=== PATIENT | female | born 1995 | race Caucasian/White ===

== ENCOUNTER 2017-07-20 15:34 | Emergency (ER) | payer BC, OTHER ==
[~2017-07-20] VITALS: Ht 154.9 cm; Wt 106.7 kg
[~2017-07-20 15:34] MED LIST: ENOX1INJ10 SQ; PRENTAB26 PO
[2017-07-20 15:36] VITALS: BP 185/98; PULSE 92; TEMP 36.8; O2SAT 96; Ht 154.9 cm; Wt 106.7 kg
[2017-07-20] MEDS ORDERED: OXYC1TAB3 PO (15:55)
--- NOTE | 2017-07-20 15:57 | EMERGENCY ROOM VISIT NOTE ---
ED Visit Note First contact with patient: 15:41 CHIEF COMPLAINT: "Mouth, tooth, earache". HISTORY OF PRESENT ILLNESS: This 22-year-old female patient presented to the emergency department via private vehicle accompanied by male with a progressive toothache for past month when she fractured her left upper tooth. The patient believes it is coming from left upper tooth #13-14. The pain is now steady and severe and radiates to the left side of the face such as the left eye and left ear. The patient has a dentist appointment set up August 20 for complete upper dentition removal. They rate their pain a 4/10 and the ibuprofen and Tylenol they have been taking has not relieved the pain. Denies facial swelling or fever. The patient denies any discharge from the mouth. REVIEW OF SYSTEMS: A 6 system review of systems was completed with positives and pertinent negatives listed in the HPI. ALLERGIES: As noted below MEDICATIONS: As noted below PMH: Dental fracture SOCIAL HISTORY: Patient lives locally. PHYSICAL EXAM: Vitals are noted on the nurse's note and reviewed by myself. Vital signs stable. Temperature 36.8C orally. GENERAL: 22-year-old female, in no acute distress, nondiaphoretic, well-developed well-nourished. Mouth: The left dentition #13-14 tooth is fractured without any discharge or signs of an abscess. No erythema or edema. The remainder of the pharynx and tonsils are without erythema, edema, or exudate. The airway is patent. There is no facial swelling, cervical or submandibular lymphadenopathy. The patient appears slightly uncomfortable and in pain. The patient has overall fair dental hygiene. EARS: External auditory canals clear, tympanic membranes pearly anne without erythema or effusion bilaterally. ED COURSE: Patient was seen and evaluated as above. She was instructed us today status post fractured tooth. She admits that her family doctor has prescribed her Tylenol with codeine, but it is not helping. She notes this is her only active prescription. Positive drug monitoring system verifies this. She informed me that she does not want anything strong but needs to make it one month until she can have her teeth removed. She will be given oxycodone. She denied chance of . Although the [place] drug monitoring system does have various scrips throughout the course of a year, these appear to be from consistent individuals, and does not frequent ER here for pain medication like complaints. I will give her the benefit of the doubt in this case and give her pain medication. I did inform her however that we would not be able to manage this chronically. She will have to call the dentist for further evaluation and management. She was certainly invited back for any worsening of her symptoms such as infection. She was educated upon management, educated upon worrisome symptoms which to return, had questions answered prior to discharge, and was discharged home in good condition. IMPRESSION: Odontalgia In the evaluation and treatment of this patient, the following differential diagnoses were considered: Periapical Abscess, Osteonecrosis of the Jaw, Dental Fracture, Dental Caries, Souleymane's Angina, Vincent's Angina, Facial Cellulitis. No evidence of meningitis or encephalitis on exam. Medication list reviewed. Hypertensive I believe secondary to situation. Problem List Medical Problems: (1) Acute cystitis Status: Resolved (2) Bronchitis Status: Resolved (3) Kidney stone Status: Resolved (4) PNA (pneumonia) Status: Resolved (5) Renal stone Status: Resolved Surgical Problems: (1) History of cholecystectomy Status: Resolved Current/Historical Medications Scheduled Enoxaparin Sodium (Lovenox), 40 MG SQ DAILY Multivit/Min/Iron/Fol Ac/Pren ( Vitamin), 1 TAB PO DAILY Scheduled PRN Oxycodone Ir (Roxicodone Ir), 1-2 TAB PO Q4H PRN for Pain Allergies Coded Allergies: Dust (Verified Allergy, Unknown, ITCHY, 10/19/13) Meperidine (Verified Allergy, Unknown, HIVES, 10/19/13) Penicillins (Verified Allergy, Unknown, + TEST RESULT, 10/19/13) Vital Signs Date Time Temp Pulse Resp B/P (MAP) Pulse Ox O2 Delivery O2 Flow Rate FiO2 07/20/17 15:36 36.8 92 18 185/98 96 Room Air Departure Information Impression Primary Impression: Odontalgia Dispostion Home / Self-Care Condition GOOD Prescriptions Oxycodone Ir (Roxicodone Ir) 5 Mg Tab 1-2 TAB PO Q4H Y for Pain, #20 TAB For Initial Treatment Prov: Raghu Ingram PA-C 07/20/17 Referrals Emiliano Barr M.D. (PCP) Patient Instructions [facility] Additional Instructions You have been treated in the Emergency Department for Dental Pain. You have been prescribed Oxy IR to be used for pain control. This is a narcotic medication. You cannot drive or consume alcohol while on this medicine. This medicine should only be used for pain that cannot be controlled with over-the- counter pain medicines. For pain control, you can use the following [id number] medicines (if >12 yo): - Regular strength (325mg/tab) Tylenol (acetaminophen) 2 tabs every 4-6 hours as needed. Do not exceed 12 tablets in a 24 hour period. Avoid taking more than 3 grams (3000 mg) of Tylenol per day. This includes any other sources of acetaminophen you may take on a regular basis. - Regular strength (200 mg/tab) Advil (ibuprofen) 1-2 tabs every 4-6 hours as needed. Do not exceed a dose of 3200 mg per day. Refrain from smoking cigarettes or using chewing tobacco until you have been evaluated by your dentist. Keeping beverages lukewarm and consuming soft foods can decrease your pain. Warm compresses over the affected area may offer some relief. You MUST seek evaluation of your dental pain by a dentist following your visit to the Emergency Department. The Emergency Department is not capable of treating dental issues long-term. You should call your dentist as soon as possible to make an appointment for evaluation of your dental pain. Return to the emergency department if you develop the following symptoms despite treatment course outlined above: fever, intractable pain, increased redness, swelling, or purulent discharge.
== END 2017-07-20 15:59 | disposition home or self-care (01) ==
LOC: C.EDB 15:36 → C.EDD 15:59
DX: K08.89 Other specified disorders of teeth and supporting structures (principal); S02.5XXA Fracture of tooth (traumatic), initial encounter for closed fracture; X58.XXXA Exposure to other specified factors, initial encounter; Z87.442 Personal history of urinary calculi

== ENCOUNTER 2019-06-18 19:57 | Inpatient (IN) ==
[2019-06-18] MEDS ORDERED: VANCOMYCIN CONSULT ACTIVE PRN (20:38)
[2019-06-18] MEDS ORDERED: VANCOMYCIN HCL 2,250 MG in SODIUM CHLORIDE 0.9% 500 ML IV ONE (20:38)
[2019-06-18] MEDS ORDERED: AMPICILLIN/SULBACTAM SOD 3,000 MG in 0.9 % SODIUM CHLORIDE 100 ML IV STA (20:38)
[2019-06-18] MEDS ORDERED: ONDANSETRON INJ 2 MG/ML 2 ML VIAL IV STA (20:40)
[2019-06-18] MEDS ORDERED: MoRPHine SULFATE 4 MG/ML 1 ML CARP\\VIAL IV STA (20:40)
[2019-06-18] MEDS ORDERED: SODIUM CHLORIDE 0.9% 1000ML 500 ML IV ONE (20:40)
--- NOTE | 2019-06-18 21:24 | Emergency Department Note ---
Entered by Natasha Jackson acting as a scribe for Rafael Lockett MD History of Present Illness General Chief complaint: Infection, Wound Stated complaint: BIT BY CAT, INFECTED Time Seen by Provider: 06/18/19 20:32 Source: patient History of Present Illness Onset (ago): day(s) 2 Location: right (knuckles) Radiation: other (right forearm) Pain Consistency: + constant Maximum Pain Intensity: 9 Current Pain Intensity: 9 Quality: + other (throbbing) Relieved By: + other (raising right arm to chest) Associated symptoms: + other (swollen fingers on right hand, nausea, chills) The patient is a 23 year old female with a history of DVT and Factor 2 mutation blood disorder who presents to the Emergency Room with complaints of hand injury. 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 She went to an urgent care following the injury and got an x-ray of her hand. She is UTD on her tetanus shot and the cat was UTD on all vaccines including rabies. Since the injury she reports that her hand pain worsened and states that her fingers are now swollen. She describes her pain as constant, throbbing, and a 9/10 in severity. The patient also explains that the pain is now shooting up her right forearm and is relieved when she raises her arm to her chest. Ad ditionally, since the injury she began to feel chills and nausea. She was seen in the [place] ED 1 day ago and received Unasyn IV, Toradol IV, and Zofran IV with no relief. Of note, the patient is pre-diabetic but is not on any insulin or medications for diabetes. She denies a history of liver or spleen problems and offers no additional concerns at this time. Home Medications Home Medications Medication Instructions Recorded Confirmed Type medroxyprogesterone [Depo-Provera] 1 dose IM UD 08/07/18 06/18/19 History Allergies Allergy/AdvReac Type Severity Reaction Status Date / Time meperidine Allergy Unknown HIVES Verified 06/18/19 21:46 Dust Allergy Unknown ITCHY Uncoded 06/18/19 21:46 Past Med/Surg History Medical History Asthma inhaler prn Cardiac murmur Deep vein thrombosis 2014--left leg Factor II deficiency History of anesthesia reaction had "horrible chest pain upon waking up from tonsillectomy 05/2018 gave me something and I was ok" Kidney stones Migraine Nausea and vomiting after administration of anesthetic agent Prediabetes Sleep apnea test results inconclusive, no device yet Surgical History History of ankle joint replacement x2 left History of section History of cholecystectomy History of tonsillectomy History of tooth extraction all top teeth History of wisdom tooth extraction Status post cystoscopy with ureteral stent placement Status post wrist surgery right Family History Mother Family history of reaction to anesthesia nausea/vomiting Grandfather (Maternal) Family history of diabetes mellitus Social History Preferred Language: Romansh Communication Ability: Effective 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 and A total of 10 systems reviewed and were otherwise negative Physical Exam Vital Signs Vital Signs - 24 hr 06/18/19 20:00 06/18/19 22:00 Temperature 36.6 C Temperature Source Oral Pulse Rate 94 H 74 Pulse Rate from SpO2 Sensor 76 Pulse Rhythm Regular Pulse Strength Normal Respiratory Rate 20 15 Respiratory Effort / Characteristics Non-Labored Spontaneous Respiratory Depth Normal Respiratory Pattern Regular Blood Pressure 161/122 H 160/99 H Blood Pressure Mean 135 115 Blood Pressure Position Sitting Pulse Oximetry 100 98 Oxygen Delivery Method Room Air Sepsis Recent Fever Within 48 Hours No Sepsis Action Taken by Nursing No Action Required GENERAL: Patient is in no acute distress. HEENT: No acute trauma, normocephalic atraumatic, mucous membranes moist, no nasal congestion, no scleral icterus. NECK: No stridor, no adenopathy, no meningismus, trachea is midline. LUNGS: Clear to auscultation bilaterally, no wheeze, no rhonchi, breath sounds equal. HEART: Without murmurs gallops or rubs, regular rate and rhythm. ABDOMEN: Soft, nontender, bowel sounds positive, no hernias, no peritonitis. EXTREMITIES: Swelling, erythema, and warmth to the dorsum of the right hand and also involving the 3rd and 4th fingers. The erythema has spread beyond its outline. Significant pain to move the 4th MCP joint and with 4th finger extension. Mild pain to extend the 3rd finger. No pain to move the wrist. NEUROLOGIC: Oriented x 3, no acute motor or sensory deficits, no focal weakness. SKIN: No jaundice, no diaphoresis. Course Course 2034: Past medical records reviewed. The patient was evaluated in room B09. A complete history and physical exam was performed. 2049: I spoke to Dr. Almaguer, [facility]. He will see the patient tomorrow and antibiotics and x-ray is all that is needed for tonight. NPO at midnight. 2109: I spoke to Dr. Bennett, [facility] Hospitalist who accepts the patient for admission. 2152: I checked on the patient and she is currently experiencing shortness of breath which may be a side effect of the morphine. 2234: I rechecked the patient and she is doing better. The patient verbally expressed understanding and agreement of the treatment plan. The patient will be evaluated by the hospitalist for further treatment. Administered Medications Vancomycin HCl 2,250 mg/ (Sodium Chloride) 545 mls @ 200 mls/hr IV NOW ONE Stop: 06/18/19 23:21 Last Admin: 06/18/19 22:19 Dose: 200 mls/hr Documented by: [id number] Discontinued Medications Diphenhydramine HCl (Benadryl) 25 mg IV NOW STA Stop: 06/18/19 21:54 Last Admin: 06/18/19 21:57 Dose: 25 mg Documented by: [id number] Diphenhydramine HCl (Benadryl) Confirm Administered Dose 50 mg .ROUTE .STK-MED ONE Stop: 06/18/19 21:54 Last Admin: 06/18/19 21:58 Dose: Not Given Documented by: [id number] Ampicillin Sodium/Sulbactam Sodium 3,000 mg/ Sodium Chloride 108 mls @ 200 mls/hr IV NOW STA; Protocol Stop: 06/18/19 21:10 Last Infusion: 06/18/19 22:25 Dose: 0 mls/hr Documented by: [id number] Admin: 06/18/19 21:29 Dose: 200 mls/hr Documented by: [id number] Sodium Chloride (Nss 1000ml) 500 mls @ 999 mls/hr IV .Q31M ONE Stop: 06/18/19 21:10 Last Infusion: 06/18/19 21:58 Dose: 0 mls/hr Documented by: [id number] Admin: 06/18/19 21:25 Dose: 999 mls/hr Documented by: [id number] Morphine Sulfate (Morphine Sulfate) 4 mg IV NOW STA Stop: 06/18/19 20:41 Last Admin: 06/18/19 21:24 Dose: 4 mg Documented by: [id number] Ondansetron HCl (Zofran) 4 mg IV NOW STA Stop: 06/18/19 20:41 Last Admin: 06/18/19 21:25 Dose: 4 mg Documented by: [id number] Medical Decision Making Differential Diagnosis Differential diagnosis includes but is not limited to tenosynovitis, fracture, foreign body, septic joint, failed outpatient treatment, pasteurella. Medical Records Attestation: I reviewed the patient's medical records. Home Medications Current Medication List: was personally reviewed by me Laboratory Data Attestation: I reviewed the patient's lab results. Result diagrams: 06/18/19 20:49 06/18/19 22:21 Lab Results 06/18/19 06/18/19 Range/Units 20:49 20:49 WBC 12.42 H (4.8-10.8) K/uL RBC 5.14 (4.2-5.4) M/uL Hgb 14.4 (12.0-16.0) g/dL Hct 42.0 (37-47) % MCV 81.7 (80-100) fL MCH 28.0 (25-34) pg MCHC 34.3 (32-36) g/dL RDW Std Deviation 40.8 (36.4-46.3) fL RDW Coeff of Jason 13.6 (11.5-14.5) % Plt Count 296 (130-400) K/uL MPV 9.9 (7.4-10.4) fL Immature Gran % (Auto) 0.2 % Neut % (Auto) 59.0 % Lymph % (Auto) 31.3 % [place] % (Auto) 8.1 % Eos % (Auto) 1.2 % Baso % (Auto) 0.2 % Immature Gran # (Auto) 0.03 H (0.00-0.02) K/uL Neut # (Auto) 7.32 H (1.4-6.5) K/uL Lymph # (Auto) 3.89 H (1.2-3.4) K/uL [place] # (Auto) 1.01 H (0.11-0.59) K/uL Eos # (Auto) 0.15 (0-0.5) K/uL Baso # (Auto) 0.02 (0-0.2) K/uL Sodium 138 (136-145) mmol/L Potassium (3.5-5.1) mmol/L Chloride 110 H (98-107) mmol/L Carbon Dioxide 23 (21-32) mmol/L Anion Gap 5.0 (3-11) BUN 14 (7-18) mg/dl Creatinine 0.86 (0.6-1.2) mg/dl Est Cr Clr Drug Dosing 116.9 ml/min Est GFR ( Amer) 109.6 Est GFR (Non-Af Amer) 94.6 BUN/Creatinine Ratio 15.9 (10-20) Glucose 141 H (70-99) mg/dl Calcium 9.5 (8.5-10.1) mg/dl Imaging Data Radiologist's Impression: Radiology results as stated below per my review and the radiologist's interpretation: RIGHT HAND 3 VIEWS HISTORY: cat bite, poss tooth COMPARISON: None. FINDINGS: There is no fracture or dislocation. Dorsal soft tissue swelling. No radiopaque foreign bodies. IMPRESSION: Dorsal soft tissue swelling within the right hand. No radiopaque foreign bodies. Electronically signed by: Patrick Vasquez M.D. 06/18/2019 10:00 PM Blood Pressure Blood Pressure Findings: Elevated blood pressure Blood Pressure Disposition: further management by hospitalist SHAISTA Narrative There is a mild leukocytosis at 12,000, this certainly could be consistent with infection. There is a normal hemoglobin at 14. No significant electrolyte abnormality or kidney failure. Right hand film shows some soft tissue swelling, no fracture, no foreign debris. On exam, the patient appeared to have a tenosynovitis of the right hand and fourth finger. There was a lot of pain to move the right fourth MCP joint. The patient received IV vancomycin and IV Unasyn. She was given IV Zofran and IV morphine. She had some chest heaviness after the dose of morphine and then was given a dose of IV Benadryl, this did help the chest heaviness resolve. The patient has a right hand cellulitis/tenosynovitis. There may be some invo lvement of the right fourth MCP joint. She has failed outpatient treatment, she is worsening, IV antibiotics are indicated. The patient may require orthopedic intervention. I did speak to orthopedics, they will see her tomorrow and decide if a procedure is required. I spoke to the patient and case management. The on-call hospitalist was consulted. Impression & Plan Tenosynovitis of hand, Cellulitis of hand, right, Cat bite, Failure of outpatient treatment Discharge Plan Visit Data Chief Complaint: Infection, Wound Stated Complaint: BIT BY CAT, INFECTED ED Provider: Rafael Lockett Discharge Problem: Tenosynovitis of hand, Cellulitis of hand, right, Cat bite, Failure of outpatient treatment Patient Disposition: Being Evaluated by Hospitalist Discharge Problem: Cat bite Qualifiers: Encounter type: subsequent encounter Qualified Code(s): W55.01XD - Bitten by cat, subsequent encounter The scribe's documentation has been prepared under my direction and personally reviewed by me in its entirety. I confirm that the note above accurately refle cts all work, treatment, procedures, and medical decision making performed by me.
[2019-06-18 21:32] LABS: Basophils # (auto) 0.02 K/uL (0-0.2); Basophils % (auto) 0.2 %; Eosinophils # (auto) 0.15 K/uL (0-0.5); Eosinophils % (auto) 1.2 %; Hemoglobin 14.4 g/dL (12.0-16.0); Immature Granulocytes # (auto) 0.03 K/uL (0.00-0.02); Immature Granulocytes % (auto) 0.2 %; Lymphocytes # (auto) 3.89 K/uL (1.2-3.4); Lymphocytes % (auto) 31.3 %; Mean Corpuscular Hgb Conc 34.3 g/dL (32-36); Mean Corpuscular Volume 81.7 fL (80-100); Mean Platelet Volume 9.9 fL (7.4-10.4); Monocytes # (auto) 1.01 K/uL (0.11-0.59); Monocytes % (auto) 8.1 %; Neutrophils # (auto) 7.32 K/uL (1.4-6.5); Platelet Count 296 K/uL (130-400); RDW Coefficient of Variation 13.6 % (11.5-14.5); RDW Standard Deviation 40.8 fL (36.4-46.3); Red Blood Count 5.14 M/uL (4.2-5.4); White Blood Count 12.42 K/uL (4.8-10.8)
[2019-06-18] MEDS ORDERED: DiphenhydrAMINE HCL 50 MG/ML VIAL IV STA (21:53)
[2019-06-18] MEDS ORDERED: DiphenhydrAMINE HCL 50 MG/ML VIAL ONE (21:53)
[2019-06-18 21:57] LABS: BUN Creatinine Ratio 15.9 (10-20); Calcium 9.5 mg/dl (8.5-10.1); Creatinine Clr Calc Pharmacy 116.9 ml/min; Est GFR (African American) 109.6; Est GFR (Non-African American) 94.6
--- NOTE | 2019-06-18 22:02 | XRay Report ---
RIGHT HAND 3 VIEWS HISTORY: cat bite, poss tooth COMPARISON: None. FINDINGS: There is no fracture or dislocation. Dorsal soft tissue swelling. No radiopaque foreign bod ies. IMPRESSION: Dorsal soft tissue swelling within the right hand. No radiopaque foreign bodies. Electronically signed by: Patrick Vasquez M.D. 06/18/2019 10:00 PM
[2019-06-18] MEDS ORDERED: ACETAMINOPHEN 1,000 MG/100 ML VIAL IV PRN (22:11)
[2019-06-18] MEDS ORDERED: MoRPHine SULFATE 4 MG/ML 1 ML CARP\\VIAL IV PRN (22:11)
--- NOTE | 2019-06-18 22:16 | History & Physical Report ---
Date of Service June 18, 2019 Assessment & Plan (1) Infected cat bite of hand: 23-year-old female was admitted on 18 June 2019 for progressively worsening cat bite right hand puncture wound. Infected cat bite right hand puncture wound: Bite on Dec at 11:30 am, progressively worsening despite outpatient Augmentin. Reportedly cat is healthy and vaccinated. Patients says last tetanus was about three years ago. Patient reports some more systemic infectious symptoms over the past 24 hours. Does not have all the classic [place] signs at present. - In ED, afebrile, not tachycardic or tachypneic, is hypertensive, with normal room SpO2. WBC 12. X-rays of the right hand noted dorsal soft tissue swelling without foreign body seen. - In ED, treated with single dose vancomycin, Unasyn, morphine, Zofran, and normal saline IVF. ED spoke with ortho (Dr. Almaguer) who reportedly recommended NPO in case of OR in AM. - Will keep on Unasyn 3 g IV every 6 hours. Tylenol and morphine (both prn) for pain. Formal ortho consult placed. Check an hCG. Elevated blood pressure: Initial BP 161/122. No noted previous formal diagnosis of hypertension. Patient says she actually has more issues with hypotension. - Would benefit from continued outpatient evaluation/management. Ongoing medical issues: - Asthma: Patient says is rarely symptomatic, no issues with exercise, and does not use inhalers. - DVT, factor II deficiency: Left leg in 2014. Also notes a blood clot in her abdomen in November 2015 at the time of her . Says she is only on blood thinners tracie-procedurally and during . - Migraine: Perhaps twice a year. Not on routine meds. - Nephrolithiasis: History of bilateral stones. Previous stent placement in 2016. - Pre-diabetes: Will check a HbA1c. - Obesity, ? ELLY: BMI 46. Patient says previous home sleep apnea study was inconclusive but denies snoring. Is not on CPAP at home. Code status: Full code. Diet: NPO. DVT prophy: Heparin every 8 hours. PT/OT: Deferred. Disbo: Admit to MedSurg. 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 She says she had a single puncture wound over the dorsal fourth MCP joint. She near immediately went to a local urgent care, had an x-ray which reportedly showed no foreign body or bony injury, and was started on Augmentin. She has had progressive increased local swelling, pain, and now difficulty with finger/wrist range of motion. She is also developed nausea, chills, and subjective fever. She was seen in the [place] ED yesterday morning, reportedly given Augmentin IV + Toradol + Zofran without any relief. She presents here for further care. Allergies Allergy/AdvReac Type Severity Reaction Status Date / Time meperidine Allergy Unknown HIVES Verified 06/18/19 21:46 Dust Allergy Unknown ITCHY Uncoded 06/18/19 21:46 Home Medications Home Medications Medication Instructions Recorded Confirmed Type medroxyprogesterone [Depo-Provera] 1 dose IM UD 08/07/18 06/18/19 History Past Med/Surg History Medical History Asthma inhaler prn Cardiac murmur Deep vein thrombosis 2014--left leg Factor II deficiency History of anesthesia reaction had "horrible chest pain upon waking up from tonsillectomy 05/2018 gave me something and I was ok" Kidney stones Migraine Nausea and vomiting after administration of anesthetic agent Prediabetes Sleep apnea test results inconclusive, no device yet Surgical History History of ankle joint replacement x2 left History of section History of cholecystectomy History of tonsillectomy History of tooth extraction all top teeth History of wisdom tooth extraction Status post cystoscopy with ureteral stent placement Status post wrist surgery right Family History Mother Family history of reaction to anesthesia nausea/vomiting Grandfather (Maternal) Family history of diabetes mellitus Social History Preferred Language: Qatari Communication Ability: Effective Wool Classer Required: No Beliefs That Will Affect Care: None Current Living Situation: Family and Significant Other Current Living Situation Comment: Lives with figinger and son Other Information That Helps Us Care for You: No Feels Safe at Home: Yes Safety Concerns: Feels Safe At This Time Smoking Status: Never smoker Second Hand Exposure: No ; Hx Alcohol Use: No Hx Substance Use: No Review of Systems Review of Systems: Constitutional: Positive subjective fever and chills. Eyes: Denies any visual loss or diplopia ENT: Denies any ear/nose/throat pain or difficulty speaking or swallowing Respiratory: Denies any dyspnea, cough, hemoptysis Cardiovascular: Denies any chest pain or feeling of edema Gastrointestinal: Denies any abdominal pain, nausea/vomiting/diarrhea Musculoskeletal: See HPI. Skin: See HPI. Neuro: Denies any headache, acute focal weakness or numbness, or difficulties with speech or swallow. Physical Exam Physical Exam: GENERAL: Awake, alert, well-appearing, in no acute distress. HENT: Normocephalic, atraumatic. Oropharynx unremarkable. EYES: Normal conjunctiva. Sclera non-icteric. NECK: Inspection normal. Supple and full ROM. No nuchal rigidity. CARDIAC: +S1S2 RRR, no murmurs. RESPIRATORY: Clear to auscultation. No wheezes or rales. Normal respiratory effort. GI: +BS, soft, non-distended. No tenderness to palpation. No rebound or guarding. RIGHT UPPER EXTREMITY: There is a puncture wound over the dorsal fourth MCP joint without any present discharge. An area somewhat circumferentially encompassing the 3rd-5th MCP joints is edematous, erythematous, and is warm and painful to touch. There are two previously drawn sharpie marker lines delineating areas of erythema. There is significantly limited flexion of the same three digits. She holds her fingers in a slightly flexed position. No tenderness on the palmar aspects of the fingers or circumferential erythema. Significantly decreased but intact sensation in the fourth finger. Mildly decreased sensation in the third and fifth fingers. Cap refill less than 2 seconds in all digits. There is some mild tenderness to palpation over the distal dorsal forearm. There is a well-healed surgical scar over the dorsal forearm. Results & Data Vital Signs (Past 12 Hours) Vital Signs Temp Pulse Resp BP Pulse Ox 06/18/19 20:00 36.6 C 94 H 20 161/122 H 100 Laboratory Results 06/18/19 06/18/19 Range/Units 20:49 20:49 WBC 12.42 H (4.8-10.8) K/uL RBC 5.14 (4.2-5.4) M/uL Hgb 14.4 (12.0-16.0) g/dL Hct 42.0 (37-47) % MCV 81.7 (80-100) fL MCH 28.0 (25-34) pg MCHC 34.3 (32-36) g/dL RDW Std Deviation 40.8 (36.4-46.3) fL RDW Coeff of Jason 13.6 (11.5-14.5) % Plt Count 296 (130-400) K/uL MPV 9.9 (7.4-10.4) fL Immature Gran % (Auto) 0.2 % Neut % (Auto) 59.0 % Lymph % (Auto) 31.3 % [place] % (Auto) 8.1 % Eos % (Auto) 1.2 % Baso % (Auto) 0.2 % Immature Gran # (Auto) 0.03 H (0.00-0.02) K/uL Neut # (Auto) 7.32 H (1.4-6.5) K/uL Lymph # (Auto) 3.89 H (1.2-3.4) K/uL [place] # (Auto) 1.01 H (0.11-0.59) K/uL Eos # (Auto) 0.15 (0-0.5) K/uL Baso # (Auto) 0.02 (0-0.2) K/uL Sodium 138 (136-145) mmol/L Potassium (3.5-5.1) mmol/L Chloride 110 H (98-107) mmol/L Carbon Dioxide 23 (21-32) mmol/L Anion Gap 5.0 (3-11) BUN 14 (7-18) mg/dl Creatinine 0.86 (0.6-1.2) mg/dl Est Cr Clr Drug Dosing 116.9 ml/min Est GFR ( Amer) 109.6 Est GFR (Non-Af Amer) 94.6 BUN/Creatinine Ratio 15.9 (10-20) Glucose 141 H (70-99) mg/dl Calcium 9.5 (8.5-10.1) mg/dl Medications Administered Discontinued Medications Diphenhydramine HCl (Benadryl) 25 mg IV NOW STA Stop: 06/18/19 21:54 Last Admin: 06/18/19 21:57 Dose: 25 mg Documented by: [id number] Diphenhydramine HCl (Benadryl) Confirm Administered Dose 50 mg .ROUTE .STK-MED ONE Stop: 06/18/19 21:54 Last Admin: 06/18/19 21:58 Dose: Not Given Documented by: [id number] Ampicillin Sodium/Sulbactam Sodium 3,000 mg/ Sodium Chloride 108 mls @ 200 mls/hr IV NOW STA; Protocol Stop: 06/18/19 21:10 Last Admin: 06/18/19 21:29 Dose: 200 mls/hr Documented by: [id number] Sodium Chloride (Nss 1000ml) 500 mls @ 999 mls/hr IV .Q31M ONE Stop: 06/18/19 21:10 Last Infusion: 06/18/19 21:58 Dose: 0 mls/hr Documented by: [id number] Admin: 06/18/19 21:25 Dose: 999 mls/hr Documented by: [id number] Morphine Sulfate (Morphine Sulfate) 4 mg IV NOW STA Stop: 06/18/19 20:41 Last Admin: 06/18/19 21:24 Dose: 4 mg Documented by: [id number] Ondansetron HCl (Zofran) 4 mg IV NOW STA Stop: 06/18/19 20:41 Last Admin: 06/18/19 21:25 Dose: 4 mg Documented by: [id number] Code Status & VTE Plan Code Status Full code VTE Prophylaxis Plan VTE Prophylaxis will be ordered: Yes Supervising Physician Co-Signing Physician Notes Patient was seen and examined by me personally. I reviewed the chart, the orders and discussed the case in detail with Dr. Kit Serna MD . I read this H&P and agree with its contents to entirety. Resident Activity Tracking Resident Involvement: Resident Care Provided Care Provided: Adult Hospital Medicine
[2019-06-18] MEDS ORDERED: ONDANSETRON INJ 2 MG/ML 2 ML VIAL IV PRN (22:55)
[2019-06-19] MEDS: LACTATED RINGER'S 1,000 ML IV SCH ×3 (00:45→16:00)
--- NOTE | 2019-06-19 03:30 | Billing Data ---
Coding Level of Care Code 95756 Initial Inpt Care Lvl 2
[2019-06-19] MEDS: AMPICILLIN/SULBACTAM SOD 3,000 MG in 0.9 % SODIUM CHLORIDE 100 ML IV SCH ×4 (04:20→22:06)
[2019-06-19] MEDS ORDERED: KETOROLAC 30 MG/ML VIAL IV PRN (04:51)
[2019-06-19] MEDS ORDERED: HYDROmorphone INJ 0.5 MG/0.5 ML SYR IV PRN (04:51)
[2019-06-19] MEDS: HEPARIN SOD 5,000 UNIT/0.5 ML VIAL SQ SCH ×3 (06:28→22:07)
[2019-06-19 08:40] LABS: Estimated Average Glucose 126 mg/dl
[2019-06-19 08:46] LABS: BUN Creatinine Ratio 11.8 (10-20); Calcium 9.3 mg/dl (8.5-10.1); Creatinine Clr Calc Pharmacy 141.9 ml/min; Est GFR (African American) 138.2; Est GFR (Non-African American) 119.2; Potassium 3.8 mmol/L (3.5-5.1)
[2019-06-19] MEDS ORDERED: ALBUTEROL HFA 8 GM INHALER INH ONE (11:12)
--- NOTE | 2019-06-19 11:12 | Hospitalist Progress Note ---
Date of Service June 19, 2019 Assessment & Plan (1) Tenosynovitis of hand: * Patient admitted for cat bite, worsening erythema and pain left hand 3/4rd MCP despite PO and IV Augmentin as well as IV dose of Unasyn at [place]. Patient with reaction to IV Vancomycin in ED here. * Patient febrile prior to admission, but remains afebrile. WBC elevated at 12.4 today with evidence of left shift. * Orthopedics consult -- appreciate rec * NPO for OR this afternoon for I&D * Continue IV Unasyn * Infectious Disease consult -- appreciate recs (2) Cellulitis of hand, right: * Improving. As above (3) Infected cat bite of hand: * As above (4) Asthma: * Hx of -- patient states she does not use inhaler as outpatient * End expiratory wheezing heard today on exam -- will order albuterol HFA prn (5) History of DVT (deep vein thrombosis): * Unprovoked -- L leg 2014, Abd s/p in 2016. Denies any history of PE * Has factor II mutation -- states she requires lovenox following procedures as a precaution (6) Factor II deficiency: * As above -- patient follows with [facility] hematology -- patient states she has switched providers multiple times but believes she will be seeing Dr. Jiménez -- req records be forwarded (7) Prediabetes: * A1c 6.0 prior to admission, per patient. * A1c today 6.0-- patient continues to be managed by diet/exercise as outpatient (8) DVT prophylaxis: * Heparin SQ Dispo: OR today for I&D, Infectious disease consult, possible discharge tomorrow or Friday Subjective Patient evaluated this morning. Erythema improved dramatically, but still having considerable pain. Pain more tolerable with pain medication, although patient does state that she had a reaction to the morphine in the emergency room as well as a rash develop after receiving vancomycin. No fevers, chills reported today, but she states she has had them for several days. 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 Plan for OR this afternoon with Dr. Mukherjee for I&D. Review of Systems Constitutional: no fever and no chills Respiratory: no cough and no dyspnea Cardiovascular: no chest pain, no palpitations and no edema Gastrointestinal: no abdominal pain, no nausea, no vomiting, no constipation and no diarrhea/loose stools Genitourinary: no dysuria and no hematuria Musculoskeletal: + joint pain (Right hand, third and fourth digit) Integumentary: + erythema (R hand -- improved) rash in ER after IV vancomycin, resolved Physical Exam Constitutional: WD/WN, vitals as above + obese Eyes: PERRL, conjunctivae normal, anicteric sclerae Neck: trachea midline, no thyromegaly Respiratory: normal respiratory effort; no respiratory distress and no labored breathing Clear to auscultation bilaterally with the exception of left sided mid posterior lung expiratory wheezes Cardiovascular: Rate/Rhythm: regular rate and regular rhythm Heart Sounds: normal S1, normal S2 and + murmur Gastrointestinal (Abdomen): normal bowel sounds, soft, nontender, no hepatos plenomegaly obese Musculoskeletal: minimal erythema within markings, improved from admission pain with passive motion left hand dorsal aspect tender to palpation, especially over 3rd/4th MCP Neurologic: PERRL, EOMI, accommodation nl, no face palsy, no dysarthria Psychiatric: A+Ox3, euthymic affect Lymphatic: no cervical or axillary lymphadenopathy Results & Data Vital Signs (Past 12 Hours) Vital Signs Temp Pulse Resp BP Pulse Ox 06/19/19 07:29 36.8 C 82 16 105/70 99 06/19/19 00:12 36.9 C 105 H 16 135/84 99 06/19/19 00:05 36.9 C 88 16 135/85 99 Laboratory Results 06/19/19 06/19/19 06/19/19 Range/Units 07:37 07:37 07:37 WBC (4.8-10.8) K/uL RBC (4.2-5.4) M/uL Hgb (12.0-16.0) g/dL Hct (37-47) % MCV (80-100) fL MCH (25-34) pg MCHC (32-36) g/dL RDW Std Deviation (36.4-46.3) fL RDW Coeff of Jason (11.5-14.5) % Plt Count (130-400) K/uL MPV (7.4-10.4) fL Immature Gran % (Auto) % Neut % (Auto) % Lymph % (Auto) % [place] % (Auto) % Eos % (Auto) % Baso % (Auto) % Immature Gran # (Auto) (0.00-0.02) K/uL Neut # (Auto) (1.4-6.5) K/uL Lymph # (Auto) (1.2-3.4) K/uL [place] # (Auto) (0.11-0.59) K/uL Eos # (Auto) (0-0.5) K/uL Baso # (Auto) (0-0.2) K/uL Sodium 140 (136-145) mmol/L Potassium 3.8 (3.5-5.1) mmol/L Chloride 111 H (98-107) mmol/L Carbon Dioxide 22 (21-32) mmol/L Anion Gap 7.0 (3-11) BUN 8 D (7-18) mg/dl Creatinine 0.71 (0.6-1.2) mg/dl Est Cr Clr Drug Dosing 141.9 ml/min Est GFR ( Amer) 138.2 Est GFR (Non-Af Amer) 119.2 BUN/Creatinine Ratio 11.8 (10-20) Glucose 129 H (70-99) mg/dl Estimat Average Glucose 126 mg/dl Hemoglobin A1c 6.0 H (4.5-5.6) % Calcium 9.3 (8.5-10.1) mg/dl HCG, Quant < 1 mIU/ml 06/18/19 06/18/19 06/18/19 Range/Units 22:21 20:49 20:49 WBC 12.42 H (4.8-10.8) K/uL RBC 5.14 (4.2-5.4) M/uL Hgb 14.4 (12.0-16.0) g/dL Hct 42.0 (37-47) % MCV 81.7 (80-100) fL MCH 28.0 (25-34) pg MCHC 34.3 (32-36) g/dL RDW Std Deviation 40.8 (36.4-46.3) fL RDW Coeff of Jason 13.6 (11.5-14.5) % Plt Count 296 (130-400) K/uL MPV 9.9 (7.4-10.4) fL Immature Gran % (Auto) 0.2 % Neut % (Auto) 59.0 % Lymph % (Auto) 31.3 % [place] % (Auto) 8.1 % Eos % (Auto) 1.2 % Baso % (Auto) 0.2 % Immature Gran # (Auto) 0.03 H (0.00-0.02) K/uL Neut # (Auto) 7.32 H (1.4-6.5) K/uL Lymph # (Auto) 3.89 H (1.2-3.4) K/uL [place] # (Auto) 1.01 H (0.11-0.59) K/uL Eos # (Auto) 0.15 (0-0.5) K/uL Baso # (Auto) 0.02 (0-0.2) K/uL Sodium 138 (136-145) mmol/L Potassium 3.7 (3.5-5.1) mmol/L Chloride 110 H (98-107) mmol/L Carbon Dioxide 23 (21-32) mmol/L Anion Gap 5.0 (3-11) BUN 14 (7-18) mg/dl Creatinine 0.86 (0.6-1.2) mg/dl Est Cr Clr Drug Dosing 116.9 ml/min Est GFR ( Amer) 109.6 Est GFR (Non-Af Amer) 94.6 BUN/Creatinine Ratio 15.9 (10-20) Glucose 141 H (70-99) mg/dl Estimat Average Glucose mg/dl Hemoglobin A1c (4.5-5.6) % Calcium 9.5 (8.5-10.1) mg/dl HCG, Quant mIU/ml PG Care Time/CCT Total # of Minutes Spent Total Time Spent with Patient: Total time spent is greater than 50% in coordination of care (as documented) at patient's floor/unit and/or counseling patient:
[2019-06-19] MEDS ORDERED: ALBUTEROL HFA 8 GM INHALER INH PRN (11:37)
--- NOTE | 2019-06-19 11:40 | Orthopedic Consultation ---
Date of Consultation June 19, 2019 Assessment & Plan (1) Cat bite: Given the location of the cat bite as well as her physical exam I would be highly suspicious that she is developing a septic MCP joint of the right fourth MCP. My recommendation would be for irrigation debridement of this joint. She also has a prior history of as she describes tendon realignment at the what appears to be a region of Jayna's tubercle. Her mother states that she had dislocating tendons when she was a child that required operative intervention. I do not appreciate any pain or tenderness in the region of her previous surgery however. I discussed the case with my partner Dr. Mukherjee and the plan will be for open irrigation debridement later today. Risks, benefits, alternatives to the procedure was discussed with the patient and she wishes to proceed. 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 She was placed on Augmentin that day. She had increasing pain swelling in the hand was evaluated in [place] and was given a dose of Unasyn. She was continued on oral antibiotics as well. She continued to have increasing pain swelling in the hand. She has been seen evaluated the emergency room here she is subsequently been placed on vancomycin as well. She complaining of pain of the right fourth MCP joint. She complains of pain going up the hand towards the region of the wrist. She had some pain that have been going up into the forearm as well but after the IV antibiotics that pain is resolved but she still having pain over the region of the MCP joint. She has a history of factor II deficiency and is on anticoagulation perioperatively and during but not daily. Allergies Allergy/AdvReac Type Severity Reaction Status Date / Time meperidine Allergy Unknown HIVES Verified 06/18/19 21:46 Dust Allergy Unknown ITCHY Uncoded 06/18/19 21:46 Home Medications Home Medications Medication Instructions Recorded Confirmed Type medroxyprogesterone [Depo-Provera] 1 dose IM UD 08/07/18 06/18/19 History Patient History Medical History Asthma inhaler prn Cardiac murmur Deep vein thrombosis 2014--left leg Factor II deficiency History of anesthesia reaction had "horrible chest pain upon waking up from tonsillectomy 05/2018 gave me something and I was ok" Kidney stones Migraine Nausea and vomiting after administration of anesthetic agent Prediabetes Sleep apnea test results inconclusive, no device yet Surgical History History of ankle joint replacement x2 left History of section History of cholecystectomy History of tonsillectomy History of tooth extraction all top teeth History of wisdom tooth extraction Status post cystoscopy with ureteral stent placement Status post wrist surgery right Family History Mother Family history of reaction to anesthesia nausea/vomiting Grandfather (Maternal) Family history of diabetes mellitus Social History Preferred Language: Slovak Communication Ability: Effective Wide Load Escort Required: No Beliefs That Will Affect Care: None Current Living Situation: Family and Significant Other Current Living Situation Comment: Lives with fiance and son Other Information That Helps Us Care for You: No Feels Safe at Home: Yes Safety Concerns: Feels Safe At This Time Smoking Status: Never smoker Second Hand Exposure: No ; Hx Alcohol Use: No Hx Substance Use: No Physical Exam Constitutional: WD/WN, vitals as above Neck: normal visual inspection Respiratory: normal respiratory effort Cardiovascular: Extremities: no edema Musculoskeletal: Right hand: There is a puncture wound over the dorsum of the fourth MCP joint. She is exquisitely tender to palpation in this region. She has significant pain with passive motion of the joint. She has a tenderness to goes along the extensor tendon. No significant pain with passive motion of the wrist joint. No tenderness palpation along the forearm. There is some mild erythema dorsally which she says has significantly improved with the IV antibiotics Results & Data Vital Signs (Past 12 Hours) Vital Signs Temp Pulse Resp BP Pulse Ox 06/19/19 07:29 36.8 C 82 16 105/70 99 06/19/19 00:12 36.9 C 105 H 16 135/84 99 06/19/19 00:05 36.9 C 88 16 135/85 99 (1) Cat bite Encounter type: subsequent encounter Qualified Code(s): W55.01XD - Bitten by cat, subsequent encounter
--- NOTE | 2019-06-19 11:45 | Anesthesiology Consultation ---
Date of Service June 19, 2019 Assessment & Plan (1) Encounter for pre-operative examination: Chart Review Chart Review: Acceptable Risk for Surgery and Patient NOT seen in Pre Admission Testing Consults Requested none History Surgery Operation Date: 06/19/19 13:00 Proposed Procedures p Incision and Deridement right hand(Right) - Massimo Mukherjee M.D. Height/Weight Height: 5 ft 1 in Weight: 112.2 kg Allergies Allergy/AdvReac Type Severity Reaction Status Date / Time meperidine Allergy Unknown HIVES Verified 06/18/19 21:46 Dust Allergy Unknown ITCHY Uncoded 06/18/19 21:46 Medications Home Medications Medication Instructions Recorded Confirmed Last Taken medroxyprogesterone [Depo-Provera] 1 dose IM UD 08/07/18 06/18/19 06/19/18 Active Medications Generic Name Dose Route Start Last Admin Trade Name Freq PRN Reason Stop Dose Admin Heparin Sodium (Porcine) 5,000 units 06/19/19 06:00 06/19/19 06:28 Heparin Sodium (Porcine) SQ 07/19/19 05:59 5,000 units Q8 SHANNON Administration Ampicillin Sodium/Sulbactam 108 mls @ 200 mls/hr 06/19/19 04:00 06/19/19 09:55 Sodium 3,000 mg/ Sodium IV 06/29/19 03:59 Infused Chloride Q6H SHANNON Infusion Protocol Lactated Ringer's 1,000 mls @ 80 mls/hr 06/18/19 22:55 06/19/19 00:45 Lr IV 07/18/19 22:54 80 mls/hr .[id number] SHANNON Administration NPO Date Last Intake of Fluids: 06/18/19 Time Last Intake of Fluids: 23:59 Date Last Intake of Solids: 06/18/19 Time Last Intake of Solids: 23:59 Past Medical History Medical History Asthma inhaler prn Cardiac murmur Deep vein thrombosis 2014--left leg Factor II deficiency History of anesthesia reaction had "horrible chest pain upon waking up from tonsillectomy 05/2018 gave me something and I was ok" Kidney stones Migraine Nausea and vomiting after administration of anesthetic agent Prediabetes Sleep apnea test results inconclusive, no device yet Past Family History Family History Mother Family history of reaction to anesthesia nausea/vomiting Grandfather (Maternal) Family history of diabetes mellitus Past Surgical History Surgical History History of ankle joint replacement x2 left History of section History of cholecystectomy History of tonsillectomy History of tooth extraction all top teeth History of wisdom tooth extraction Status post cystoscopy with ureteral stent placement Status post wrist surgery right Social History Smoking Status: Never smoker Hx Alcohol Use: No Hx Substance Use: No substance use type: does not use Physical Exam Vital Signs Last Vital Signs Temp 36.8 C 06/19/19 07:29 Pulse 82 06/19/19 07:29 Resp 16 06/19/19 07:29 BP 105/70 06/19/19 07:29 Pulse Ox 99 06/19/19 07:29 Testing Laboratory Results 06/18/19 20:49 06/19/19 07:37 Hemoglobin A1c 6.0 % (4.5-5.6) H 06/19/19 07:37 HCG, Quant < 1 mIU/ml 06/19/19 07:37 06/19/19 07:37 HCG, Quant < 1
[2019-06-19] MEDS ORDERED: ONDANSETRON INJ 2 MG/ML 2 ML VIAL ONE (12:32)
[2019-06-19] MEDS ORDERED: PROPOFOL IV EMULSION 10 MG/ML 20 ML VIAL IV ONE (12:32)
[2019-06-19] MEDS ORDERED: LIDOCAINE HCL 2% 2 ML VIAL/AMP(20MG/ML) INFIL ONE (12:32)
[2019-06-19] MEDS ORDERED: MIDAZOLAM HCL 1 MG/ML 2ML VIAL ONE (12:32)
[2019-06-19] MEDS ORDERED: DEXAMETHASONE SOD INJ 4 MG/ML VIAL ONE (12:32)
[2019-06-19] MEDS ORDERED: fentaNYL citrate 100 MCG/2 ML VIAL ONE (12:33)
[2019-06-19] MEDS ORDERED: SCOPOLAMINE 1.5 MG TDSY ONE (12:42)
[2019-06-19] MEDS ORDERED: fentaNYL citrate 100 MCG/2 ML VIAL IV PRN (12:47)
[2019-06-19] MEDS ORDERED: ATROPINE SULFATE 0.1 MG/ML 10ML SYR IV PRN (12:47)
[2019-06-19] MEDS ORDERED: ePHEDrine sulfate 50 MG/ML AMP IV PRN (12:47)
[2019-06-19] MEDS ORDERED: SCOPOLAMINE 1.5 MG TDSY TD ONE (12:47)
[2019-06-19] MEDS ORDERED: LABETALOL HCL IV 5 MG/ML 20ML IV PRN (12:47)
[2019-06-19] MEDS ORDERED: ONDANSETRON INJ 2 MG/ML 2 ML VIAL IV PRN (12:47)
[2019-06-19] MEDS ORDERED: PHENYLEPHRINE 100MCG/ML 5ML SYR IV PRN (12:47)
[2019-06-19] MEDS ORDERED: PROMETHAZINE HCL 12.5 MG in SODIUM CHLORIDE 0.9% 50 ML IV PRN (12:47)
[2019-06-19] MEDS ORDERED: HYDROmorphone INJ 1 MG/ML SYRINGE IV PRN (12:47)
--- NOTE | 2019-06-19 12:59 | History & Physical Bridge Note ---
Date of Service June 19, 2019 History & Physical Bridge Note I have examined the patient, reviewed the History & Physical and in the interval since the performance of the History & Physical I have noted the following changes of clinical significance: no changes noted
[2019-06-19] MEDS ORDERED: LIDOCAINE HCL 1% 20 ML VIAL ONE (13:00)
[2019-06-19] MEDS ORDERED: BUPIVACAINE 0.5 % 5 MG/1 ML MPF 30ML VIAL ONE (13:00)
--- NOTE | 2019-06-19 13:51 | Post Operative Brief Note ---
Immediate Post Op Note v1 Date of Surgery June 19, 2019 Pre & Post Diagnosis Operation Date: 06/19/19 13:00 Preop Diagnosis: Right ring finger MCP joint septic arthritis Postop Diagnosis: Right ring finger MCP joint superficial abscess I identified the patient and participated in the time-out.: Yes Procedure Operation Date: 06/19/19 13:00 Right ring finger irrigation and debridement of superficial abscess and MCP joint Surgeon Massimo Mukherjee [employer] None Estimated Blood Loss 5 Findings Consistent with Post-Op Diagnosis
[2019-06-19] MEDS ORDERED: CEFAZOLIN 2000MG 2,000 MG/15 ML SYR IV ONE (13:59)
--- NOTE | 2019-06-19 14:16 | Operative Report ---
Post Operative Report Pre & Post Diagnosis Operation Date: 06/19/19 13:00 Pre-Op Diagnosis: Right Ring Finger Metacarpophalangeal Joint Septic Arthritis Post-Op Diagnosis: Right Ring Finger Metacarpophalangeal Joint Small Superficial Abscess I identified the patient and participated in the time-out.: Yes Procedure Operation Date: 06/19/19 13:00 Actual Procedures Irrigation and Debridement Right Ring Finger Metacarpophalangeal Joint (42274) - Massimo Mukherjee M.D. 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 She had worsening pain and swelling centered at the puncture site directly over the dorsal aspect of the ring finger MCP joint despite antibiotics. She had severe pain with any motion of the MCP joint, and was therefore diagnosed with a likely septic arthritis. No evidence of a infectious flexor tenosynovitis. Surgical intervention was recommended. Risks, benefits, and alternatives of surgery were explained in detail. The patient understood all this and wished to proceed. Description of Procedure Patient was identified in the preoperative holding area. Operative extremity was marked. Patient was then brought back to the operating room, and general anesthesia was induced without complication. Appropriate weight-based dose of Ancef was infused intravenously for antibiotic prophylaxis. Tourniquet was placed on the right forearm. Forearm was then prepped and draped in a standard sterile fashion using Chlorhexidine prep. The forearm was then exsanguinated with an Esmarch, and the tourniquet was inflated. The single puncture site over the dorsal aspect of the right ring finger MCP joint was identified. Longitudinal incision was made directly over the dorsal aspect of the MCP joint going through this puncture wound. Immediately upon incision, there was approximately 1 to 2 cc of purulent fluid directly in the subcutaneous tissues. Fluid sample was obtained for anaerobic and aerobic cultures, as well as Gram stain. I dissected in the subcutaneous tissues to ensure there were no other pockets of purulent fluid. The abscess was evacuated, the subcutaneous tissues were debrided, and the underlying extensor tendon was inspected. There was no obvious puncture wound through the extensor tendon. However due to her preoperative symptoms that were consistent with a septic arthritis, I divided the extensor tendon in line with its fibers directly over the MCP joint to access the MCP joint. The joint capsule deep to the extensor tendon was also incised longitudinally and the MCP joint was entered. There was no purulent fluid found within the MCP joint. There was only a small amount of normal-appearing synovial fluid within the MCP joint. The subcutaneous abscess cavity and the MCP joint were copiously irrigated with sterile saline. I then closed the extensor tendon with 3-0 Vicryl suture. Tourniquet was let down and hemostasis was achieved with bipolar electrocautery. Skin was closed with 4-0 Prolene. I then anesthetized the wound bed with a 50/50 mixture of 1% lidocaine and 0.5% Marcaine without epinephrine. Sterile dressings were then applied with Xeroform, sterile gauze, and sterile Webril, followed by Coban. The drapes were removed, the patient was awakened from anesthesia, and taken to the Post Anesthesia Care Unit in stable condition. There were no immediate complications from the procedure. I was present and scrubbed for the entire procedure. I attest to the content of the Intraoperative Record and any orders documented therein. Any exceptions are noted below.
--- NOTE | 2019-06-19 14:28 | Anesthesiology Progress Note ---
Date of Service June 19, 2019 Anesthesia Post Procedure Vital Signs Vital Signs: Temp Pulse Pulse Pulse Resp BP BP 06/19/19 14:25 70 14 136/84 06/19/19 14:15 65 15 122/86 06/19/19 14:05 64 14 137/86 06/19/19 13:55 36.2 C L 94 H 16 120/84 06/19/19 07:29 36.8 C 82 16 105/70 06/19/19 00:12 36.9 C 105 H 16 135/84 06/19/19 00:05 36.9 C 88 16 135/85 06/18/19 22:50 36.9 C 88 16 135/85 06/18/19 22:00 74 15 160/99 H 06/18/19 20:00 36.6 C 94 H 20 161/122 H Pulse Ox 06/19/19 14:25 100 06/19/19 14:15 100 06/19/19 14:05 100 06/19/19 13:55 100 06/19/19 07:29 99 06/19/19 00:12 99 06/19/19 00:05 99 06/18/19 22:50 99 06/18/19 22:00 98 06/18/19 20:00 100 Pain Intensity Right Hand: Pain Intensity: 0 Transfer of Care Handoff Completed per policy Notes Mental Status: alert / awake / arousable Patient Amnestic to Procedure: Yes Nausea / Vomiting: adequately controlled Pain: adequately controlled Airway Patency, RR, SpO2: stable & adequate BP & HR: stable & adequate Hydration State: stable & adequate Anesthetic Complications: no major complications apparent and Pt Satisfied with anesthetic care
[2019-06-19] MEDS: CHECK SCOPOLAMINE PATCH PLACEMENT SCH ×2 (16:01→23:17)
[2019-06-20] MEDS: OXYCODONE/ACETAMINOPHEN 5mg/325mg TAB PO PRN ×4 (01:22→21:35)
[2019-06-20] MEDS: LACTATED RINGER'S 1,000 ML IV SCH ×2 (04:25→15:44)
[2019-06-20] MEDS: AMPICILLIN/SULBACTAM SOD 3,000 MG in 0.9 % SODIUM CHLORIDE 100 ML IV SCH ×4 (04:26→21:35)
[2019-06-20] MEDS: HEPARIN SOD 5,000 UNIT/0.5 ML VIAL SQ SCH ×3 (06:25→21:42)
--- NOTE | 2019-06-20 07:55 | Infectious Disease Consult ---
Date of Consultation June 20, 2019 Assessment & Plan (1) Tenosynovitis of hand: continue unasyn for now, follow OR cultures. If negative, can complete 3 week course of Augmentin 875mg po bid. continue local wound care. 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 States she is utd with immunizations, including tetanus as is the cat. she was initially given Augmentin, tolerated well but had contined pain, was admitted and evaluated by ortho. She was taken to OR 06/19, underwent I&D of small abscss, was found to have septic arthritis of index finger. OR cultures penidng, gram stain negative. wbc 12, on Unasyn and tolerating well. No pain in hand but states local anesthe essie has not worn off yet. able to move digits without pain, no f/c. no cp, sob, cough, no abd pain, no n/v/d. eating well. Allergies Allergy/AdvReac Type Severity Reaction Status Date / Time meperidine Allergy Unknown HIVES Verified 06/18/19 21:46 Dust Allergy Unknown ITCHY Uncoded 06/18/19 21:46 Home Medications Home Medications Medication Instructions Recorded Confirmed Type medroxyprogesterone [Depo-Provera] 1 dose IM UD 08/07/18 06/18/19 History Patient History Medical History Asthma inhaler prn Cardiac murmur Deep vein thrombosis 2014--left leg Factor II deficiency History of anesthesia reaction had "horrible chest pain upon waking up from tonsillectomy 05/2018 gave me something and I was ok" Kidney stones Migraine Nausea and vomiting after administration of anesthetic agent Prediabetes Sleep apnea test results inconclusive, no device yet Surgical History History of ankle joint replacement x2 left History of section History of cholecystectomy History of tonsillectomy History of tooth extraction all top teeth History of wisdom tooth extraction Status post cystoscopy with ureteral stent placement Status post wrist surgery right Family History Mother Family history of reaction to anesthesia nausea/vomiting Grandfather (Maternal) Family history of diabetes mellitus Social History Preferred Language: Pashto Communication Ability: Effective Jet 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 Operator Required: No Beliefs That Will Affect Care: None Current Living Situation: Family and Significant Other Current Living Situation Comment: Lives with fiance and son Other Information That Helps Us Care for You: No Feels Safe at Home: Yes Safety Concerns: Feels Safe At This Time Smoking Status: Never smoker Second Hand Exposure: No ; Hx Alcohol Use: No Hx Substance Use: No Review of Systems Review of Systems: All systems reviewed & are unremarkable except as noted in HPI & below Physical Exam Constitutional: WD/WN, vitals as above Eyes: PERRL, conjunctivae normal, anicteric sclerae ENMT: external ear and nose normal, oropharynx normal Neck: normal visual inspection Respiratory: normal respiratory effort, lungs clear to auscultation Cardiovascular: RRR, no murmur, no edema Gastrointestinal (Abdomen): normal bowel sounds, soft, nontender, no hepatosplenomegaly Musculoskeletal: no cyanosis or clubbing, extremities motor strength 5/5 Skin: no rashes, warm and dry right hand dressing c/d/i, able to move all finger. no edema, no eyrthema. Psychiatric: A+Ox3, euthymic affect Results & Data Vital Signs (Past 12 Hours) Vital Signs Temp Pulse Resp BP Pulse Ox 06/20/19 02:42 36.7 C 62 14 109/66 97 06/19/19 23:08 36.7 C 59 L 14 136/75 97 Laboratory Results Microbiology 06/19/19 13:26 Finger,Right Index Gram Stain - Final 06/19/19 13:20 Finger,Right Index Gram Stain - Final PG Care Time/CCT Total # of Minutes Spent Total Time Spent with Patient: Total time spent is greater than 50% in coordination of care (as documented) at patient's floor/unit and/or counseling patient:
--- NOTE | 2019-06-20 08:28 | Orthopedic Progress Note ---
Date of Service June 20, 2019 Assessment & Plan (1) Cat bite: Postop day 1 status post Irrigation and Debridement Right Ring Finger Metacarpophalangeal Joint Continue IV antibiotics. Appreciate ID input. Follow cultures for now. Continue elevation of right hand and gentle range of motion of fingers. Subjective Patient currently sitting up in bed awake and alert. No overt complaints this morning. States that she had some numbness in her ring finger of the operative hand but that has since resolved and she has some increased discomfort in around the MP joint that radiates slightly distal. She states she is unable to move the finger because of pain. Otherwise, the hand in general feels well. Physical Exam Physical Exam: Dressing is clean, dry, intact. Capillary refill of the fingers is less than 2 seconds. Sensation is intact. She is able to move the thumb index and middle and fifth fingers but she does not want to move the fourth finger secondary to causing pain. There is no overt erythema noted at this time. There is minimal swelling as well. Results & Data Vital Signs (Past 12 Hours) Vital Signs Temp Pulse Resp BP Pulse Ox 06/20/19 07:56 36.7 C 67 16 102/62 98 06/20/19 02:42 36.7 C 62 14 109/66 97 06/19/19 23:08 36.7 C 59 L 14 136/75 97 (1) Cat bite Encounter type: subsequent encounter Qualified Code(s): W55.01XD - Bitten by cat, subsequent encounter
[2019-06-20 09:13] LABS: Eosinophils # (auto) 0.01 K/uL (0-0.5); Eosinophils % (auto) 0.1 %; Hematocrit (blood only) 41.3 % (37-47); Hemoglobin 14.1 g/dL (12.0-16.0); Immature Granulocytes # (auto) 0.03 K/uL (0.00-0.02); Immature Granulocytes % (auto) 0.3 %; Lymphocytes # (auto) 2.57 K/uL (1.2-3.4); Lymphocytes % (auto) 21.7 %; Mean Corpuscular Hgb Conc 34.1 g/dL (32-36); Mean Corpuscular Volume 82.1 fL (80-100); Mean Platelet Volume 9.6 fL (7.4-10.4); Monocytes # (auto) 0.74 K/uL (0.11-0.59); Monocytes % (auto) 6.2 %; Neutrophils # (auto) 8.51 K/uL (1.4-6.5); Neutrophils % (auto) 71.7 %; Platelet Count 282 K/uL (130-400); RDW Coefficient of Variation 13.4 % (11.5-14.5); RDW Standard Deviation 40.4 fL (36.4-46.3); Red Blood Count 5.03 M/uL (4.2-5.4); White Blood Count 11.86 K/uL (4.8-10.8)
[2019-06-20 09:42] LABS: BUN Creatinine Ratio 13.8 (10-20); Creatinine Clr Calc Pharmacy 125.9 ml/min; Est GFR (African American) 119.6; Est GFR (Non-African American) 103.2; Potassium 3.9 mmol/L (3.5-5.1)
--- NOTE | 2019-06-20 10:58 | Anesthesiology Progress Note ---
Date of Service June 20, 2019 Anesthesia Post Procedure Vital Signs Vital Signs: Temp Pulse Pulse Pulse Resp BP Pulse Ox 06/20/19 07:56 36.7 C 67 16 102/62 98 06/20/19 02:42 36.7 C 62 14 109/66 97 06/19/19 23:08 36.7 C 59 L 14 136/75 97 06/19/19 17:57 36.8 C 81 16 117/55 L 96 06/19/19 16:44 36.9 C 95 H 16 124/82 90 06/19/19 15:45 36.9 C 84 16 138/83 98 06/19/19 15:15 36.7 C 77 16 121/79 98 06/19/19 14:45 36.8 C 81 16 133/91 100 06/19/19 14:35 36.6 C 65 15 127/76 99 06/19/19 14:25 70 14 136/84 100 06/19/19 14:15 65 15 122/86 100 06/19/19 14:05 64 14 137/86 100 06/19/19 13:55 36.2 C L 94 H 16 120/84 100 Pain Intensity Right Hand: Pain Intensity: 4 Transfer of Care Handoff Completed per policy Notes Mental Status: alert / awake / arousable Patient Amnestic to Procedure: Yes Nausea / Vomiting: adequately controlled Pain: adequately controlled Airway Patency, RR, SpO2: stable & adequate BP & HR: stable & adequate Hydration State: stable & adequate Anesthetic Complications: no major complications apparent and Pt Satisfied with anesthetic care Notes: The patient feels well.
--- NOTE | 2019-06-20 12:41 | Hospitalist Progress Note ---
Date of Service June 20, 2019 Assessment & Plan (1) Tenosynovitis of hand: * Patient admitted for cat bite, worsening erythema and pain left hand 3/4rd MCP despite PO and IV Augmentin as well as IV dose of Unasyn at [facility]. Patient with reaction to IV Vancomycin in ED here. * Patient febrile prior to admission, but remains afebrile. WBC elevated at 12.4k with evidence of left shift on admission. * Orthopedics consult -- appreciate rec * POD #1 s/p I&D RIGHT ring finger MCP joint with Dr. Mukherjee * Two cultures obtained --> moderate polys, no organisms. No growth currently. Continue to follow * Continue IV Unasyn * Infectious Disease consult -- appreciate recs -- if patient continues to improve, may be discharged with three week course of Augmentin 875mg BID and follow up with wound care (2) Cellulitis of hand, right: * Improving. As above (3) Infected cat bite of hand: * As above (4) Asthma: * Stable. Hx of -- patient states she does not use inhaler as outpatient * Without wheezing on exam today. Albuterol as needed (5) History of DVT (deep vein thrombosis): * Unprovoked -- L leg 2014, Abd s/p in 2016. Denies any history of PE * Has factor II mutation -- states she requires lovenox following procedures as a precaution. States she required 8 weeks following , but did not require any following her tonsillectomy last year. * Requests records be forwarded to Dr. Jiménez at discharge- will need follow- up (6) Factor II deficiency: * As above -- patient follows with [facility]ology -- patient states she has switched providers multiple times but believes she will be seeing Dr. Jiménez -- req records be forwarded (7) Prediabetes: * A1c 6.0 prior to admission, per patient. * A1c 6.0 during this admission-- patient continues to be managed by diet/exercise as outpatient. No medications currently. * Patient would likely benefit from metformin as outpatient, but would defer to PCP for initiation (8) DVT prophylaxis: * Heparin SQ Dispo: possible discharge tomorrow-- will need follow up with ortho, PCP, hematology, wound clinic Subjective Evaluated at bedside this morning. States she talked with ID and ortho but is supposed to see another individual from ortho this afternoon. Numbness after procedure completes resolved. ROM back to all fingers except ring finger. Mild-moderate amount of pain with movement but improved with PO pain medications. Review of Systems Review of Systems: All systems reviewed & are unremarkable except as noted in HPI & below Constitutional: no fever and no chills Respiratory: no cough, no dyspnea and no wheezing Cardiovascular: no chest pain, no palpitations and no edema Gastrointestinal: no abdominal pain, no nausea, no vomiting, no constipation and no diarrhea/loose stools Genitourinary: no dysuria and no hematuria Integumentary: no rash and no lesions Neurologic: no numbness and no paresthesia Physical Exam Constitutional: WD/WN, vitals as above + obese Eyes: PERRL, conjunctivae normal, anicteric sclerae Neck: trachea midline, no thyromegaly Respiratory: normal respiratory effort; no respiratory distress and no labored breathing Auscultation: lungs clear to auscultation bilaterally Cardiovascular: Rate/Rhythm: regular rate and regular rhythm Heart Sounds: normal S1, normal S2 and + murmur Gastrointestinal (Abdomen): normal bowel sounds, soft, nontender, no hepatosplenomegaly Musculoskeletal: Dressing c/d/i to RIGHT hand. Swelling improved. Minimal erythema. No evidence of streaking or spread. Sensation intact. Cap refill <2 seconds. Full ROM thumb, index, 3rd, 5th digit, but decreased ROM 4th digit at MCP secondary to pain. Neurologic: PERRL, EOMI, accommodation nl, no face palsy, no dysarthria Psychiatric: A+Ox3, euthymic affect Lymphatic: no cervical or axillary lymphadenopathy Results & Data Vital Signs (Past 12 Hours) Vital Signs Temp Pulse Resp BP Pulse Ox 06/20/19 07:56 36.7 C 67 16 102/62 98 06/20/19 02:42 36.7 C 62 14 109/66 97 Laboratory Results 06/20/19 06/20/19 Range/Units 08:55 08:55 WBC 11.86 H (4.8-10.8) K/uL RBC 5.03 (4.2-5.4) M/uL Hgb 14.1 (12.0-16.0) g/dL Hct 41.3 (37-47) % MCV 82.1 (80-100) fL MCH 28.0 (25-34) pg MCHC 34.1 (32-36) g/dL RDW Std Deviation 40.4 (36.4-46.3) fL RDW Coeff of Jason 13.4 (11.5-14.5) % Plt Count 282 (130-400) K/uL MPV 9.6 (7.4-10.4) fL Immature Gran % (Auto) 0.3 % Neut % (Auto) 71.7 % Lymph % (Auto) 21.7 % Blount % (Auto) 6.2 % Eos % (Auto) 0.1 % Baso % (Auto) 0.0 % Immature Gran # (Auto) 0.03 H (0.00-0.02) K/uL Neut # (Auto) 8.51 H (1.4-6.5) K/uL Lymph # (Auto) 2.57 (1.2-3.4) K/uL Blount # (Auto) 0.74 H (0.11-0.59) K/uL Eos # (Auto) 0.01 (0-0.5) K/uL Baso # (Auto) 0.00 (0-0.2) K/uL Sodium 138 (136-145) mmol/L Potassium 3.9 (3.5-5.1) mmol/L Chloride 109 H (98-107) mmol/L Carbon Dioxide 25 (21-32) mmol/L Anion Gap 4.0 (3-11) BUN 11 (7-18) mg/dl Creatinine 0.80 (0.6-1.2) mg/dl Est Cr Clr Drug Dosing 125.9 ml/min Est GFR ( Amer) 119.6 Est GFR (Non-Af Amer) 103.2 BUN/Creatinine Ratio 13.8 (10-20) Glucose 162 H (70-99) mg/dl Calcium 9.0 (8.5-10.1) mg/dl PG Care Time/CCT Total # of Minutes Spent Total Time Spent with Patient: Total time spent is greater than 50% in coordination of care (as documented) at patient's floor/unit and/or counseling patient:
[2019-06-20 13:14] LABS: Basophils # (auto) 0.01 K/uL (0-0.2); Basophils % (auto) 0.1 %; Eosinophils # (auto) 0.03 K/uL (0-0.5); Eosinophils % (auto) 0.2 %; Hematocrit (blood only) 40.1 % (37-47); Hemoglobin 13.7 g/dL (12.0-16.0); Immature Granulocytes # (auto) 0.04 K/uL (0.00-0.02); Immature Granulocytes % (auto) 0.3 %; Lymphocytes % (auto) 23.6 %; Mean Corpuscular Hemoglobin 28.2 pg (25-34); Mean Corpuscular Hgb Conc 34.2 g/dL (32-36); Mean Corpuscular Volume 82.5 fL (80-100); Mean Platelet Volume 9.5 fL (7.4-10.4); Monocytes # (auto) 1.09 K/uL (0.11-0.59); Monocytes % (auto) 7.8 %; Neutrophils # (auto) 9.49 K/uL (1.4-6.5); Platelet Count 283 K/uL (130-400); RDW Coefficient of Variation 13.3 % (11.5-14.5); RDW Standard Deviation 40.1 fL (36.4-46.3); Red Blood Count 4.86 M/uL (4.2-5.4); White Blood Count 13.96 K/uL (4.8-10.8)
[2019-06-20 13:32] LABS: BUN Creatinine Ratio 13.7 (10-20); Calcium 8.5 mg/dl (8.5-10.1); Creatinine Clr Calc Pharmacy 107.2 ml/min; Est GFR (African American) 98.4; Est GFR (Non-African American) 84.9; Potassium 3.8 mmol/L (3.5-5.1)
[2019-06-21] MEDS: AMPICILLIN/SULBACTAM SOD 3,000 MG in 0.9 % SODIUM CHLORIDE 100 ML IV SCH ×2 (04:25→10:29)
[2019-06-21] MEDS: HEPARIN SOD 5,000 UNIT/0.5 ML VIAL SQ SCH (06:09)
--- NOTE | 2019-06-21 07:50 | Anesthesiology Progress Note ---
Date of Service June 21, 2019 Anesthesia Post Procedure Vital Signs Vital Signs: Temp Pulse Resp BP Pulse Ox 06/20/19 23:07 36.5 C 76 16 120/73 99 06/20/19 20:05 36.9 C 83 16 96/59 L 100 06/20/19 15:10 36.8 C 71 16 129/76 97 06/20/19 07:56 36.7 C 67 16 102/62 98 Pain Intensity Right Hand: Pain Intensity: 4 Notes Mental Status: alert / awake / arousable and participated in evaluation Patient Amnestic to Procedure: Yes Nausea / Vomiting: adequately controlled Pain: adequately controlled Airway Patency, RR, SpO2: stable & adequate BP & HR: stable & adequate Hydration State: stable & adequate Anesthetic Complications: no major complications apparent and Pt Satisfied with anesthetic care
[2019-06-21] MEDS: OXYCODONE/ACETAMINOPHEN 5mg/325mg TAB PO PRN (07:57)
--- NOTE | 2019-06-21 08:47 | Orthopedic Progress Note ---
Date of Service June 21, 2019 Assessment & Plan (1) Cat bite: Postop day 1 status post Irrigation and Debridement Right Ring Finger Metacarpophalangeal Joint No further surgery needed. Much improved since surgery. Ok for dc per Ortho. Follow cultures for now. Continue elevation of right hand and gentle range of motion of fingers. Ortho will sign off at this time. Follow up with Dr Mukherjee in 7-10 days from surgery date. Instructions placed in EMR. Subjective POD 2 s/p I/D infected hand s/p cat bite Pt states her fingers/hand feel a little more sore this AM but she states that she has been doing her stretching exercises quite a lot. No other complaints. Feeling well. Physical Exam Physical Exam: Dressings changed. Incision benign. Erythema much improved per patient. Demarcation lines drawn earlier without erythema or swelling. Minimal swelling at best around the incision. No overt drainage. Much better ROM of the fingers today. Can almost make a complete fist with flexion. Extension is better as well. Cannot fully extend the 4th finger yet but is close. Passive extension does not cause pain. Cap refill is <2 seconds. Results & Data Vital Signs (Past 12 Hours) Vital Signs Temp Pulse Pulse Resp BP Pulse Ox 06/21/19 07:57 36.8 C 61 20 128/55 L 97 06/20/19 23:07 36.5 C 76 16 120/73 99 (1) Cat bite Encounter type: subsequent encounter Qualified Code(s): W55.01XD - Bitten by cat, subsequent encounter
--- NOTE | 2019-06-21 09:59 | Discharge Summary ---
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 She says she had a single puncture wound over the dorsal fourth MCP joint. She near immediately went to a local urgent care, had an x-ray which reportedly showed no foreign body or bony injury, and was started on Augmentin. She has had progressive increased local swelling, pain, and now difficulty with finger/wrist range of motion. She is also developed nausea, chills, and subjective fever. She was seen in the [place] ED yesterday morning, reportedly given Augmentin IV + Toradol + Zofran without any relief. She presents here for further care. Principal Diagnosis Tenosynovitis due to Infected Cat Bite Discharge Exam Constitutional WD/WN, vitals as above Eyes + anicteric sclerae ENMT Ears: no hearing impairment Neck trachea midline Respiratory normal respiratory effort, lungs clear to auscultation Cardiovascular RRR, no murmur, no edema Gastrointestinal (Abdomen) Inspection/Auscultation: normal bowel sounds Percussion/Palpation: abdomen soft; abdomen nontender Musculoskeletal Head/Neck/Chest: normocephalic and head atraumatic Skin no rashes, warm and dry R hand with dressing applied. Removed and assessed by orthopedics; fingers equal temperature with immediate cap refill. Some restriction with active ROM but acceptable given procedure/mild swelling (patient reporting improvement from yesterday) Neurologic moves all extremities Psychiatric A+Ox3, euthymic affect Discharge Data Allergies Allergy/AdvReac Type Severity Reaction Status Date / Time meperidine Allergy Unknown HIVES Verified 06/18/19 21:46 Dust Allergy Unknown ITCHY Uncoded 06/18/19 21:46 Consultations 06/18/19 21:10 ED Decision to Admit Stat 06/18/19 22:55 Consult Orthopedic Surgery Routine 06/19/19 14:50 Consult Infectious Diseases Routine Procedures Performed Operation Date: 06/19/19 13:00 Actual Procedures p Irrigation and Debridement Right Ring Finger(Right) - Massimo Mukherjee M.D. Hospital Course (1) Tenosynovitis of hand: -Patient admitted for worsening erythema and pain related to infected cat bite -worsening symptoms even in setting of p.o. and IV antibiotics -S/P I&D on 06/20 by orthopedics -range of motion and pain improving since surgery -Home instructions provided by orthopedics with plans for close follow- up with Dr. Mukherjee -ID following -recommended completion of Augmentin twice daily x3 weeks (2) Cellulitis of hand, right: -Improving-treatment as above (3) Infected cat bite of hand: -Treatment as above (4) Asthma: -Stable without acute exacerbation; patient reports she does not need to utilize inhaler as outpatient (5) History of DVT (deep vein thrombosis): -2015 and left leg and reports blood clot in her abdomen in 2016 after C- section; denies history of PE -Presence of factor II mutation -utilizes prophylactic anticoagulation for procedures -Follows with Dr. 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 (7) Prediabetes: -A1c 6.0-currently managed with diet and exercise -Recommend continued monitoring as an outpatient (8) DVT prophylaxis: Heparin Disposition -antibiotics x3 weeks with outpatient follow-up with orthopedics Total Time Total Time Spent Total Time Spent (In Minutes): Greater than 30 minutes Discharge Plan Discharge Items Patient Disposition: Home - Self-Care Reason For Visit: INFECTED CAT PUNCTURE BITE TO HAND Discharge Diagnosis: Infected Cat Bite Activity: Resume your previous activity Non-emergency contact: Primary Care Provider Call non-emergency contact if: you have any medication questions, your symptoms worsen and you have a fever Follow-up/Referrals: David Barr [Primary Care Provider] - Diet: Regular Addtl Attending Provider Instructions: Tenosynovitis of hand: -You were treated with IV antibiotics while in the hospital. Now that you had surgery to wash this area out the plan is to resume Augmentin. This is actually one of the best antibiotics given the common bacteria that cats carry - The plan from the infectious disease doctors (antibiotic doctors) is to continue Augmentin twice a day for three weeks - Please see instructions given by the orthopedic group on management of this site/dressing changes - You can use over the counter ibuprofen/tylenol if needed. Will give a short c ourse of stronger pain medication if needed. Be mindful these medications can make you sleepy and you should not drive if using these medications. Addtl Court Usher Provider Instructions: Instructions from your Orthopedic Providers: -Daily dressing changes. If minimal drainage, you may use 2 x 2 gauze and a small Javi wrap. -Do not get the wound wet for 72 hours from the time of surgery. -It is okay to shower with a waterproof covering over the dressing itself. After 72 hours you may get the wound wet but do not soak it. No tub baths. No direct shower pressure on the wound itself. Clean around the wound with a mild soap but do not scrub it. -Continue gentle range of motion exercises of your fingers regularly. -Keep the hand elevated when at rest. - Follow-up with Dr. Mukherjee in 7-10 days. Call for an appointment. [phone] Pending Studies at Discharge: No Stand-Alone Forms: My [facility], Work/School Release (Inpt), Smoking Cessation Medications and DC Order Prescriptions: New amoxicillin-pot clavulanate [Augmentin] 875-125 mg tablet 1 tab PO BID 21 Days Qty: 42 RF: 0 oxycodone-acetaminophen [Percocet] 5-325 mg Tablet 1 tab PO Q4H PRN (Reason: pain) 3 Days Qty: 10 RF: 0 Continued medroxyprogesterone [Depo-Provera] 150 mg/mL Syringe 1 dose IM UD RF: 0 Discharge Orders: Discharge Order (Routine); Ordered 06/21/19 Ordered By: Sunitha Robles/Other Patient Handouts: Prediabetes, Diabetes Healthy Meals, A1C Admission Data Admit Date/Time: 06/18/19 22:11 Attending Provider: Jakob Singh Admit Provider: Kit Serna Primary Care Provider: David Barr Other Providers: Huy Bennett ; Trenton Almaguer ; Jes Quiroga Other Interventions: Discharge Summary Assessment (RN) Last Done: 06/21/19 10:14 DC Date/Time DO NOT enter until pt leaves facility: 06/21/19 11:10 Supervising Physician Co-Signing Physician Notes Attending note: patient seen and examined with Sunitha Rivas PA-C. I agree with her discharge summary. I personally reviewed the labs and imaging findings. patient doing quite well, far less pain, less swelling since incision and drainage no fever/chills, eating well understands the plan to take Augmentin for 3 weeks - Cellulitis and tenosynovitis of the right hand, due to puncture wound with cat improved with antibiotics and incision and drainage, washout of the joint close follow up with Dr. Mukherjee d/c home to complete a 3 week course of Augmentin
== END 2019-06-21 11:10 | disposition home or self-care (01) | DRG 580 ==
LOC: ED 19:57 → SUATTDRO 22:11 → 3W 22:11

== ENCOUNTER 2025-01-28 10:06 | Observation (INO) ==
--- NOTE | 2025-01-28 10:43 | Emergency Department Note ---
Impression & Plan Kidney stone on right side, Flank pain, Intractable nausea and vomiting ED Provider Note NAME: CAITIE TREVINO AGE: 29 SEX: F : 1995 ARRIVES VIA: Walk-In INFORMANT: Patient, ED PROVIDER(S): Jorge Tang DO CHIEF COMPLAINT: Abdominal pain HPI: The patient is a 29-year-old female who presented to the emergency department for an evaluation of abdominal pain. The patient describes right upper quadrant abdominal pain and right flank pain which began acutely prior to arrival. The pain was very severe. She has a history of kidney stones but she is never had pain like this before. She denies having any lower extremity swelling or pain. She has trouble breathing. She has pain with taking a deep breath the patient did not see her family doctor but came directly to the emergency department. ROS: See above HPI for pertinent positives & negatives. A total of 10 systems reviewed and were otherwise negative. PAST MEDICAL HISTORY: See Below PAST SURGICAL HISTORY: See Below FAMILY HISTORY: See Below SOCIAL HISTORY: See Below HOME MEDICATIONS: See Below ALLERGIES: See Below VITALS: See Below PHYSICAL EXAMINATION: GENERAL: The patient is awake and alert. She is very anxious and appears to be uncomfortable. EYES: The conjunctivae are clear. The pupils are round and reactive. EARS, NOSE, MOUTH AND THROAT: The nose is without any evidence of any deformity. NECK: The neck is nontender and supple. RESPIRATORY: Normal respiratory effort is noted there is no evidence of wheezing rhonchi or rales CARDIOVASCULAR: Regular rate and rhythm noted there no murmurs rubs or gallops normal S1 normal S2. GASTROINTESTINAL: The abdomen is soft and nondistended. There is right upper quadrant tenderness to palpation which is moderate. BACK: Right CVA tenderness was noted to percussion. MUSCULOSKELETAL/EXTREMITIES: There is no evidence of gross deformity full range of motion is noted in the hips and shoulders. SKIN: There is no obvious evidence of any rash. There are no petechiae, pallor or cyanosis noted. NEUROLOGIC: Patient is awake alert and oriented x3 strength is symmetric patellar reflexes are 2+ bilaterally MEDICAL DECISION MAKING: The patient is a 29-year-old female who presented to the emergency department for an evaluation of flank pain. The patient had a rather acute onset of flank pain. She was found to have hematuria. Given the patient's degree of pain she was treated with IV fluids and IV pain medication in the emergency department. She was reevaluated multiple times. She was somewhat improved but overall did not appear to be stable for an outpatient follow-up with her family doctor or urology. For this reason I discussed her condition with the on-call [facility] hospitalist. Triage Nursing notes reviewed. Prior medical records reviewed Vital Signs: reviewed and remarkable for no significant abnormalities Differential diagnosis: Etiologies such as appendicitis, diverticulitis, obstruction, inflammatory bowel disease, renal colic, PUD, biliary pathology, pancreatitis, mesenteric ischemia, aortic pathology, infections, genitourinary, UTI, perforated viscus, as well as others were entertained. ER treatment provided: See below Diagnostics interpreted by me: ECG: EKG was obtained in the emergency department. My interpretation is normal sinus rhythm at 77 bpm. There was no ectopy. Nonspecific ST abnormalities were noted. This was compared to a tracing from August 30, 2018. No changes were noted. Cardiac Monitoring: An order was placed for continuous cardiac monitoring. The monitor shows a rate of 94 bpm with sinus rhythm. Laboratory studies: As stated above and show below. Imaging studies: See below. Radiographic imaging was reviewed by myself Consultation(s): I discussed this case with DONNA who is on for the [facility] hospitalist group. Past Med/Surg History Problem List (Updated 01/28/25 @ 13:17 by Jogre Tang DO) Kidney stone on right side (Acute) Person under investigation for COVID-19 (Acute) S/P surgical manipulation of ankle joint (Acute) Constipation (Acute 12/18/14) DVT (deep venous thrombosis) (Acute 10/19/13) DVT (deep venous thrombosis) (Acute) Dehydration (Acute) Flank pain (Acute) Intractable nausea and vomiting (Acute) Leg pain, left (Acute) Nephrolithiasis (Acute) Pyelonephritis (Acute) Renal colic (Acute) Tachycardia (Acute 10/20/13) Encounter for pre-operative examination Infected cat bite of hand Elevated blood pressure reading Asthma History of DVT (deep vein thrombosis) Factor II deficiency Migraine Tenosynovitis of hand (Acute) Cellulitis of hand, right (Acute) Cat bite (Acute) Failure of outpatient treatment (Acute) Encounter for pre-operative examination DVT prophylaxis Prediabetes Medical History (Updated 01/28/25 @ 13:17 by Jorge Tang DO) Cellulitis of left leg current diagnosis Morbid obesity with BMI of 45.0-49.9, adult History of anesthesia reaction had "horrible chest pain upon waking up from tonsillectomy 05/2018 gave me something and I was ok" Nausea and vomiting after administration of anesthetic agent Kidney stones Deep vein thrombosis 2014--left leg Factor II deficiency Migraine Cardiac murmur Sleep apnea no device Asthma inhaler prn Surgical History History of incision and drainage right ring finger 06/19/19 History of esophagogastroduodenoscopy (EGD) Status post wrist surgery right History of ankle joint replacement x2 left Status post cystoscopy with ureteral stent placement History of section History of cholecystectomy History of wisdom tooth extraction History of tooth extraction all top teeth History of tonsillectomy Family History Mother Family history of reaction to anesthesia nausea/vomiting Grandfather (Maternal) Family history of diabetes mellitus Social History Smoking Status: Never smoker Second Hand Exposure: No; Do You Dip or Chew Tobacco: No; Hx Alcohol Use: No Hx Substance Use: No Preferred Language: Georgian Communication Ability: Effective System Administration Manager Required: No Beliefs That Will Affect Care: None Current Living Situation: Family Current Living Situation Comment: Lives with son Feels Safe at Home: Yes Assistive Devices: Denture - Upper and Glasses Allergies Allergies Allergy/AdvReac Type Severity Reaction Status Date / Time morphine Allergy Severe SOB, CHEST Verified 09/03/24 08:38 PAIN, NAUSEA ampicillin [From Unasyn] Allergy Intermediate HIVES, Verified 09/03/24 08:38 REDDENED, SUPER ITCHY RASH meperidine Allergy Intermediate HIVES Verified 09/03/24 08:38 sulbactam [From Unasyn] Allergy Intermediate HIVES, Verified 09/03/24 08:38 REDDENED, SUPER ITCHY RASH house dust Allergy Mild Itchiness Verified 09/03/24 08:38 promethazine [From Phenergan] Allergy Hives Verified 01/28/25 12:56 vancomycin Allergy Unknown Verified 09/03/24 08:38 Home Meds Home Medications Medication Instructions Recorded Confirmed levonorgestrel 21 mcg/24 hr (up to 21 mcg intrauterine DIRECTED 01/28/25 01/28/25 8 years) 52 mg intrauterine device (Mirena) propranolol 20 mg tablet 20 mg PO DAILY 01/28/25 01/28/25 Results & Data (ED) Vital Signs Vital Signs - 24 hr 01/28/25 10:10 01/28/25 10:33 01/28/25 10:33 Temperature 36.5 C Temperature Source Temporal Artery Scan Pulse Rate 67 Pulse Rate [Apical] 72 Respiratory Rate 18 18 Respiratory Effort / Characteristics Non-Labored Spontaneous Non-Labored Spontaneous Respiratory Depth Normal Normal Respiratory Pattern Regular Regular Blood Pressure 123/79 Blood Pressure [Right Arm] 128/74 Blood Pressure Mean 93 Blood Pressure Mean [Right Arm] 92 Blood Pressure Position Sitting Pulse Oximetry 100 100 100 Oxygen Delivery Method Room Air Room Air Room Air Sepsis Recent Fever Within 48 Hours No Sepsis New/Unexplained Change in Mental Status No Sepsis Action Taken by Nursing No Action Required 01/28/25 10:33 01/28/25 10:35 Temperature Temperature Source Pulse Rate 72 94 H Pulse Rate [Apical] Respiratory Rate 18 Respiratory Effort / Characteristics Respiratory Depth Respiratory Pattern Blood Pressure Blood Pressure [Right Arm] Blood Pressure Mean Blood Pressure Mean [Right Arm] Blood Pressure Position Pulse Oximetry 100 Oxygen Delivery Method Room Air Sepsis Recent Fever Within 48 Hours Sepsis New/Unexplained Change in Mental Status Sepsis Action Taken by Long-Term Medications Current Medication List: was personally reviewed by me Laboratory Data Attestation: I reviewed the patient's lab results. 01/28/25 10:28 01/28/25 10:28 Lab Results 01/28/25 Range/Units 10:28 WBC 6.65 (4.8-10.8) K/ul RBC 4.41 (4.20-5.40) M/uL Hgb 13.1 (12.0-16.0) g/dl Hct 38.4 (37.0-47.0) % MCV 87.1 (80.0-100.0) fL MCH 29.7 (25.0-34.0) pg MCHC 34.1 (32.0-36.0) g/dL RDW Std Deviation 42.6 (36.4-46.3) fL RDW Coeff of Jason 13.4 (11.5-14.5) % Plt Count 233 (130-400) K/uL MPV 10.1 (9.4-12.4) fL Immature Gran % (Auto) 0.5 % Neut % (Auto) 69.2 % Lymph % (Auto) 23.6 % [place] % (Auto) 5.9 % Eos % (Auto) 0.5 % Baso % (Auto) 0.3 % Neut # (Auto) 4.61 (1.40-6.50) K/uL Lymph # (Auto) 1.57 (1.20-3.40) K/uL Ponce # (Auto) 0.39 (0.11-0.59) K/uL Eos # (Auto) 0.03 (0.00-0.50) K/uL Baso # (Auto) 0.02 (0.00-0.20) K/uL Immature Gran # (Auto) 0.03 (0.01-0.20) K/uL Sodium 138 (136-145) mmol/L Potassium 3.5 (3.5-5.1) mmol/L Chloride 107 (98-107) mmol/L Carbon Dioxide 26 (21-32) mmol/L Anion Gap 5 (3-11) BUN 11 (6-23) mg/dl Creatinine 0.72 (0.6-1.2) mg/dl Est Cr Clr Drug Dosing 98.4 ml/min eGFR 115.28 BUN/Creatinine Ratio 15.3 (10-20) Glucose 110 H (70-99(Fasting)) mg/dl Calcium 9.0 (8.6-10.3) mg/dl Total Bilirubin 0.9 (0.2-1.0) mg/dl AST 18 (13-39) U/L ALT 13 (7-52) U/L Alkaline Phosphatase 64 (34-104) U/L Troponin I High Sens < 2.3 (0-14) pg/ml Total Protein 6.9 (6.0-8.3) gm/dl Albumin 4.2 (3.4-5.0) gm/dl Globulin 2.7 (2.5-4.0) gm/dl Albumin/Globulin Ratio 1.6 (0.9-2) Lipase 32 (11-82) U/L HCG, Qual Negative (Negative) Urine Color [place] Urine Appearance Cloudy A (Clear) Urine pH 8.5 H (4.5-7.5) Ur Specific [place] 1.017 (1.000-1.030) Urine Protein 1+ H (Negative) Urine Glucose (UA) Negative (Negative) Urine Ketones Trace H (Negative) Urine Blood 3+ H (Negative) Urine Nitrite Negative (Negative) Urine Bilirubin Negative (Negative) Urine Urobilinogen Negative (Negative) Ur Leukocyte Esterase 2+ H (Negative) Urine WBC (Auto) 11-20 H (0-5) /hpf Urine RBC (Auto) >20 H (0-2) /hpf U Hyaline Cast (Auto) 6-10 H (0-2) /lpf U Epithel Cells (Auto) >20 H (0-2) /hpf Urine Bacteria (Auto) 4+ H (None Seen) Urine Comment Administered Medications Hydromorphone HCl (Hydromorphone Inj 0.5 Mg/0.5 Ml Syr) 0.5 mg IV Q15M PRN PRN Reason: Pain Stop: 02/11/25 10:26 Last Admin: 01/28/25 13:35 Dose: 0.5 mg Documented By: Admin: 01/28/25 11:13 Dose: 0.5 mg Documented By: Admin: 01/28/25 10:44 Dose: 0.5 mg Documented By: JE Ceftriaxone Sodium (Rocephin) 2,000 mg in 50 mls @ 100 mls/hr IV NOW STA Stop: 01/28/25 13:46 Last Admin: 01/28/25 13:34 Dose: 100 mls/hr Documented By: MARICRUZ Discontinued Medications Sodium Chloride (Nss) 500 mls @ 999 mls/hr IV .Q31M STA Stop: 01/28/25 10:57 Last Infusion: 01/28/25 11:16 Dose: Infused Documented By: Admin: 01/28/25 10:44 Dose: 999 mls/hr Documented By: JE Promethazine HCl (Phenergan) 12.5 mg in 50.5 mls @ 202 mls/hr IV NOW STA Stop: 01/28/25 12:54 Last Admin: 01/28/25 12:50 Dose: Not Given Documented By: MARICRUZ Ioversol (Optiray 320 100ml) 93 ml IV ONCE ONE Stop: 01/28/25 12:14 Last Admin: 01/28/25 12:13 Dose: 93 ml Documented By: LEIGHANN Ketorolac Tromethamine (Ketorolac Tromethamine 15 Mg/Ml Vial) 10 mg IV NOW ONE Stop: 01/28/25 12:41 Last Admin: 01/28/25 12:50 Dose: 10 mg Documented By: MARICRUZ Ondansetron HCl (Ondansetron Inj 2 Mg/Ml 2 Ml Vial) 4 mg IV NOW STA Stop: 01/28/25 10:28 Last Admin: 01/28/25 10:44 Dose: 4 mg Documented By: JE Imaging Data Attestation: I personally reviewed and interpreted this imaging study as follows: My Impression: CT of the abdomen and pelvis was obtained in the emergency department. My interpretation is hydronephrosis on the right kidney with a ureteral calculus noted, final report below. Radiologist's Impression: Abdomen/Pelvis CT 01/28/25 10:[address] WITH IV CONTRAST CT DOSE: 735.27 mGy.cm HISTORY: RUQ pain TECHNIQUE: Multiaxial CT images of the abdomen and pelvis were performed following the IV administration of 90 cc of Optiray, A dose lowering technique was utilized adhering to the principles of ALARA. COMPARISON STUDY: 02/08/2021 FINDINGS: ABDOMEN: Gallbladder is surgically absent. Liver, spleen, pancreas, and adrenal glands are unremarkable. There are multiple small bilateral renal calculi. There is minimal hydronephrosis of the right kidney. There is a 4 mm calculus proximally in the right ureter. No hydronephrosis or ureteral calculi left. Pelvis: IUD appears normally positioned. There is a 3 cm left ovarian cyst. Urinary bladder is mildly distended. No bowel inflammation or obstruction seen. No free fluid or free air. No enlarged adenopathy. Osseous structures: No acute osseous findings. IMPRESSION: 1. 4 mm calculus proximal right ureter causes minimal right hydronephrosis. 2. No other acute findings seen. ACT 112: Negative or not required by law. The above report was generated using voice recognition software. It may contain grammatical, syntax or spelling errors. Electronically signed by: Ja Rossi M.D. 01/28/2025 12:39 PM Discharge Plan Visit Data Chief Complaint: Shortness of Breath/Dyspnea Stated Complaint: ABD,BACK PAIN CAN'T BREATHING ED Provider: Jorge Tang Discharge Problem: Kidney stone on right side, Flank pain, Intractable nausea and vomiting Patient Disposition: Being Evaluated by Hospitalist Condition: Fair Forms Stand Alone Forms: My [employer] Prescriptions Prescriptions: No Action Mirena 21 mcg/24hr (up to 8 yrs) 52 mg Intrauterine Device 21 mcg intrauterine DIRECTED propranolol 20 mg Tablet 20 mg PO DAILY Referrals Referrals: David Barr [Outside Practitioners] -
[2025-01-28] MEDS: SODIUM CHLORIDE 0.9% 500 ML IV STA (10:44)
[2025-01-28] MEDS: HYDROmorphone INJ 0.5 MG/0.5 ML SYR IV PRN ×2 (10:44→19:06)
[2025-01-28] MEDS: ONDANSETRON INJ 2 MG/ML 2 ML VIAL IV STA (10:44)
[2025-01-28 10:52] LABS: Hematocrit (blood only) 38.4 % (37.0-47.0); Hemoglobin 13.1 g/dl (12.0-16.0); Immature Granulocytes # (auto) 0.03 K/uL (0.01-0.20); Immature Granulocytes % (auto) 0.5 %; Mean Corpuscular Hemoglobin 29.7 pg (25.0-34.0); Mean Corpuscular Volume 87.1 fL (80.0-100.0); Platelet Count 233 K/uL (130-400); RDW Standard Deviation 42.6 fL (36.4-46.3); Red Blood Count 4.41 M/uL (4.20-5.40); White Blood Count 6.65 K/ul (4.8-10.8)
[2025-01-28 11:10] LABS: Alanine Aminotransferase 13 U/L (7-52); Albumin Globulin Ratio 1.6 (0.9-2); Alkaline Phosphatase 64 U/L (34-104); Anion Gap 5 (3-11); Bilirubin,Total 0.9 mg/dl (0.2-1.0); Blood Urea Nitrogen 11 mg/dl (6-23); Calcium 9.0 mg/dl (8.6-10.3); Carbon Dioxide 26 mmol/L (21-32); Chloride 107 mmol/L (98-107); Creatinine Clr Calc Pharmacy 98.4 ml/min; Globulin 2.7 gm/dl (2.5-4.0); Glucose 110 mg/dl (70-99(Fasting)); Lipase 32 U/L (11-82); Potassium 3.5 mmol/L (3.5-5.1); Sodium 138 mmol/L (136-145); Total Protein 6.9 gm/dl (6.0-8.3)
[2025-01-28 11:42] LABS: Appearance Urine Cloudy (Clear); Bacteria Urine Automated 4+ (None Seen); Epithelial Cell Urine Auto >20 /hpf (0-2); Glucose Urine UA Negative (Negative); RBC Urine Automated >20 /hpf (0-2)
[2025-01-28] MEDS: OPTIRAY 320 100ml IV ONE (12:13)
--- NOTE | 2025-01-28 12:41 | CT Scan Report ---
ABDOMEN AND PELVIS CT WITH IV CONTRAST CT DOSE: 735.27 mGy.cm HISTORY: RUQ pain TECHNIQUE: Multiaxial CT images of the abdomen and pelvis were performed following the IV administrat ion of 90 cc of Optiray, A dose lowering technique was utilized adhering to the principles of ALARA. COMPARISON STUDY: 02/08/2021 FINDINGS: ABDOMEN: Gallbladder is surgically absent. Liver, spleen, pancreas, and adrenal glands are unremarkab le. There are multiple small bilateral renal calculi. There is minimal hydronephrosis of the right ki dney. There is a 4 mm calculus proximally in the right ureter. No hydronephrosis or ureteral calculi left. Pelvis: IUD appears normally positioned. There is a 3 cm left ovarian cyst. Urinary bladder is mildly distended. No bowel inflammation or obstruction seen. No free fluid or free air. No enlarged adenopa thy. Osseous structures: No acute osseous findings. IMPRESSION: 1. 4 mm calculus proximal right ureter causes minimal right hydronephrosis. 2. No other acute findings seen. ACT 112: Negative or not required by law. The above report was generated using voice recognition software. It may contain grammatical, syntax o r spelling errors. Electronically signed by: Ja Rossi M.D. 01/28/2025 12:39 PM
[2025-01-28] MEDS: PROMETHAZINE 12.5 MG/50.5 ML BAG IV STA (12:50)
[2025-01-28] MEDS: KETOROLAC TROMETHAMINE 15 MG/ML VIAL IV ONE (12:50)
[2025-01-28 12:54] LABS: Pregnancy Test, Serum Negative (Negative)
[2025-01-28] MEDS: cefTRIAXone SODIUM 2,000 MG/50 ML BAG IV STA (13:34)
--- NOTE | 2025-01-28 13:53 | History & Physical Report ---
Date of Service January 28, 2025 Assessment & Plan (1) Kidney stone on right side: (2) UTI (urinary tract infection): Plan This patient is a 29-year-old female who presented on 01/28 for acute onset of right lower quadrant abdominal pain radiating around her right flank to her right lower back. H/o kidney stones and UTIs leading to pyelonephritis. #Right proximal ureteral nephrolithiasis | UTI No leukocytosis; afebrile; LFTs WNL on arrival A/P CT revealed 4 mm calculus in proximal R ureter Urology consult appreciated NPO at midnight Possible stent place with Dr. Ovalle on 01/29 UA positive for infection on arrival No prior urine culture sensitivities available Ceftriaxone 2000 mg IV q24h IVF with NSS at 80mL/hr x 1 L IV Zofran PRN Scopolamine patch PRN IV pain control with acetaminophen and Dilaudid PRN Urine strainer ordered Tamsulosin 0.4mg p.o. HS Disposition: Obs - admit to [facility] PPx: SCDs pending potential urologic intervention History of Present Illness Chief Complaint: Right upper quadrant/flank pain Primary Care Provider: BELEM Pinzon Mrs. Prince is a 29-year-old female with PMH of kidney stones, pyelonephritis, cholecystectomy, bronchitis, DVT and factor II deficiency. She presented on 01/28 after acute onset of RLQ abdominal/flank pain while she was at work. 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 She was walking an inmate to court, when she suddenly developed this pain. Over a 5-minute period, it went from a 2/10 to a 10/10, and she was doubled over in pain. The pain took her breath away. She reports taking deep breaths made it worse. Patient did not take any pain medicine prior to coming to hospital. She reports her pain is 4/10 after receiving Dilaudid in the emergency department. Pain is exacerbated with movement, pressure, and palpation. Patient did not have anything to eat this morning. Patient does not take medicine on daily basis. She did take gabapentin last night for her sciatica; she takes 300 mg PRN. Initially, patient reports this felt different than her prior kidney stones, because she has never had pain in the right lower quadrant like this. She does have history of gallbladder removal. History of UTIs and pyelonephritis. She denies burning with urination or dysuria, but does report that she developed a suprapubic cramping after using the restroom in the ED. While she has a listed ampicillin allergy, she denies that it is a true penicillin allergy, and reports she has done well taking penicillins in the past. Other urologic history includes a stone getting stuck in her urethra, and "killing off" part of her urethra. Patient denies smoking, tobacco use, or recent alcohol use. Patient does have a history of kidney stones, but reports this feels completely different. ED course: Hydromorphone 0.5 mg IV x 3 Toradol 10 mg IV NSS 500 mL IV Ceftriaxone 2000 mg IV Zofran 4 mg IV ROS: Patient endorses chills, sweating, lightheadedness, JOHNSON, pleuritic CP (resolved), RLQ / right flank pain, nausea, vomiting, and suprapubic cramping after urination. Patient denies fever, SOB at rest, chest pain, chest palpitations, cough, diarrhea, burning with urination, blood in the urine/stool, dysuria, saddle anesthesia, or numbness/tingling in the legs. Allergies Allergy/AdvReac Type Severity Reaction Status Date / Time morphine Allergy Severe SOB, CHEST Verified 09/03/24 08:38 PAIN, NAUSEA ampicillin [From Unasyn] Allergy Intermediate HIVES, Verified 09/03/24 08:38 REDDENED, SUPER ITCHY RASH meperidine Allergy Intermediate HIVES Verified 09/03/24 08:38 sulbactam [From Unasyn] Allergy Intermediate HIVES, Verified 09/03/24 08:38 REDDENED, SUPER ITCHY RASH house dust Allergy Mild Itchiness Verified 09/03/24 08:38 promethazine [From Phenergan] Allergy Hives Verified 01/28/25 12:56 vancomycin Allergy Unknown Verified 09/03/24 08:38 Home Medications Medication Instructions Recorded Confirmed Type levonorgestrel 21 mcg/24 hr (up to 21 mcg intrauterine DIRECTED 01/28/25 01/28/25 History 8 years) 52 mg intrauterine device (Mirena) propranolol 20 mg tablet 20 mg PO DAILY 01/28/25 01/28/25 History Past Med/Surg History Problem List UTI (urinary tract infection) Kidney stone on right side (Acute) Person under investigation for COVID-19 (Acute) S/P surgical manipulation of ankle joint (Acute) Constipation (Acute 12/18/14) DVT (deep venous thrombosis) (Acute 10/19/13) DVT (deep venous thrombosis) (Acute) Dehydration (Acute) Flank pain (Acute) Intractable nausea and vomiting (Acute) Leg pain, left (Acute) Nephrolithiasis (Acute) Pyelonephritis (Acute) Renal colic (Acute) Tachycardia (Acute 10/20/13) Encounter for pre-operative examination Infected cat bite of hand Elevated blood pressure reading Asthma History of DVT (deep vein thrombosis) Factor II deficiency Migraine Tenosynovitis of hand (Acute) Cellulitis of hand, right (Acute) Cat bite (Acute) Failure of outpatient treatment (Acute) Encounter for pre-operative examination DVT prophylaxis Prediabetes Medical History Cellulitis of left leg current diagnosis Morbid obesity with BMI of 45.0-49.9, adult History of anesthesia reaction had "horrible chest pain upon waking up from tonsillectomy 05/2018 gave me something and I was ok" Nausea and vomiting after administration of anesthetic agent Kidney stones Deep vein thrombosis 2014--left leg Factor II deficiency Migraine Cardiac murmur Sleep apnea no device Asthma inhaler prn Surgical History History of incision and drainage right ring finger 06/19/19 History of esophagogastroduodenoscopy (EGD) Status post wrist surgery right History of ankle joint replacement x2 left Status post cystoscopy with ureteral stent placement History of section History of cholecystectomy History of wisdom tooth extraction History of tooth extraction all top teeth History of tonsillectomy Family History Mother Family history of reaction to anesthesia nausea/vomiting Grandfather (Maternal) Family history of diabetes mellitus Social History Smoking Status: Never smoker Second Hand Exposure: No; Do You Dip or Chew Tobacco: No; Hx Alcohol Use: No Hx Substance Use: No Preferred Language: Eritrean Communication Ability: Effective Dumbwaiter Operator Required: No Beliefs That Will Affect Care: None Current Living Situation: Spouse Current Living Situation Comment: Lives with son Other Information That Helps Us Care for You: No Feels Safe at Home: Yes Safety Concerns: Feels Safe At This Time Assistive Devices: None Review of Systems Review of Systems: See HPI above Physical Exam Physical Exam: General: no acute distress; pleasant affect; mother at bedside; non-toxic appearing; cooperative; SpO2 100% on RA HEENT: normocephalic, atraumatic; no scleral icterus; PERRLA; vision and hearing grossly intact Neck: supple; no lymphadenopathy; trachea midline Skin: warm, dry without signs of tenting; no cyanosis; no rashes, bruising, lesions, or erythema noted CV: chest wall NTP; RRR; S1/S2 normal; no murmurs/rubs/gallops; pulses intact and symmetric at radial, DP, and PT Lungs: no acute respiratory distress; symmetrical chest wall expansion; clear breath sounds across all lung glover w/o adventitious sounds; no wheezing ABD: Soft, right lower quadrant is TTP; RUQ is mildly TTP (she describes it as "pressure" or discomfort); LUQ and LLQ are NTP); no rashes or bruising appreciated on the abdomen or flanks bilaterally BS present; no rebound/guarding; no distention Back: Positive right-sided CVA tenderness MSK: no tics or fasciculations; no edema noted in the LEs b/l, nonerythematous Neuro: A&Ox3; normal mood and affect; fluent speech; no focal deficits; sensation intact and symmetric in the lower extremities bilaterally Results & Data Results & Data Vital Signs (Past 12 Hours) Vital Signs Temp Pulse Pulse Resp BP BP Pulse Ox 01/28/25 10:35 94 H 01/28/25 10:33 72 18 100 01/28/25 10:33 72 18 128/74 100 01/28/25 10:33 100 01/28/25 10:10 36.5 C 67 18 123/79 100 O2 Del Method 01/28/25 10:35 01/28/25 10:33 Room Air 01/28/25 10:33 Room Air 01/28/25 10:33 Room Air 01/28/25 10:10 Room Air Laboratory Results Abnormal lab results 01/28/25 Range/Units 10:28 Glucose 110 H (70-99(Fasting)) mg/dl Urine Appearance Cloudy A (Clear) Urine pH 8.5 H (4.5-7.5) Urine Protein 1+ H (Negative) Urine Ketones Trace H (Negative) Urine Blood 3+ H (Negative) Ur Leukocyte Esterase 2+ H (Negative) Urine WBC (Auto) 11-20 H (0-5) /hpf Urine RBC (Auto) >20 H (0-2) /hpf U Hyaline Cast (Auto) 6-10 H (0-2) /lpf U Epithel Cells (Auto) >20 H (0-2) /hpf Urine Bacteria (Auto) 4+ H (None Seen) Diagnostic Findings Abdomen/Pelvis CT 01/28/25 10:[address] WITH IV CONTRAST CT DOSE: 735.27 mGy.cm HISTORY: RUQ pain TECHNIQUE: Multiaxial CT images of the abdomen and pelvis were performed following the IV administration of 90 cc of Optiray, A dose lowering technique was utilized adhering to the principles of ALARA. COMPARISON STUDY: 02/08/2021 FINDINGS: ABDOMEN: Gallbladder is surgically absent. Liver, spleen, pancreas, and adrenal glands are unremarkable. There are multiple small bilateral renal calculi. There is minimal hydronephrosis of the right kidney. There is a 4 mm calculus proximal ly in the right ureter. No hydronephrosis or ureteral calculi left. Pelvis: IUD appears normally positioned. There is a 3 cm left ovarian cyst. Urinary bladder is mildly distended. No bowel inflammation or obstruction seen. No free fluid or free air. No enlarged adenopathy. Osseous structures: No acute osseous findings. IMPRESSION: 1. 4 mm calculus proximal right ureter causes minimal right hydronephrosis. 2. No other acute findings seen. ACT 112: Negative or not required by law. The above report was generated using voice recognition software. It may contain grammatical, syntax or spelling errors. Electronically signed by: Ja Rossi M.D. 01/28/2025 12:39 PM ECG Additional Comments: ECG revealed NSR with sinus arrhythmia at 77 bpm; QTc 432 Code Status & VTE Plan Code Status Full code VTE Prophylaxis Plan VTE Prophylaxis will be ordered: Yes Supervising Physician Co-Signing Physician Notes I personally examined the patient and verified all rolon points of history and exam, discussed case, and agree with decision making with Cecilia Cotton PAC feeling better pain under better control. urology input appreciated vitals noted nad heent nc at mmm breathing unlabored no accessory muscles good effort skin no rashes no pallor or icterus neuro no focal deficits ureterolithiasis - pain control, IV fluids, anti-emetics, time otherwise as above PG Care Time/CCT Total # of Minutes Spent Total Time Spent with Patient: Total time spent is greater than 50% in coordination of care (as documented) at patient's floor/unit and/or counseling patient: Coding [place] [address] INT INP/OBS CARE 3/75MIN Patient Type Established Medical Decision Making High Complexity Diagnoses Kidney stone on right side N20.0 UTI (urinary tract infection) N39.0
[2025-01-28] MEDS: SCOPOLAMINE 1 MG/72 HR TDSY PATCH TD ONE (14:08)
--- NOTE | 2025-01-28 15:08 | Electrocardiogram Report ---
Test Reason : Blood Pressure : */* mmHG Vent. Rate : 77 BPM Atrial Rate : 77 BPM P-R Int : 172 ms QRS Dur : 86 ms QT Int : 382 ms P-R-T Axes : 74 77 47 degrees QTcB Int : 432 ms Normal sinus rhythm with sinus arrhythmia Normal ECG When compared with ECG of 30-Aug-2018 12:16, No significant change was found Confirmed by Jorge Abdi ([id number]) on 01/28/2025 3:08:09 PM Referred By: REFERRED SELF Confirmed By: Jorge Abdi
--- NOTE | 2025-01-28 15:56 | Urology Consultation ---
Date of Consultation January 28, 2025 Assessment & Plan (1) Kidney stone on right side: 29 year old patient being admitted to the hospitalist service with 4mm right ureteral stone, with multiple stones in bilateral kidneys and mild hydronephrosis seen on ct Discussed treatment options with her including pain control/expulsive therapy vs cysto/stenting. Labs reviewed wbc 6.65, hgb 13.1, Cr 0.72 afebrile, vital signs stable Urine 3+blood, nitrite neg, 2+ LE, 4+bacteria, culture pending NPO after midnight. Will discuss with Dr Ovalle Recommend hydration, flomax, pain control. She was given rocephin. Plan Attending note: Patient independently evaluated assessed interviewed and evaluated by myself. Was set up for possible intervention if stone was unable to pass. Patient with stone and previous need for intervention. Has previously had significant stone disease. Being admitted for significant pain and discomfort. Agree with note as above. Patient's vitals and labs were all reviewed. Patient mildly tachycardic at morning. Has remained afebrile. Oxygen saturation was 100% on room air. Repeat labs from today show white count now down to 4.6 today. Pertinent values in the HPI and plan section. Imaging was reviewed interpreted by myself. Imaging showing significant stone in the proximal ureter approximately 4 mm on the right with hydronephrosis. Otherwise agree with read. Vitals were reviewed. Discussed findings extensively with patient and family. Reviewed with nurse practitioner as well as consulting physicians/team. Patient's complicated medical and surgical history was reviewed and summarized above. Patient's surgical, medical, social, and family history were all reviewed with pertinent values as above. Discussed patient's current diagnosis as well as concerns and issues. Reviewed different options moving forward. Discussed potential risks and benefits as well as possible options and concerns. Reviewed potential surgical options and interventions. Discussed potential issues and concerns related to intervention. Risk and benefits were discussed extensively with patient and any available family. Discussed potential risks related to anesthesia. Discussed risks of bleeding infection and injury. Discussed options for conservative measure and maximum expulsion medical therapy and symptom controlled. Discussed ESWL. Discussed Ureteroscopy with extraction and/or laser lithotripsy. Risks and benefits were discussed. Stone free rates were also discussed as well as possibility of multiple procedures. Ureteral stents were discussed as well as post-operative issues and pain management. All questions were answered. Risks and benefits discussed at length for procedure. These include bleeding, infection, injury to surrounding tissues or organs, and risks associated with anesthesia. Patient states understanding and agrees to proceed. Will sign consent and schedule. Plan for cystoscopy with possible right ureteroscopy and stone treatment History of Present Illness History of Present Illness 29 year old patient admitted to the hospitalist service with a 4mm right ureteral stone. She started having some right low back/flank pain and abdominal pain around 9am today. She did have some n/v. Denies hematuria or dysuria. Has a h/o multiple kidney stones, one episode required cysto/stent intervention. She thinks this was prior to 2015 and thinks she had some ureteral injury from the stone at the time. New consultation for patient with stone, discomfort, obstruction, and ill feelings. Patient developed sudden onset of pain into flank going down and radiating into groin and back in waves comes and goes. Can be severe at times. Discussed and reviewed patient's family history for any history of stone disease. Also, discussed patient's medical surgery history especially related to any history of urinary issues or stone disease. Patient was admitted and is undergoing observation. Allergies Allergy/AdvReac Type Severity Reaction Status Date / Time morphine Allergy Severe SOB, CHEST Verified 09/03/24 08:38 PAIN, NAUSEA ampicillin [From Unasyn] Allergy Intermediate HIVES, Verified 09/03/24 08:38 REDDENED, SUPER ITCHY RASH meperidine Allergy Intermediate HIVES Verified 09/03/24 08:38 sulbactam [From Unasyn] Allergy Intermediate HIVES, Verified 09/03/24 08:38 REDDENED, SUPER ITCHY RASH house dust Allergy Mild Itchiness Verified 09/03/24 08:38 promethazine [From Phenergan] Allergy Hives Verified 01/28/25 12:56 vancomycin Allergy Unknown Verified 09/03/24 08:38 Home Medications Medication Instructions Recorded Confirmed Type levonorgestrel 21 mcg/24 hr (up to 21 mcg intrauterine DIRECTED 01/28/25 01/28/25 History 8 years) 52 mg intrauterine device (Mirena) propranolol 20 mg tablet 20 mg PO DAILY 01/28/25 01/28/25 History Patient History Medical History Prediabetes Cellulitis of left leg current diagnosis Morbid obesity with BMI of 45.0-49.9, adult History of anesthesia reaction had "horrible chest pain upon waking up from tonsillectomy 05/2018 gave me something and I was ok" Nausea and vomiting after administration of anesthetic agent Kidney stones Deep vein thrombosis 2014--left leg Factor II deficiency Migraine Cardiac murmur Sleep apnea no device Asthma inhaler prn Surgical History History of incision and drainage right ring finger 06/19/19 History of esophagogastroduodenoscopy (EGD) Status post wrist surgery right History of ankle joint replacement x2 left Status post cystoscopy with ureteral stent placement History of section History of cholecystectomy History of wisdom tooth extraction History of tooth extraction all top teeth History of tonsillectomy Family History Mother Family history of reaction to anesthesia nausea/vomiting Grandfather (Maternal) Family history of diabetes mellitus Social History Smoking Status: Never smoker Second Hand Exposure: No; Do You Dip or Chew Tobacco: No; Hx Alcohol Use: No Hx Substance Use: No Preferred Language: Algerian Communication Ability: Effective Pricing Associate Required: No Beliefs That Will Affect Care: None Current Living Situation: Spouse Current Living Situation Comment: Lives with son Other Information That Helps Us Care for You: No Feels Safe at Home: Yes Safety Concerns: Feels Safe At This Time Assistive Devices: None Review of Systems Review of Systems: All systems reviewed & are unremarkable except as noted in HPI & below Physical Exam Physical Exam: General: Alert and oriented x 3 in no acute distress. Patient is well nourished and well kept. HEENT: Normocephalic Atraumatic. Inspection normal. Cranial Nerves 2-12 Grossly intact. Nares are clear. Neck is supple. Normal inspection of face. Normal inspection of neck. Neurologic: No deficits on inspection. Baseline for motor function and sensory. Psychologic: Normal affect. Respiratory: Nonlabored. No use of accessory muscles. No tachypnea or dyspnea. Cardiovascular: No tachycardia Skin: [place] and Dry. No rashes or visible lesions. Extremities: Moving without issues. No motor deficits on inspection Lymphatics: No edema Abdomen: Soft Non-distended. No acites. No rebound or guarding. Constitutional: well developed and well nourished; no acute distress Neck: normal visual inspection Respiratory: normal respiratory effort; no respiratory distress and no labored breathing Gastrointestinal (Abdomen): Percussion/Palpation: + abdomen tender and abdomen soft Psychiatric: A+Ox3, euthymic affect Genitourinary: + CVA tenderness Results & Data Vital Signs (Past 12 Hours) Vital Signs Temp Pulse Pulse Resp BP BP Pulse Ox 01/28/25 15:46 70 16 112/75 100 01/28/25 15:00 81 21 112/75 95 01/28/25 14:51 63 01/28/25 14:30 71 14 121/67 98 01/28/25 14:00 70 16 108/68 100 01/28/25 13:30 73 20 125/73 100 01/28/25 12:00 65 19 109/67 99 01/28/25 11:30 67 12 99/70 L 100 01/28/25 11:00 81 10 L 127/82 100 01/28/25 10:35 94 H 01/28/25 10:33 72 18 100 01/28/25 10:33 72 18 128/74 100 01/28/25 10:33 100 01/28/25 10:10 36.5 C 67 18 123/79 100 O2 Del Method 01/28/25 15:46 Room Air 01/28/25 15:00 01/28/25 14:51 01/28/25 14:30 01/28/25 14:00 01/28/25 13:30 01/28/25 12:00 01/28/25 11:30 01/28/25 11:00 01/28/25 10:35 01/28/25 10:33 Room Air 01/28/25 10:33 Room Air 01/28/25 10:33 Room Air 01/28/25 10:10 Room Air PG Care Time/CCT Total # of Minutes Spent Total Time Spent with Patient: Total time spent is greater than 50% in coordination of care (as documented) at patient's floor/unit and/or counseling patient: Coding Level of Care Code 60110 INT INP/OBS CARE 3/75MIN Diagnoses Kidney stone on right side N20.0
[2025-01-28] MEDS: TAMSULOSIN HCL 0.4 MG CAP PO ONE (17:04)
[2025-01-28] MEDS: SODIUM CHLORIDE 0.9% 1,000 ML IV SCH (17:04)
[2025-01-28] MEDS: CHECK SCOPOLAMINE PATCH PLACEMENT SCH (17:04)
[2025-01-28] MEDS: ONDANSETRON INJ 2 MG/ML 2 ML VIAL IV PRN (17:12)
[2025-01-28] MEDS: ACETAMINOPHEN 1,000 MG/100 ML VIAL IV PRN (17:17)
[2025-01-29] MEDS ORDERED: DEXAMETHASONE SOD INJ 4 MG/ML VIAL ONE (06:36)
[2025-01-29] MEDS ORDERED: LIDOCAINE 2% 2 ML VIAL/AMP(20MG/ML) INFIL ONE (06:36)
[2025-01-29] MEDS ORDERED: MIDAZOLAM HCL 1 MG/ML 2ML VIAL ONE (06:36)
[2025-01-29] MEDS ORDERED: ONDANSETRON INJ 2 MG/ML 2 ML VIAL ONE (06:36)
[2025-01-29] MEDS ORDERED: PROPOFOL IV EMULSION 10 MG/ML 20 ML VIAL IV ONE (06:36)
[2025-01-29] MEDS ORDERED: METOCLOPRAMIDE HCL INJ 5 MG/ML 2 ML VIAL ONE (06:37)
[2025-01-29 07:02] LABS: Hematocrit (blood only) 32.2 % (37.0-47.0); Hemoglobin 11.1 g/dl (12.0-16.0); Mean Corpuscular Hemoglobin 30.3 pg (25.0-34.0); Mean Corpuscular Volume 88.0 fL (80.0-100.0); Platelet Count 167 K/uL (130-400); RDW Standard Deviation 43.8 fL (36.4-46.3); Red Blood Count 3.66 M/uL (4.20-5.40); White Blood Count 4.68 K/ul (4.8-10.8)
--- NOTE | 2025-01-29 07:12 | Anesthesiology Consultation ---
Date of Service January 29, 2025 Assessment & Plan (1) Encounter for pre-operative examination: Chart Review Chart Review: Acceptable Risk for Surgery History Surgery Operation Date: 01/29/25 07:30 Proposed Procedures p Cystoscopy, Right Ureteral Stent Placement - Dimas Ovalle DO Height/Weight Height: 5 ft 1 in Weight: 63.8 kg Allergies Allergy/AdvReac Type Severity Reaction Status Date / Time morphine Allergy Severe SOB, CHEST Verified 09/03/24 08:38 PAIN, NAUSEA ampicillin [From Unasyn] Allergy Intermediate HIVES, Verified 09/03/24 08:38 REDDENED, SUPER ITCHY RASH meperidine Allergy Intermediate HIVES Verified 09/03/24 08:38 sulbactam [From Unasyn] Allergy Intermediate HIVES, Verified 09/03/24 08:38 REDDENED, SUPER ITCHY RASH house dust Allergy Mild Itchiness Verified 09/03/24 08:38 promethazine [From Phenergan] Allergy Hives Verified 01/28/25 12:56 vancomycin Allergy Unknown Verified 09/03/24 08:38 Medications Home Medications Medication Instructions Recorded Confirmed Last Taken levonorgestrel 21 mcg/24 hr (up to 21 mcg intrauterine DIRECTED 01/28/25 01/28/25 Unknown 8 years) 52 mg intrauterine device (Mirena) propranolol 20 mg tablet 20 mg PO DAILY 01/28/25 01/28/25 Unknown Active Medications Generic Name Dose Route Start Last Admin Trade Name Freq PRN Reason Stop Dose Admin Hydromorphone HCl 0.5 mg 01/28/25 16:22 01/28/25 19:06 Hydromorphone Inj 0.5 Mg/0.5 Ml Syr IV 02/11/25 16:21 0.5 mg Q2H PRN Administration Moderate Pain (6-10) on NRS Acetaminophen 1,000 mg in 100 mls @ 400 mls/hr 01/28/25 16:22 01/29/25 06:01 Ofirmev IV 01/31/25 16:21 Infused Q8H PRN Infusion Fever/Mild Pain (Pain 1-5) Miscellaneous 1 each 01/28/25 16:00 01/28/25 23:30 Check Scopolamine Patch Placement N/A 01/31/25 05:59 1 each QS SHANNON Administration Ondansetron HCl 4 mg 01/28/25 16:22 01/28/25 17:12 Ondansetron Inj 2 Mg/Ml 2 Ml Vial IV 02/27/25 16:21 4 mg Q6H PRN Administration Nausea Past Medical History Medical History (Updated 01/29/25 @ 07:11 by Loi Dominguez MD) Prediabetes Cellulitis of left leg current diagnosis Morbid obesity with BMI of 45.0-49.9, adult History of anesthesia reaction had "horrible chest pain upon waking up from tonsillectomy 05/2018 gave me something and I was ok" Nausea and vomiting after administration of anesthetic agent Kidney stones Deep vein thrombosis 2014--left leg Factor II deficiency Migraine Cardiac murmur Sleep apnea no device Asthma inhaler prn Past Family History Family History Mother Family history of reaction to anesthesia nausea/vomiting Grandfather (Maternal) Family history of diabetes mellitus Past Surgical History Surgical History History of incision and drainage right ring finger 06/19/19 History of esophagogastroduodenoscopy (EGD) Status post wrist surgery right History of ankle joint replacement x2 left Status post cystoscopy with ureteral stent placement History of section History of cholecystectomy History of wisdom tooth extraction History of tooth extraction all top teeth History of tonsillectomy Social History Smoking Status: Never smoker Do You Dip or Chew Tobacco: No Hx Alcohol Use: No Hx Substance Use: No substance use type: does not use Physical Exam Vital Signs Last Vital Signs Temp 36.7 C 01/28/25 19:50 Pulse 85 01/28/25 19:50 Resp 12 01/28/25 19:50 BP 113/69 01/28/25 19:50 Pulse Ox 99 01/28/25 19:50 O2 Del Method Room Air 01/28/25 19:50 Testing Laboratory Results 01/29/25 06:09 Urine Color [place] 01/28/25 10:28 Urine Appearance Cloudy (Clear) A 01/28/25 10:28 Urine pH 8.5 (4.5-7.5) H 01/28/25 10:28 Ur Specific [place] 1.017 (1.000-1.030) 01/28/25 10:28 Urine Protein 1+ (Negative) H 01/28/25 10:28 Urine Glucose (UA) Negative (Negative) 01/28/25 10:28 Urine Ketones Trace (Negative) H 01/28/25 10:28 Urine Nitrite Negative (Negative) 01/28/25 10:28 Ur Leukocyte Esterase 2+ (Negative) H 01/28/25 10:28 Urine WBC (Auto) 11-20 /hpf (0-5) H 01/28/25 10:28 Urine RBC (Auto) >20 /hpf (0-2) H 01/28/25 10:28 U Hyaline Cast (Auto) 6-10 /lpf (0-2) H 01/28/25 10:28 U Epithel Cells (Auto) >20 /hpf (0-2) H 01/28/25 10:28 Urine Bacteria (Auto) 4+ (None Seen) H 01/28/25 10:28 Laboratory Tests 01/28/25 10:28 Potassium 3.5 Creatinine 0.72
[2025-01-29 07:19] LABS: Anion Gap 2.0 (3-11); Blood Urea Nitrogen 8.0 mg/dl (6-23); Calcium 7.8 mg/dl (8.6-10.3); Carbon Dioxide 25.0 mmol/L (21-32); Chloride 111.0 mmol/L (98-107); Creatinine Clr Calc Pharmacy 113.5 ml/min; Glucose 79.0 mg/dl (70-99(Fasting)); Potassium 4.0 mmol/L (3.5-5.1); Sodium 138.0 mmol/L (136-145)
[2025-01-29] MEDS ORDERED: DROPERIDOL 5 MG/2 ML VIAL IV PRN (07:27)
[2025-01-29] MEDS ORDERED: ATROPINE SULFATE 0.1 MG/ML 10ML SYR IV PRN (07:27)
--- NOTE | 2025-01-29 07:30 | History & Physical Bridge Note ---
Date of Service January 29, 2025 History & Physical Bridge Note I have examined the patient, reviewed the History & Physical and in the interval since the performance of the History & Physical I have noted the following changes of clinical significance: no changes noted
[2025-01-29] MEDS ORDERED: ceFAZolin 330 MG/ML 1 GM VIAL ONE (07:58)
[2025-01-29] MEDS ORDERED: diphenhydrAMINE 50 MG/ML VIAL ONE (07:59)
[2025-01-29] MEDS: DIATRIZOATE MEGLUMINE 30% 100ML VIAL INSTIL PRN (08:19)
--- NOTE | 2025-01-29 08:34 | Operative Report ---
PG Post Operative Report Pre & Post Diagnosis Operation Date: 01/29/25 07:30 Pre-Op Diagnosis: Right sided kidney stone Post-Op Diagnosis: Right sided kidney stone I identified the patient and participated in the time-out.: Yes Procedure Operation Date: 01/29/25 07:30 Actual Procedures Cystoscopy with Right Ureteroscopy, Ureteral Dilation, Right Ureteral Stent Placement,Retrograde Pyelogram, and Stone basket Extraction(Right) - Dimas Ovalle DO Surgeon Dimas Ovalle, II, DO Soft Hat Binder None Estimated Blood Loss 1 Findings Consistent with Post-Op Diagnosis Mild stricture of the proximal ureter. Stone just proximal to this stricture. Stone did not appear to be impacted. Stricture dilated. Stone was extracted. Numerous small stones in the renal pelvis also extracted. Specimens Stonesright Drains 4.8 [place] by 24 double-J ureteral stent on the right. Anesthesia Type General Complications none Disposition Disposition: Recovery Room Indications Patient with bothersome stones. Risks and benefits discussed at length. Description of Procedure Patient was consented and brought back to the operating room. Patient was placed under anesthesia in the supine position and moved to the dorsal lithotomy position. Patient was prepped and draped in the regular sterile fashion. A time out was completed identifying the correct patient and procedure. A 30degree Cystoscope was placed into the bladder and the entire bladder was examined. The UO's were identified. The UO was cannulized with a catheter and a retrograde pyelogram was completed. A significant narrowing was noted in the proximal ureter at the proximal position of the previously visualized stone. A wire was then placed. A ureteral access sheath and second safety wire was placed. The flexible ureteroscope was taken into the ureter. The entire ureter and renal pelvis were examined. The stone was discovered in the proximal ureter. It just distal to where the stone was located there was a significant narrowing/stricture of the ureter. This was dilated and the scope was able to advance. No significant injury to the ureter was noted no fissures or other abnormalities. A stone basket was selected and the stone was able to be grasped and removed without major issue. The scope then advanced to the renal pelvis. Additional renal stones were identified. The basket was once again utilized and the stones were grasped and removed and sent for analysis. The entire area was once again examined. No residual large fragments or areas of concern were noted. The scope was slowly removed with the wire left in place. Contrast was placed through the scope for a pyelogram to assist in stent placement. The entire ureter was examined as the scope was slowly removed. No obstructions or other areas of concern were noted. With the wire in place, a 4.8 Fr Double J stent was placed. It was confirmed with fluoroscopy. With the stent in place, the bladder was emptied. The scope was removed. The patient was cleaned, aroused from anesthesia, and transferred to the pacu in stable condition having tolerated the procedure well with no complications. I was present and participated in all aspects of the procedure. The patient will be monitored in the PACU until transferred. Plan to monitor for patient being observed in the hospital. Patient may be able to be discharged later today. Will plan to have stent removed in approximately 1 to 2 weeks. I attest to the content of the Intraoperative Record and any orders documented therein. Any exceptions are noted below.
[2025-01-29] MEDS ORDERED: ACETAMINOPHEN 325 MG TAB PO PRN ×2 (09:57→18:11)
[2025-01-29 09:59] VITALS: RESP 16
[2025-01-29] MEDS: LIDOCAINE 5% 1 PATCH TD STA (10:43)
--- NOTE | 2025-01-29 10:46 | Anesthesiology Progress Note ---
Date of Service January 29, 2025 Anesthesia Post Procedure Vital Signs Vital Signs: Temp Pulse Pulse Pulse Resp BP BP 01/29/25 10:25 36.7 C 70 16 97/57 L 01/29/25 09:55 36.5 C 63 16 113/71 01/29/25 09:10 52 L 13 104/62 01/29/25 09:00 36.4 C L 57 L 15 135/69 01/29/25 08:50 80 14 106/72 01/29/25 08:40 79 20 122/67 01/29/25 08:30 36 C L 61 17 99/57 L 01/29/25 07:14 36.6 C 100 H 16 117/69 01/28/25 19:50 36.7 C 85 12 113/69 01/28/25 16:24 36.7 C 82 18 119/72 01/28/25 15:46 70 16 112/75 01/28/25 15:00 81 21 112/75 01/28/25 14:51 63 01/28/25 14:30 71 14 121/67 01/28/25 14:00 70 16 108/68 01/28/25 13:30 73 20 125/73 01/28/25 12:00 65 19 109/67 01/28/25 11:30 67 12 99/70 L 01/28/25 11:00 81 10 L 127/82 Pulse Ox O2 Del Method O2 Flow Rate 01/29/25 10:25 98 Room Air 01/29/25 09:55 98 Room Air 01/29/25 09:10 100 Room Air 01/29/25 09:00 100 Room Air 01/29/25 08:50 100 Room Air 01/29/25 08:40 100 Oxymask 6 01/29/25 08:30 100 Oxymask 6 01/29/25 07:14 102 H Room Air 01/28/25 19:50 99 Room Air 01/28/25 16:24 100 Room Air 01/28/25 15:46 100 Room Air 01/28/25 15:00 95 01/28/25 14:51 01/28/25 14:30 98 01/28/25 14:00 100 01/28/25 13:30 100 01/28/25 12:00 99 01/28/25 11:30 100 01/28/25 11:00 100 Pain Intensity Right Abdomen: Pain Intensity: 3 Transfer of Care Handoff Completed per policy Notes Mental Status: alert / awake / arousable Patient Amnestic to Procedure: Yes Nausea / Vomiting: adequately controlled Pain: adequately controlled Airway Patency, RR, SpO2: stable & adequate BP & HR: stable & adequate Hydration State: stable & adequate Anesthetic Complications: no major complications apparent
[2025-01-29] MEDS: FAMOTIDINE/PF 20 MG/2 ML VIAL IV ONE (10:59)
[2025-01-29] MEDS ORDERED: KETOROLAC TROMETHAMINE 10 MG TABLET PO PRN (11:21)
[2025-01-29] MEDS: KETOROLAC TROMETHAMINE 10 MG TABLET PO STA (11:37)
[2025-01-29] MEDS: cefTRIAXone SODIUM 2,000 MG/50 ML BAG IV ONE (12:29)
[2025-01-29] MEDS ORDERED: cefTRIAXone SODIUM 2,000 MG/50 ML BAG IV SCH (13:30)
--- NOTE | 2025-01-29 16:05 | Hospitalist Progress Note ---
Date of Service January 29, 2025 Assessment & Plan (1) Kidney stone on right side: (2) UTI (urinary tract infection): (3) Right flank pain: (4) History of DVT (deep vein thrombosis): (5) Anemia: Plan This patient is a 29-year-old female who presented on 01/28 for acute onset of right lower quadrant abdominal pain radiating around her right flank to her right lower back. H/o kidney stones and UTIs leading to pyelonephritis. #Right proximal ureteral nephrolithiasis | UTI No leukocytosis; afebrile; LFTs WNL on arrival A/P CT revealed 4 mm calculus in proximal R ureter Urology consult appreciated Ureteroscopy with Dr. Ovalle on 01/29 with R ureter stent placed UA positive for infection on arrival No prior urine culture sensitivities available No sensitivities from UCxs on 12/19/14 or 01/18/18 in our system UCx on 01/29 with pinpoint growth present, re-incubating Continue Ceftriaxone 2000 mg IV q24h Will plan to discharge patient on ciprofloxacin 500 mg p.o. BID, as patient reports she has tolerated this well in the past IV Zofran PRN Scopolamine patch PRN Continue tamsulosin 0.4mg p.o. HS for stent discomfort # Intractable right lower back / flank pain Despite undergoing stone removal and stent placement, patient reports she is still having 7 out of 10 pain throughout the day on 01/29 Refractory to Toradol 10mg p.o. Oxycodone 5mg p.o. helped for approximately 20-30 minutes before pain returned Added on lidocaine patch Scheduled Tylenol 500mg q6h Oxycodone 5-10mg p.o. q6h PRN for breakthrough pain Patient reports she does not feel safe to return home at this time Will plan to keep patient in the hospital overnight on 01/29 for pain control #H/o pyelonephritis | h/o multiple kidney stones Noted; kidney stone at [facility] 12/21/[address] Harry Ureteral stricture noted at that time; resistance at [facility] Unable to obtain pathology report for 2015 stone Discussed case with Dr. Garces While stone composition is still pending, if calcium oxalate, could trial low-dose HCTZ for future prevention #H/o DVT Noticed postoperative blood clot in 2014 following left ankle surgery Underwent hypercoagulable workup which showed heterozygous prothrombin gene mutation Completed 9 months of anticoagulation D-dimers monitored serially and were negative Given prolonged hospital stay, will add on Lovenox 40 mg for DVT PPx #Anemia Mild; Hbg 11.1 on 01/29 No active bleeding Suspect volume dilution after receiving IV fluids in the emergency department/overnight Trend H&H Disposition: Continued stay on MedSurg VTE PPx: Added on lovenox 40mg SQ q24h (due to h/o DVT) Admission and Anticipated Discharge Date Admission Date: January 28, 2025 Supervising Physician Co-Signing Physician Notes Attending Attestation - Chart reviewed, care plan d/w PA Patrick Cotton. I agree w/ the rolon components of his documentation. Sathish Garces MD Subjective Mrs. Prnice reports she is feeling "groggy" following her cystoscopy this morning. She slept okay throughout the night; pain did not awaken her from sleep, but she did have staff coming in to take vitals regularly, which kept her up. No setbacks overnight such as nausea, vomiting, or fevers overnight. Patient is still experiencing 7 out of 10 pain in the right flank and right lower back following her procedure. While the Dilaudid helped last night, she reports that it only lasted for about an hour at a time. She is amenable to trialing oral medications today prior to potential discharge (to see what works for home use). Note: She does have a listed allergy to morphine, but reports she is amenable to taking oxycodone. In regard to medical history, patient does not remember which hospital she had her prior episode of pyelonephritis. No prior urine cultures readily available. ROS: Patient endorses nausea, lightheadedness following procedure, headache, blurry vision (which patient reports she always develops shortly after receiving anesthesia), RLQ abdominal pain, right flank pain, and right LBP. Patient denies fever, chills, night sweats, sore throat, difficulty swallowing, cough, chest pain, chest palpitations, SOB, pleuritic CP, vomiting, diarrhea, blood in the urine, or change in urinary bowel habits. Update at 1600: Patient reports that Toradol 10 mg p.o. did not help alleviate her pain. While she tolerated the oxycodone 5 mg tablets well (no side effects), the pain relief only lasted 20 to 30 minutes before returning. She does report that the lidocaine patch on her right lower back has helped. She expresses a desire to remain in the hospital overnight for pain control, and does not feel safe returning home at this time. Review of Systems Review of Systems: See HPI above Physical Exam Physical Exam: General: Mild distress secondary to right flank and back pain; mother at bedside; non-toxic appearing; cooperative; SpO2 98% on RA HEENT: normocephalic, atraumatic; no scleral icterus; PERRLA; vision and hearing intact Neck: supple; trachea midline Skin: warm, dry without signs of tenting; no cyanosis; no rashes, bruising, lesions, or erythema noted CV: chest wall NTP; RRR; pulses intact and symmetric at radial, DP, and PT Lungs: no acute respiratory distress; symmetrical chest wall expansion; clear breath sounds across all lung glover w/o adventitious sounds; no wheezing ABD: Soft, RLQ and right is TTP; LUQ / LLQ are NTP; no rashes or bruising appreciated on the abdomen or flanks bilaterally BS present; no rebound/guarding; no distention Back: Positive CVA tenderness bilateral MSK: no tics or fasciculations; no edema noted in the LEs b/l, nonerythematous Neuro: A&Ox3; normal mood and affect; fluent speech; no focal deficits; sensation intact and symmetric in the lower extremities bilaterally Results & Data Results & Data Vital Signs (Past 12 Hours) Vital Signs Temp Pulse Pulse Resp BP Pulse Ox O2 Del Method 01/29/25 14:39 36.7 C 73 16 109/70 98 Room Air 01/29/25 12:22 36.6 C 83 16 113/67 99 Room Air 01/29/25 10:25 36.7 C 70 16 97/57 L 98 Room Air 01/29/25 09:55 36.5 C 63 16 113/71 98 Room Air 01/29/25 09:10 52 L 13 104/62 100 Room Air 01/29/25 09:00 36.4 C L 57 L 15 135/69 100 Room Air 01/29/25 08:50 80 14 106/72 100 Room Air 01/29/25 08:40 79 20 122/67 100 Oxymask 01/29/25 08:30 36 C L 61 17 99/57 L 100 Oxymask 07/19/25 07:14 36.6 C 100 H 16 117/69 102 H Room Air O2 Flow Rate 01/29/25 14:39 01/29/25 12:22 01/29/25 10:25 01/29/25 09:55 01/29/25 09:10 01/29/25 09:00 01/29/25 08:50 01/29/25 08:40 6 01/29/25 08:30 6 01/29/25 07:14 PG Care Time/CCT Total # of Minutes Spent Total Time Spent with Patient: Total time spent is greater than 50% in coordination of care (as documented) at patient's floor/unit and/or counseling patient: Coding [place] [address] SUB INP/OBS CARE 3/50MIN Patient Type Established Medical Decision Making High Complexity Diagnoses Kidney stone on right side N20.0 UTI (urinary tract infection) N39.0 Right flank pain R10.9 History of DVT (deep vein thrombosis) Z86.718 Anemia D64.9
[2025-01-29] MEDS: ACETAMINOPHEN 500 MG TAB PO SCH (18:22)
[2025-01-29] MEDS: TAMSULOSIN HCL 0.4 MG CAP PO SCH (19:38)
[2025-01-29] MEDS: ENOXAPARIN INJ 40 MG/0.4 ML SYR SQ SCH (19:38)
[2025-01-29] MEDS: REMOVE LIDODERM PATCH SCH (22:09)
[2025-01-30 03:11] VITALS: O2SAT 99
[2025-01-30 05:46] LABS: Hematocrit (blood only) 33.8 % (37.0-47.0); Hemoglobin 11.0 g/dl (12.0-16.0); Mean Corpuscular Hemoglobin 28.8 pg (25.0-34.0); Mean Corpuscular Volume 88.5 fL (80.0-100.0); Platelet Count 160 K/uL (130-400); RDW Standard Deviation 43.7 fL (36.4-46.3); Red Blood Count 3.82 M/uL (4.20-5.40); White Blood Count 7.72 K/ul (4.8-10.8)
[2025-01-30 05:58] LABS: Anion Gap 3.0 (3-11); Blood Urea Nitrogen 13.0 mg/dl (6-23); Calcium 8.2 mg/dl (8.6-10.3); Carbon Dioxide 25.0 mmol/L (21-32); Chloride 110.0 mmol/L (98-107); Creatinine Clr Calc Pharmacy 99.1 ml/min; Glucose 98.0 mg/dl (70-99(Fasting)); Potassium 3.9 mmol/L (3.5-5.1); Sodium 138.0 mmol/L (136-145)
[2025-01-30] MEDS: POLYETHYLENE (MIRALAX) 17 GM PACK PO PRN (06:58)
[2025-01-30 07:22] VITALS: BP 112/68; PULSE 71; TEMP 98.2
[2025-01-30] MEDS: SCOPOLAMINE 1 MG/72 HR TDSY PATCH TD SCH (09:26)
--- NOTE | 2025-01-30 09:44 | Discharge Summary ---
Discharge Summary Date of Service January 30, 2025 Principal Dx & Hospital Course #1 = Principal Diagnosis (1) Kidney stone on right side: (2) UTI (urinary tract infection): (3) Right flank pain: (4) History of DVT (deep vein thrombosis): (5) Anemia: Plan This patient is a 29-year-old female who presented on 01/28 for acute onset of right lower quadrant abdominal pain radiating around her right flank to her right lower back. H/o kidney stones and UTIs leading to pyelonephritis. Patient had a 4 mm calculus in the proximal right ureter, which was removed through a ureteroscopy with Dr. Ovalle on 01/29. Right ureteral stent placed. Day of discharge 01/30: Patient is happy to report that her right lower back pain and flank pain are controlled on her current pain regimen: Oxycodone 10 mg as needed q8h + scheduled Tylenol 500 mg q6h. she also reports that the lidocaine patches been helping. This morning when she woke up around 7AM, her pain was about an 8 out of 10, but after taking medications she reports it is a 2 out of 10. She reports no side effects from the oxycodone (no SOB or chest tightness). She does feel comfortable with discharge today. She reconfirms that she has taken ciprofloxacin in the past, and reports she tolerates it well. No connective tissue disorders. No overnight events such as fevers, nausea, or vomiting. No burning with urination, but patient does endorse "lower back pain" after urinating, and that while her bladder feels full, she tends to "trickle" when urinating. She also reports that her urine is dark, and believes there might be some blood in it. 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 She is not allowed to have narcotics in her system when she returns to work. Patient works through Friday, and tends to have Friday/Friday off. Will plan to fill out a work release form for the patient, and she may require separate ICE form explaining why she has narcotics in her system. ROS: Patient endorses chills overnight, grogginess, dark urine (potentially blood in urine), ongoing right flank/lower back pain, and lower back pain after urinating. Patient denies fever, night sweats, dizziness/lightheadedness, chest pain, chest palpitations, pleuritic CP, SOB, cough, nausea, vomiting, diarrhea, or burning with urination. #Right proximal ureteral nephrolithiasis | UTI No leukocytosis; afebrile; LFTs WNL on arrival A/P CT revealed 4 mm calculus in proximal R ureter Urology consult appreciated Ureteroscopy with Dr. Ovalle on 01/29 with R ureter stent placed UA positive for infection on arrival No prior urine culture sensitivities available No sensitivities from UCxs on 12/19/14 or 01/18/18 in our system UCx on 01/29 and 01/30 with pinpoint growth present, re-incubating Patient received ceftriaxone 2000 mg IV x 3 doses in the hospital Will plan to discharge patient on ciprofloxacin 500 mg p.o. BID x 4 days, as patient reports she has tolerated this well antibiotic in the past IV Zofran PRN inpatient Scopolamine patch PRN inpatient Continue tamsulosin 0.4mg p.o. HS upon discharge for stent discomfort # Intractable right lower back / flank pain Refractory to Toradol 10 mg p.o. Reported improvement on 01/30 Lidocaine patch daily Recommend scheduled Tylenol 500mg q6h Inform patient that max daily dose for Tylenol would be 3000 mg daily Patient is still requiring oxycodone 10mg p.o. q6h for breakthrough pain at time of discharge We will plan to send patient home on oxycodone 5 mg x 24 tablets, which should roughly translate to 3 additional days of oxycodone if she takes 10 mg every 6 hours #H/o pyelonephritis | h/o multiple kidney stones Noted; kidney stone at [place] 12/21/[address] Harry Ureteral stricture noted at that time; resistance at [facility] Unable to obtain pathology report for 2015 stone Discussed case with Dr. Garces While stone composition is still pending, if calcium oxalate, could trial low-dose HCTZ for future prevention Given patient's blood pressure has been fairly soft in hospital, will defer HCTZ at this time #H/o DVT Noticed postoperative blood clot in 2014 following left ankle surgery Underwent hypercoagulable workup which showed heterozygous prothrombin gene mutation Completed 9 months of anticoagulation D-dimers monitored serially and were negative Given prolonged hospital stay, given Lovenox 40 mg SQ x 1 for DVT prophylaxis #Anemia Mild; stable; Hbg 11.1 on 01/29 and 11.0 on 01/30 No active bleeding appreciated, but patient does endorse hematuria following stent procedure Suspect combination of volume dilution from IV fluid + hematuria Recommend recheck H&H prior to transitional care appointment PCP Disposition: Discharge home Notes For Next Care Provider Mrs. Prince was hospitalized from 01/28 - 01/30 for a 4 mm right ureteral kidney stone. She underwent a ureteroscopy with Dr. Ovalle on 01/29 and had a right ureteral stent placed. UA with 4+ bacteria on arrival. She received ceftriaxone 2000 mg IV x 3 total doses in the hospital. New prescriptions on discharge: - Flomax 0.4 mg tablets nightly for stent discomfort - Ciprofloxacin 500mg tablets twice daily x 4 days to complete 7-day course of antibiotics - Oxycodone 5-10mg tablet to be taken every 6 hours as needed for breakthrough pain Note: At time of discharge, patient is still currently requiring 2 tablets (10 mg) every 6 hours A total of 24 tablets has been dispensed, which should roughly translate to 3 additional days of pain control Patient notes that she works as a light armored vehicle officer at a [employer], and will need to be narcotic free prior to return to work. We have provided a work e xcuse order for her to return to work on 02/03, and she was instructed to reach out if she has any issues upon return to work. She was advised to avoid heavy lifting for 1 to 2 weeks, and gradually increase activity as tolerated. Urine culture drawn on 01/28 without growth to date. Please plan for PCP follow-up within 1 to 2 weeks for transitional care. It should also be noted that patient's hemoglobin level was slightly low, but stable, at ~11.0 throughout her hospital course. Please plan to have an H&H or CBC drawn prior to this transitional care appointment. Patient will also require follow-up with urology for stent removal. Admission HPI Per Admitting Provider Mrs. Prince is a 29-year-old female with PMH of kidney stones, pyelonephritis, cholecystectomy, bronchitis, DVT and factor II deficiency. She presented on 01/28 after acute onset of RLQ abdominal/flank pain while she was at work. 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 Over a 5-minute period, it went from a 2/10 to a 10/10, and she was doubled over in pain. The pain took her breath away. She reports taking deep breaths made it worse. Patient did not take any pain medicine prior to coming to hospital. She reports her pain is 4/10 after receiving Dilaudid in the emergency department. Pain is exacerbated with movement, pressure, and palpation. Patient did not have anything to eat this morning. Patient does not take medicine on daily basis. She did take gabapentin last night for her sciatica; she takes 300 mg PRN. Initially, patient reports this felt different than her prior kidney stones, because she has never had pain in the right lower quadrant like this. She does have history of gallbladder removal. History of UTIs and pyelonephritis. She denies burning with urination or dysuria, but does report that she developed a suprapubic c ramping after using the restroom in the ED. While she has a listed ampicillin allergy, she denies that it is a true penicillin allergy, and reports she has done well taking penicillins in the past. Other urologic history includes a stone getting stuck in her urethra, and "killing off" part of her urethra. Patient denies smoking, tobacco use, or recent alcohol use. Patient does have a history of kidney stones, but reports this feels completely different. ED course: Hydromorphone 0.5 mg IV x 3 Toradol 10 mg IV NSS 500 mL IV Ceftriaxone 2000 mg IV Zofran 4 mg IV ROS: Patient endorses chills, sweating, lightheadedness, JOHNSON, pleuritic CP (resolved), RLQ / right flank pain, nausea, vomiting, and suprapubic cramping after urination. Patient denies fever, SOB at rest, chest pain, chest palpitations, cough, diarrhea, burning with urination, blood in the urine/stool, dysuria, saddle anesthesia, or numbness/tingling in the legs. Admission Exam Per Admitting Provider General: no acute distress; pleasant affect; mother at bedside; non-toxic appearing; cooperative; SpO2 100% on RA HEENT: normocephalic, atraumatic; no scleral icterus; PERRLA; vision and hearing grossly intact Neck: supple; no lymphadenopathy; trachea midline Skin: warm, dry without signs of tenting; no cyanosis; no rashes, bruising, lesions, or erythema noted CV: chest wall NTP; RRR; S1/S2 normal; no murmurs/rubs/gallops; pulses intact and symmetric at radial, DP, and PT Lungs: no acute respiratory distress; symmetrical chest wall expansion; clear breath sounds across all lung glover w/o adventitious sounds; no wheezing ABD: Soft, right lower quadrant is TTP; RUQ is mildly TTP (she describes it as "pressure" or discomfort); LUQ and LLQ are NTP); no rashes or bruising appreciated on the abdomen or flanks bilaterally BS present; no rebound/guarding; no distention Back: Positive right-sided CVA tenderness MSK: no tics or fasciculations; no edema noted in the LEs b/l, nonerythematous Neuro: A&Ox3; normal mood and affect; fluent speech; no focal deficits; sensation intact and symmetric in the lower extremities bilaterally Discharge Exam General: Resting peacefully in bed; no acute distress; pleasant affect; non- toxic appearing; cooperative; SpO2 99% on RA HEENT: normocephalic, atraumatic; PERRLA; vision and hearing intact Neck: supple; trachea midline Skin: warm, dry without signs of tenting; no cyanosis; no rashes, bruising, lesions, or erythema noted CV: chest wall NTP; RRR; pulses intact and symmetric at radial, DP, and PT Lungs: no acute respiratory distress; symmetrical chest wall expansion; clear breath sounds across all lung glover w/o adventitious sounds; no wheezing ABD: Soft, RLQ and right flank are still TTP; LUQ / LLQ are NTP; no rashes or bruising appreciated on the abdomen or flanks bilaterally BS present; no rebound/guarding; no distention Back: Positive right sided CVA tenderness MSK: no tics or fasciculations; no edema noted in the LEs b/l, nonerythematous Neuro: A&Ox3; normal mood and affect; fluent speech; no focal deficits; sensation intact and symmetric in the lower extremities bilaterally Discharge Plan Discharge Items Patient Disposition: Home - Self-Care Reason For Visit: RIGHT-SIDED KIDNEY STONE Discharge Diagnosis: Right-sided kidney stone, UTI Condition on Discharge: Fair Activity: Resume your previous activity Activity Comment: Gradually resume previous activity as tolerated Lifting: No more than 25 pounds Non-emergency contact: Primary Care Provider and Urologist Call non-emergency contact if: you have any medication questions, your symptoms worsen, your pain is not controlled, your pain is worsening, your pain is concerning for you and you have a fever Follow-up/Referrals: Dimas Ovalle DO [Physician] - Lalitha Florez CRNP [Primary Care Provider] - Diet: Regular Addtl Attending Provider Instructions: You were hospitalized at [facility] from 01/28 -01/30 for acute onset of right lower quadrant abdominal pain with radiation to the right lower back. Imaging of your abdomen and pelvis on arrival revealed a 4 mm kidney stone lodged in the proximal right ureter. A procedure was performed on 01/29/[address] Ovalle called a cystoscopy/ureteroscopy, and a stent was placed in the right ureter. Throughout your hospital stay, your vitals remained stable. While your urine came back infected, suggestive of a UTI versus infected kidney stone, you did not have an elevated white blood cell count to indicate signs of severe infection. You were treated with a IV antibiotic called ceftriaxone, and despite a listed penicillin allergy, reported no side effects from this medication. For these reasons, we feel that you are safe to be discharged home on oral antibiotics and oral pain control medications. New prescriptions: - Flomax 0.4 mg tablets nightly - Oxycodone 5mg tablets Take 1-2 tablets every 8 hours as needed for pain control (18 total tablets dispensed) Do not exceed a total of 30mg in a 24h period - Ciprofloxacin 500mg tablets twice daily x 4 days Your urine culture is currently pending at time of discharge. We plan to send you home on an antibiotic called Ciprofloxacin, which you mentioned you have tolerated well in the past. Please complete the full course of this antibiotic even if you begin to feel better: take one tablet in the morning, and one table at night, for the next four days. For pain control, we recommend extra-strength acetaminophen (Tylenol) 500 mg tablets every 6 hours for pain. Max daily Tylenol dosage: 3000 mg. You can also rotate in oxycodone 5-10 mg every 8 hours as needed for breakthrough pain. Note this medication is an opioid (please do not operate heavy machinery or drive vehicles when taking). Side effects of opioids may include drowsiness, respiratory depression, upset stomach, and constipation. Lidocaine 4% patches can be obtained [id number], if you feel that these were helpful for pain control during your time in the hospital. We are also sending you home on a prescription for tamsulosin (Flomax) 0.4 mg tablets to be taken nightly, which should help with stent discomfort. It is recommended that you drink plenty of fluids to help flush out the urinary tract. Please plan to follow-up with your PCP in the next 1 to 2 weeks for a transitional care appointment. Prior to this appointment, we recommend that you have blood work drawn to assess for your hemoglobin level, which was slightly low, but stable in the hospital (Hgb 11.0 at time of discharge) Please also plan to follow-up with urology for eventual stent removal. If you develop any new or worsening symptoms, such as fever, intractable right- sided flank pain, nausea, vomiting, chest pain, or trouble breathing, please return to the emergency department immediately. It was a pleasure taking care of you. Please reach out with any questions or concerns. Sincerely, The Hospital Medicine team at [facility] Pending Studies at Discharge: Yes Studies:: Urine culture taken on 01/28 Stand-Alone Forms: [facility], Pain - Opioid Pain Management, Work/School Release Medications and DC Order Prescriptions: New tamsulosin 0.4 mg Capsule 0.4 mg PO HS Qty: 30 0RF Rx Instructions: Take 1 capsule at night ciprofloxacin HCl 500 mg tablet 500 mg PO BID Qty: 8 0RF Rx Instructions: Take 1 tablet by mouth twice daily x 4 days to complete course of antibiotics for urinary tract infection oxycodone 5 mg Tablet 10 mg PO Q8H MDD 30mg PRN (Reason: severe pain (scale score 7-10)) Qty: 18 0RF Rx Instructions: Take 1 to 2 tablets by mouth every 8 hours as needed for breakthrough pain Continued Mirena 21 mcg/24hr (up to 8 yrs) 52 mg Intrauterine Device 21 mcg intrauterine DIRECTED propranolol 20 mg Tablet 20 mg PO DAILY Discharge Orders: Discharge Order (Routine); Ordered 01/30/25 Ordered By: Patrick Robles/Other Patient Handouts: Having a Ureteral Stent, Pain Management Opioids Admission Data Admit Date/Time: 01/29/25 16:12 Attending Provider: Sathish Garces Admit Provider: Aidan Gonzalez Primary Care Provider: Lalitha Florez Other Providers: Aidan Gonzalez; Dimas Ovalle Other Interventions: Discharge Summary Assessment (RN) Last Done: 01/30/25 10:41 Hospital Stay Data Consultations 01/28/25 13:42 ED Decision to Admit Stat 01/28/25 13:49 Consult Urology Routine Procedures Performed Operation Date: 01/29/25 07:30 Actual Procedures p Cystoscopy, Right Ureteral Stent Placement,Retrograde Pyelogram, Stone basket Extraction(Right) - Dimas Ovalle, Diagnostic Imagining Performed 01/28/25 10:27 CT abd pelvis IV con only Stat 01/29/25 07:30 FL retrograde includes kub Routine Pending Results Patient Have Any Pending Studies at Discharge: Yes Discharge Instructions Given to Patient (Per Discharging Provider) You were hospitalized at [facility] from 01/28 -01/30 for acute onset of right lower quadrant abdominal pain with radiation to the right lower back. Imaging of your abdomen and pelvis on arrival revealed a 4 mm kidney stone lodged in the proximal right ureter. A procedure was performed on 01/29/[address] Ovalle called a cystoscopy/ureteroscopy, and a stent was placed in the right ureter. Throughout your hospital stay, your vitals remained stable. While your urine came back infected, suggestive of a UTI versus infected kidney stone, you did not have an elevated white blood cell count to indicate signs of severe infection. You were treated with a IV antibiotic called ceftriaxone, and despite a listed penicillin allergy, reported no side effects from this medication. For these reasons, we feel that you are safe to be discharged home on oral antibiotics and oral pain control medications. New prescriptions: - Flomax 0.4 mg tablets nightly - Oxycodone 5mg tablets Take 1-2 tablets every 8 hours as needed for pain control (18 total tablets dispensed) Do not exceed a total of 30mg in a 24h period - Ciprofloxacin 500mg tablets twice daily x 4 days Your urine culture is currently pending at time of discharge. We plan to send you home on an antibiotic called Ciprofloxacin, which you mentioned you have tolerated well in the past. Please complete the full course of this antibiotic even if you begin to feel better: take one tablet in the morning, and one table at night, for the next four days. For pain control, we recommend extra-strength acetaminophen (Tylenol) 500 mg tablets every 6 hours for pain. Max daily Tylenol dosage: 3000 mg. You can also rotate in oxycodone 5-10 mg every 8 hours as needed for breakthrough pain. Note this medication is an opioid (please do not operate heavy machinery or drive vehicles when taking). Side effects of opioids may include drowsiness, respiratory depression, upset stomach, and constipation. Lidocaine 4% patches can be obtained [id number], if you feel that these were helpful for pain control during your time in the hospital. We are also sending you home on a prescription for tamsulosin (Flomax) 0.4 mg tablets to be taken nightly, which should help with stent discomfort. It is recommended that you drink plenty of fluids to help flush out the urinary tract. Please plan to follow-up with your PCP in the next 1 to 2 weeks for a transitional care appointment. Prior to this appointment, we recommend that you have blood work drawn to assess for your hemoglobin level, which was slightly low, but stable in the hospital (Hgb 11.0 at time of discharge) Please also plan to follow-up with urology for eventual stent removal. If you develop any new or worsening symptoms, such as fever, intractable right- sided flank pain, nausea, vomiting, chest pain, or trouble breathing, please return to the emergency department immediately. It was a pleasure taking care of you. Please reach out with any questions or concerns. Sincerely, The Hospital Medicine team at [facility] Total Time Total Time Spent Total Time Spent (In Minutes): 35 Coding [place] [address] INP/OBS DISCH >30 MIN Patient Type Established Medical Decision Making Moderate Complexity Diagnoses Kidney stone on right side N20.0 UTI (urinary tract infection) N39.0 Right flank pain R10.9 History of DVT (deep vein thrombosis) Z86.718 Anemia D64.9
[2025-01-30] MEDS: cefTRIAXone SODIUM 2,000 MG/50 ML BAG IV SCH (11:12)
[2025-01-30] MEDS ORDERED: CHECK SCOPOLAMINE PATCH PLACEMENT SCH (16:00)
[2025-01-31] MEDS ORDERED: REMOVE TRANSDERM-SCOP PATCH ONE (06:00)
--- NOTE | 2025-01-31 08:30 | Fluoroscopy Report ---
FL retrograde includes kub CLINICAL HISTORY: RIGHT STENT PLACEMENT COMPARISON STUDY: None FLUOROSCOPY TIME: 35 seconds FLUOROSCOPY IMAGES: 4 EXPOSURE DOSE: 6 mGy FINDINGS: Fluoroscopy was provided for urologic procedure. IMPRESSION: Intraoperative fluoroscopy. ACT 112: Negative or not required by law. Electronically signed by: Ja Rossi M.D. 01/31/2025 8:29 AM
--- NOTE | 2025-02-01 14:20 | Coding Query ---
ANEMIA To promote full compliance with coding requirements relating to patient care, physician participation is requested in all cases of emergency detail driver uncertainty. Please assist us with the question(s) below: Coding Question(s): The record reflects the following clinical findings: The Discharge Summary documents regarding Anemia, "#Anemia Mild; stable; Hbg 11.1 on 01/29 and 11.0 on 01/30 No active bleeding appreciated, but patient does endorse hematuria following stent procedure Suspect combination of volume dilution from IV fluid + hematuria Recommend recheck H&H prior to transitional care appointment PCP". If these findings are indicative of anemia, please specify the known or suspected type by placing an "X" within the parenthesis (x). If other, please document type. Examples are: ( ) Acute blood loss anemia ( ) Acute Postoperative blood loss anemia (x ) Acute postoperative anemia due to dilutional fluids ( ) Chronic blood loss anemia ( ) Anemia of chronic disease ( ) Aplastic anemia ( ) Anemia due to renal disease ( ) Anemia in neoplastic disease ( ) Iron deficient anemia (x ) Anemia, unspecified or other ( ) Other: (please specify) Thank you Sachi DOLAN
[2025-02-02] MEDS ORDERED: REMOVE TRANSDERM-SCOP PATCH SCH (09:00)
[2025-02-06 15:18] LABS: Source URETER STONE
== END 2025-01-30 12:14 | disposition home or self-care (01) | DRG 661 ==
LOC: ED 10:06 → 3E 10:06 → SUATTDRO 14:29 → 3E 15:46

== ENCOUNTER 2025-02-04 22:08 | Observation (INO) ==
--- NOTE | 2025-02-04 22:20 | Emergency Department Note ---
Impression & Plan Right flank pain ED Provider Note CHIEF COMPLAINT: Right flank pain HISTORY OF PRESENTING ILLNESS: This 29-year-old female patient presents to the emergency department with her [id number] for evaluation of right flank pain radiating to the RLQ. The patient states that she had surgery by Dr. Ovalle to remove 9 kidney stones with stent placement. The patient states that she saw Dr. Ovalle today and had the stent removed. She is now having severe right flank pain, chills, and is unable to tolerate the pain at home. She states that she called urology and was advised to come to the ER. The pain started at 7:30 pm. She took Oxycodone 10 mg with no improvement of her symptoms. She called urology and they advised her to take another Oxycodone 5 mg, but that did not improve her symptoms either. She is also having a lot of nausea, but no vomiting. She denies any fevers, but has chills. Per hospital discharge summary on 01/30/2025, the patient had a 4 mm calculus in the proximal right ureter which was removed through ureteroscopy by Dr. Ovalle on 01/29/2025. The patient also had numerous small stones in the renal pelvis which were also removed. A right ureteral stent was placed at that time. The patient was discharged home with oxycodone and Flomax. The patient received IV Rocephin as an inpatient and was discharged home on ciprofloxacin 500 mg twice a day for 4 additional days. I reviewed the patient's urology office visit note from today where the patient successfully had her stent removed. REVIEW OF SYSTEMS: See HPI for pertinent positives and pertinent negatives. ALLERGIES: See below MEDICATIONS: See below PAST MEDICAL HISTORY: See below PHYSICAL EXAM: VITALS: Vitals are noted on the nurse's note and reviewed by myself. GENERAL: Non toxic, in no acute distress, non-diaphoretic. SKIN: Capillary refill <2 sec. EYES: PERRLA. EOMI. Conjunctivae without injection, sclerae without icterus. NOSE: Patent without discharge. MOUTH: Mucous membranes moist. Uvula midline. Airway patent. NECK: Supple without nuchal rigidity. HEART: Regular rate and rhythm without murmurs gallops or rubs. LUNGS: Clear to auscultation bilaterally without wheezes, rales or rhonchi. No retractions or accessory muscle use. ABDOMEN: Positive bowel sounds x 4. Normal tympanic percussion. Soft, mildly tender to palpation over the right flank and right lower quadrant. No masses or hepatosplenomegaly. Gardiner sign negative. No CVA tenderness. No guarding, rigidity, or rebound tenderness. MUSCULOSKELETAL: No gross musculoskeletal defects. NEURO: Patient was alert and oriented. No focal neurological deficits. DIFFERENTIAL DIAGNOSIS: Differential diagnosis includes hepatitis, pancreatitis, cholecystitis, cholelithiasis, appendicitis, kidney stone, pyelonephritis, UTI, gastritis, gastroenteritis, mesenteric adenitis, obstruction, constipation, hernia, abdominal abscess, perforation, diverticulitis, IBD, ischemic colitis, abdominal aortic aneurysm, , ectopic , ovarian cyst, ovarian torsion, acute salpingitis, or others. ED COURSE AND MEDICAL DECISION MAKING: MEDICATIONS GIVEN: 1 L normal saline solution bolus. Toradol 10 mg IV, Flomax 0.4 mg po, Zofran 4 mg IV x 2, Dilaudid 0.5 mg IV, and Tylenol 1000 mg IV. Rocephin 2 g IV. INTERPRETATION OF LABS: I interpreted the labs with full lab results as below in the lab section of this note. Laboratory results pertinent to the emergent complaint are discussed in the MDM section below. The patient was advised to follow up with their PCP and/or specialist(s) for further outpatient monitoring and management of any abnormal results. INTERPRETATION OF IMAGING: Imaging studies were interpreted by myself and read by radiology as per the imaging section of this note. The patient was advised to follow up with their PCP and/or specialist(s) for further outpatient management of any non-emergent abnormal findings. CT scan of the abdomen and pelvis with IV contrast showed interval removal of the right ureteral stent. Increased mild right hydronephrosis and proximal hydroureter with mild enhancement of the linda of the renal pelvis and ureter suggesting inflammation/infection. No right renal or ureteral calculus. The bladder is partially contracted with minimal nonspecific wall thickening. EXTERNAL RECORDS REVIEWED: I reviewed the patient's most recent admission notes as well as her urology office visit note from earlier today. CONSULTATIONS: Austin Tolentino PA-C of urology. On-call hospitalist [facility] SUMMARY: I examined the patient. The patient was recently admitted for a 4 mm calculus in the proximal right ureter which was removed through ureteroscopy by Dr. Ovalle on 01/29/2025. The patient also had numerous small stones in the renal pelvis which were also removed. A right ureteral stent was placed at that time and the patient completed a course of ciprofloxacin. The patient saw urology this morning and had her stent removed in the office. The patient states that she had pain since having the stent removed today, but at 7:30 PM tonight the pain got significantly worse. She took oxycodone 10 mg with no improvement of her symptoms. She contacted urology and was advised to take another oxycodone 5 mg, but she still had continued pain that she could not tolerate at home. An IV lock was placed and labs were drawn. The patient was hydrated with 1 L normal saline solution bolus. She was initially given Toradol 10 mg IV, Flomax 0.4 mg p.o., Zofran 4 mg IV, and Dilaudid 0.5 mg IV. She had additional pain and was given Tylenol 1000 mg IV with an additional Zofran 4 mg IV later in her ER stay. White blood cell count normal at 9.06. Hemoglobin normal at 12.6. Platelet count normal at 268. Glucose 120, but CMP otherwise without concerning abnormalities. The patient's urinalysis appears more contaminated rather than infected with urine culture pending. Urine test negative. CT scan of the abdomen and pelvis with IV contrast showed interval removal of the right ureteral stent. Increased mild right hydronephrosis and proximal hydroureter with mild enhancement of the linda of the renal pelvis and ureter suggesting inflammation/infection. No right renal or ureteral calculus. The bladder is partially contracted with minimal nonspecific wall thickening. I had already discussed the case with the on-call GILDA for urology prior to results of the CT scan imaging as they knew the patient had been referred to the ER. The plan was for the patient to be discharged home if the CT scan did not show any significant abnormalities and her pain was able to be controlled. Otherwise the patient could be admitted for pain control. I discussed the findings with the patient. I discussed that the CT scan findings may just be secondary to the inflammation from removal of the stent. However, the patient was concerned for infection. I discussed discharge with a course of antibiotics pending urine culture results and outpatient follow-up with urology. However, the patient does not feel that she can be discharged home. The patient states that she has had a lot of trouble controlling her pain at home despite stronger pain medications. The patient is concerned that her pain will return again and she will end up back in the ER. The patient would like to be admitted for pain control and observation. The patient was given a dose of Rocephin 2 g IV to cover for possible infection. I spoke with the on-call hospitalist who agreed to admit the patient for further evaluation and treatment. Please refer to their dictation for further details. The patient's care was transferred in stable condition. DIAGNOSIS: Right flank and right lower quadrant abdominal pain Status post ureteral stent removal Past Med/Surg History Problem List (Updated 02/05/25 @ 03:16 by Amanda Zamarripa PA-C) Ureteral stent present (Acute) Edema (Acute) Anemia Right flank pain (Acute) UTI (urinary tract infection) Kidney stone on right side (Acute) Person under investigation for COVID-19 (Acute) S/P surgical manipulation of ankle joint (Acute) Constipation (Acute 12/18/14) DVT (deep venous thrombosis) (Acute 10/19/13) DVT (deep venous thrombosis) (Acute) Dehydration (Acute) Flank pain (Acute) Intractable nausea and vomiting (Acute) Leg pain, left (Acute) Nephrolithiasis (Acute) Pyelonephritis (Acute) Renal colic (Acute) Tachycardia (Acute 10/20/13) Encounter for pre-operative examination Infected cat bite of hand Elevated blood pressure reading Asthma History of DVT (deep vein thrombosis) Factor II deficiency Migraine Tenosynovitis of hand (Acute) Cellulitis of hand, right (Acute) Cat bite (Acute) Failure of outpatient treatment (Acute) Encounter for pre-operative examination DVT prophylaxis Medical History Prediabetes Cellulitis of left leg current diagnosis Morbid obesity with BMI of 45.0-49.9, adult History of anesthesia reaction had "horrible chest pain upon waking up from tonsillectomy 05/2018 gave me something and I was ok" Nausea and vomiting after administration of anesthetic agent Kidney stones Deep vein thrombosis 2014--left leg Factor II deficiency Migraine Cardiac murmur Sleep apnea no device Asthma inhaler prn Surgical History History of incision and drainage right ring finger 06/19/19 History of esophagogastroduodenoscopy (EGD) Status post wrist surgery right History of ankle joint replacement x2 left Status post cystoscopy with ureteral stent placement History of section History of cholecystectomy History of wisdom tooth extraction History of tooth extraction all top teeth History of tonsillectomy Family History Mother Family history of reaction to anesthesia nausea/vomiting Grandfather (Maternal) Family history of diabetes mellitus Social History Smoking Status: Never smoker Second Hand Exposure: No; Do You Dip or Chew Tobacco: No; Hx Alcohol Use: No Hx Substance Use: No Preferred Language: [place] Communication Ability: Effective 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 Supervisor Required: No Beliefs That Will Affect Care: None Current Living Situation: Spouse Current Living Situation Comment: Lives with son Feels Safe at Home: Yes Assistive Devices: None Allergies Allergies Allergy/AdvReac Type Severity Reaction Status Date / Time morphine Allergy Severe SOB, CHEST Verified 02/04/25 23:08 PAIN, NAUSEA ampicillin [From Unasyn] Allergy Intermediate HIVES, Verified 02/04/25 23:08 REDDENED, SUPER ITCHY RASH house dust Allergy Intermediate Itchiness Verified 02/04/25 23:08 meperidine Allergy Intermediate HIVES Verified 02/04/25 23:08 promethazine [From Phenergan] Allergy Intermediate Hives Verified 02/04/25 23:08 sulbactam [From Unasyn] Allergy Intermediate HIVES, Verified 02/04/25 23:08 REDDENED, SUPER ITCHY RASH vancomycin AdvReac Intermediate Kidney Verified 02/04/25 23:08 function EFFECTED Home Meds Home Medications Medication Instructions Recorded Confirmed levonorgestrel 21 mcg/24 hr (up to 21 mcg intrauterine CONTINOUS 01/28/25 02/04/25 8 years) 52 mg intrauterine device (Mirena) propranolol 20 mg tablet 20 mg PO DAILY 01/28/25 02/04/25 Previous Rx's Medication Instructions Recorded oxycodone 5 mg tablet 10 mg (2 x 5 mg) PO Q8H PRN severe 01/30/25 pain (scale score 7-10) #18 tabs tamsulosin 0.4 mg capsule 0.4 mg PO HS Ureteral stent 01/30/25 discomfort #30 caps ondansetron 8 mg disintegrating 8 mg PO Q8H PRN nausea and 02/03/25 tablet vomiting #30 tabs cefdinir 300 mg capsule 300 mg PO BID #6 caps 02/06/25 oxybutynin chloride 5 mg tablet 5 mg PO BID #60 tabs 02/06/25 Results & Data (ED) Vital Signs Vital Signs - 24 hr 02/04/25 22:10 02/04/25 22:28 02/04/25 22:56 Temperature 36.8 C Temperature Source Oral Pulse Rate 78 76 Pulse Rate [Apical] Pulse Rate from SpO2 Sensor Respiratory Rate 18 Respiratory Effort / Characteristics Non-Labored Spontaneous Respiratory Depth Normal Blood Pressure 116/72 Blood Pressure [Right Arm] Blood Pressure Mean 86 Blood Pressure Mean [Right Arm] Pulse Oximetry 100 99 Oxygen Delivery Method Room Air Room Air Sepsis Recent Fever Within 48 Hours No Sepsis New/Unexplained Change in Mental Status No Sepsis Action Taken by Nursing No Action Required 02/04/25 23:00 02/05/25 00:00 02/05/25 01:00 Temperature Temperature Source Pulse Rate 79 78 Pulse Rate [Apical] 69 Pulse Rate from SpO2 Sensor 76 Respiratory Rate 13 16 18 Respiratory Effort / Characteristics Respiratory Depth Blood Pressure 121/64 104/63 Blood Pressure [Right Arm] 114/61 Blood Pressure Mean 83 77 Blood Pressure Mean [Right Arm] 78 Pulse Oximetry 100 94 100 Oxygen Delivery Method Room Air Room Air Sepsis Recent Fever Within 48 Hours Sepsis New/Unexplained Change in Mental Status Sepsis Action Taken by Nursing 02/05/25 02:00 02/05/25 02:52 Temperature Temperature Source Pulse Rate 85 Pulse Rate [Apical] 79 Pulse Rate from SpO2 Sensor Respiratory Rate 18 18 Respiratory Effort / Characteristics Respiratory Depth Blood Pressure 100/72 Blood Pressure [Right Arm] 114/74 Blood Pressure Mean 81 Blood Pressure Mean [Right Arm] 87 Pulse Oximetry 100 98 Oxygen Delivery Method Room Air Sepsis Recent Fever Within 48 Hours Sepsis New/Unexplained Change in Mental Status Sepsis Action Taken by Nursing Laboratory Data 02/06/25 06:30 02/06/25 06:30 Lab Results 02/04/25 Range/Units 22:38 WBC 9.06 (4.8-10.8) K/ul RBC 4.38 (4.20-5.40) M/uL Hgb 12.6 (12.0-16.0) g/dl Hct 37.5 (37.0-47.0) % MCV 85.6 (80.0-100.0) fL MCH 28.8 (25.0-34.0) pg MCHC 33.6 (32.0-36.0) g/dL RDW Std Deviation 41.5 (36.4-46.3) fL RDW Coeff of Jason 13.3 (11.5-14.5) % Plt Count 268 (130-400) K/uL MPV 9.6 (9.4-12.4) fL Immature Gran % (Auto) 0.6 % Neut % (Auto) 74.4 % Lymph % (Auto) 16.0 % [place]aver % (Auto) 7.8 % Eos % (Auto) 0.9 % Baso % (Auto) 0.3 % Neut # (Auto) 6.74 H (1.40-6.50) K/uL Lymph # (Auto) 1.45 (1.20-3.40) K/uL [place]aver # (Auto) 0.71 H (0.11-0.59) K/uL Eos # (Auto) 0.08 (0.00-0.50) K/uL Baso # (Auto) 0.03 (0.00-0.20) K/uL Immature Gran # (Auto) 0.05 (0.01-0.20) K/uL Sodium 139 (136-145) mmol/L Potassium 3.7 (3.5-5.1) mmol/L Chloride 107 (98-107) mmol/L Carbon Dioxide 25 (21-32) mmol/L Anion Gap 7 (3-11) BUN 12 (6-23) mg/dl Creatinine 0.82 (0.6-1.2) mg/dl Est Cr Clr Drug Dosing 84.8 ml/min eGFR 98.62 BUN/Creatinine Ratio 14.6 (10-20) Glucose 120 H (70-99(Fasting)) mg/dl Calcium 9.0 (8.6-10.3) mg/dl Magnesium 1.9 (1.7-2.4) mg/dl Total Bilirubin 0.5 (0.2-1.0) mg/dl AST 18 (13-39) U/L ALT 21 (7-52) U/L Alkaline Phosphatase 59 (34-104) U/L Total Protein 6.6 (6.0-8.3) gm/dl Albumin 2.9 L (3.4-5.0) gm/dl Globulin 3.7 (2.5-4.0) gm/dl Albumin/Globulin Ratio 0.8 L (0.9-2) Lipase 28 (11-82) U/L Urine Color Yellow Urine Appearance Cloudy A (Clear) Urine pH 5.5 (4.5-7.5) Ur Specific [place] 1.021 (1.000-1.030) Urine Protein 3+ H (Negative) Urine Glucose (UA) Negative (Negative) Urine Ketones Trace H (Negative) Urine Blood 3+ H (Negative) Urine Nitrite Negative (Negative) Urine Bilirubin Negative (Negative) Urine Urobilinogen Negative (Negative) Ur Leukocyte Esterase 1+ H (Negative) Urine WBC (Auto) 21-50 H (0-5) /hpf Urine RBC (Auto) >20 H (0-2) /hpf U Hyaline Cast (Auto) 3-5 H (0-2) /lpf U Epithel Cells (Auto) 11-20 H (0-2) /hpf Urine Bacteria (Auto) None Seen (None Seen) Urine Test Negative (Negative) Urine Comment Administered Medications Discontinued Medications Acetaminophen (Acetaminophen 500 Mg Tab) 1,000 mg PO Q8H SHANNON Stop: 03/07/25 09:59 Last Admin: 02/06/25 09:03 Dose: 1,000 mg Documented By: Admin: 02/06/25 01:04 Dose: 1,000 mg Documented By: Admin: 02/05/25 17:18 Dose: 1,000 mg Documented By: Admin: 02/05/25 10:59 Dose: 1,000 mg Documented By: ZIA Hydromorphone HCl (Hydromorphone Inj 0.5 Mg/0.5 Ml Syr) 0.5 mg IV NOW STA Stop: 02/04/25 22:29 Last Admin: 02/04/25 22:43 Dose: 0.5 mg Documented By: SVETLANA Hydromorphone HCl (Hydromorphone Inj 0.5 Mg/0.5 Ml Syr) 0.5 mg IV Q3H PRN PRN Reason: Pain (6,7,8,9,10) Stop: 02/19/25 03:11 Last Admin: 02/05/25 05:56 Dose: 0.5 mg Documented By: JUNITO Sodium Chloride (Nss) 1,000 mls @ 999 mls/hr IV .Q1H1M ONE Stop: 02/04/25 23:28 Last Infusion: 02/05/25 00:15 Dose: Infused Documented By: Admin: 02/04/25 22:44 Dose: 999 mls/hr Documented By: SVETLANA Ceftriaxone Sodium (Rocephin) 2,000 mg in 50 mls @ 100 mls/hr IV NOW STA Stop: 02/05/25 02:21 Last Infusion: 02/05/25 03:10 Dose: Infused Documented By: JEAN CARLOS Admin: 02/05/25 02:19 Dose: 100 mls/hr Documented By: ERMELINDA Acetaminophen (Ofirmev) 1,000 mg in 100 mls @ 400 mls/hr IV NOW STA Stop: 02/05/25 02:06 Last Infusion: 02/05/25 02:14 Dose: Infused Documented By: Admin: 02/05/25 01:59 Dose: 400 mls/hr Documented By: ERMELINDA Lactated Ringer's (Lr) 1,000 mls @ 80 mls/hr IV .[id number] SHANNON Stop: 02/08/25 02:44 Last Admin: 02/06/25 04:21 Dose: 80 mls/hr Documented By: Infusion: 02/06/25 04:21 Dose: Infused Documented By: Infusion: 02/06/25 01:45 Dose: 80 mls/hr Documented By: Infusion: 02/06/25 01:05 Dose: 0 mls/hr Documented By: Admin: 02/05/25 15:24 Dose: 80 mls/hr Documented By: Infusion: 02/05/25 15:24 Dose: Infused Documented By: Infusion: 02/05/25 06:28 Dose: 80 mls/hr Documented By: JEAN CARLOS Admin: 02/05/25 03:31 Dose: 80 mls/hr Documented By: JEAN CARLOS Ceftriaxone Sodium (Rocephin) 1,000 mg in 50 mls @ 100 mls/hr IV Q24H SHANNON Stop: 02/11/25 00:59 Last Infusion: 02/06/25 01:46 Dose: Infused Documented By: Admin: 02/06/25 01:05 Dose: 100 mls/hr Documented By: BRENNA Ioversol (Optiray 320 100ml) 93 ml IV ONCE ONE Stop: 02/04/25 23:42 Last Admin: 02/04/25 23:41 Dose: 93 ml Documented By: ASHLI Ketorolac Tromethamine (Ketorolac Tromethamine 15 Mg/Ml Vial) 10 mg IV NOW ONE Stop: 02/04/25 22:29 Last Admin: 02/04/25 22:44 Dose: 10 mg Documented By: SVETLANA Miscellaneous (Check Scopolamine Patch Placement) 1 each N/A QS SHANNON Stop: 02/08/25 05:59 Last Admin: 02/06/25 09:00 Dose: 1 each Documented By: Admin: 02/06/25 01:11 Dose: 1 each Documented By: Admin: 02/05/25 15:25 Dose: 1 each Documented By: ZIA Ondansetron HCl (Ondansetron Inj 2 Mg/Ml 2 Ml Vial) 4 mg IV NOW STA Stop: 02/04/25 22:29 Last Admin: 02/04/25 22:43 Dose: 4 mg Documented By: SVETLANA Ondansetron HCl (Ondansetron Inj 2 Mg/Ml 2 Ml Vial) 4 mg IV NOW STA Stop: 02/05/25 02:01 Last Admin: 02/05/25 02:15 Dose: 4 mg Documented By: ERMELINDA Ondansetron HCl (Ondansetron Inj 2 Mg/Ml 2 Ml Vial) 4 mg IV Q6H PRN PRN Reason: Nausea Stop: 03/07/25 03:11 Last Admin: 02/05/25 17:54 Dose: 4 mg Documented By: Admin: 02/05/25 12:00 Dose: 4 mg Documented By: ZIA Oxybutynin Chloride (Oxybutynin Chloride 5 Mg Tab) 5 mg PO BID SHANNON Stop: 03/07/25 09:59 Last Admin: 02/06/25 08:59 Dose: 5 mg Documented By: Admin: 02/05/25 21:31 Dose: 5 mg Documented By: Admin: 02/05/25 11:00 Dose: 5 mg Documented By: ZIA Scopolamine (Scopolamine 1 Mg/72 Hr Tdsy Patch) 1 patch TD UD PRN PRN Reason: nausea Last Admin: 02/05/25 03:31 Dose: 1 patch Documented By: JEAN CARLOS Tamsulosin HCl (Tamsulosin Hcl 0.4 Mg Cap) 0.4 mg PO NOW ONE Stop: 02/04/25 22:29 Last Admin: 02/04/25 22:43 Dose: 0.4 mg Documented By: SVETLANA Tamsulosin HCl (Tamsulosin Hcl 0.4 Mg Cap) 0.4 mg PO HS SHANNON Stop: 03/07/25 20:59 Last Admin: 02/05/25 21:31 Dose: 0.4 mg Documented By: BRENNA Imaging Data Radiologist's Impression: Abdomen/Pelvis CT 02/04/25 22:29 Exam(s): CT ABDOMEN + PELVIS With Contrast IV Amt: 93 cc opti 320 EXAM: CT Abdomen and Pelvis With Intravenous Contrast CLINICAL HISTORY: Right flank and RLQ - recent stone rem stent. TECHNIQUE: Axial computed tomography images of the abdomen and pelvis with intravenous contrast. CTDI is 12.95 mGy and DLP is 632.76 mGy-cm. Automated exposure control was utilized for the study. A dose lowering technique was utilized adhering to the principles of ALARA. CONTRAST: Patient received 93 cc opti 320 of IV contrast COMPARISON: 01/31/2025 FINDINGS: Lung bases: Unremarkable. No mass. No consolidation. ABDOMEN: Liver: Unremarkable. No mass. Gallbladder and bile ducts: Unremarkable. No calcified stones. No ductal dilation. Pancreas: Unremarkable. No mass. No ductal dilation. Spleen: Unremarkable. No splenomegaly. Adrenals: Unremarkable. No mass. Kidneys and ureters: Interval removal of a right ureteral stent. Increased mild right hydronephrosis and proximal hydroureter with mild enhancement of the linda of the renal pelvis and ureter suggesting inflammation/infection. No right renal or ureteral calculus. Punctate nonobstructing left renal calculi without left hydronephrosis or hydroureter. Kidneys are otherwise unremarkable. Stomach and bowel: Redemonstrated gastric sutures. No obstruction or ileus. Moderate stool throughout the colon. No evidence for diverticulitis. PELVIS: Appendix: Appendix not identified. No secondary findings to suggest acute appendicitis. Bladder: Partially contracted with minimal nonspecific wall thickening. No calculi. No mass. Reproductive: IUD within the uterus. Unchanged 3 cm left adnexal/ovarian cyst. Right ovary unremarkable. ABDOMEN and PELVIS: Intraperitoneal space: No free air. Trace pelvic free fluid. Bones/joints: No acute fracture. Degenerative changes of the spine. Soft tissues: Unremarkable. Vasculature: Unremarkable. No abdominal aortic aneurysm. Lymph nodes: Unremarkable. No enlarged lymph nodes. IMPRESSION: Interval removal of a right ureteral stent. Increased mild right hydronephrosis and proximal hydroureter with mild enhancement of the linda of the renal pelvis and ureter suggesting inflammation/infection. No right renal or ureteral calculus. Partially contracted with minimal nonspecific wall thickening. Otherwise no significant interval change. Electronically signed by: Marc Montgomery M.D. 02/05/25 01:45 AM Discharge Plan Visit Data Chief Complaint: Flank Pain Stated Complaint: RT FLANK PAIN FOLLOWING KIDNEY STONE REMOVAL ED Provider: William Gaitan ED Midlevel Provider: Amanda Zamarripa Discharge Problem: Right flank pain Patient Disposition: Admitted As Inpatient Condition: Fair Discharge Instructions Interventions: ED Discharge Assessment Last Done: 02/05/25 02:57
[2025-02-04] MEDS: HYDROmorphone INJ 0.5 MG/0.5 ML SYR IV STA (22:43)
[2025-02-04] MEDS: TAMSULOSIN HCL 0.4 MG CAP PO ONE (22:43)
[2025-02-04] MEDS: ONDANSETRON INJ 2 MG/ML 2 ML VIAL IV STA (22:43)
[2025-02-04] MEDS: SODIUM CHLORIDE 0.9% 1,000 ML IV ONE (22:44)
[2025-02-04] MEDS: KETOROLAC TROMETHAMINE 15 MG/ML VIAL IV ONE (22:44)
[2025-02-04 22:55] LABS: Hematocrit (blood only) 37.5 % (37.0-47.0); Hemoglobin 12.6 g/dl (12.0-16.0); Immature Granulocytes # (auto) 0.05 K/uL (0.01-0.20); Immature Granulocytes % (auto) 0.6 %; Mean Corpuscular Hemoglobin 28.8 pg (25.0-34.0); Mean Corpuscular Volume 85.6 fL (80.0-100.0); Platelet Count 268 K/uL (130-400); RDW Standard Deviation 41.5 fL (36.4-46.3); Red Blood Count 4.38 M/uL (4.20-5.40); White Blood Count 9.06 K/ul (4.8-10.8)
[2025-02-04 23:14] LABS: Alanine Aminotransferase 21.0 U/L (7-52); Albumin Globulin Ratio 0.8 (0.9-2); Alkaline Phosphatase 59.0 U/L (34-104); Anion Gap 7.0 (3-11); Bilirubin,Total 0.5 mg/dl (0.2-1.0); Blood Urea Nitrogen 12.0 mg/dl (6-23); Calcium 9.0 mg/dl (8.6-10.3); Carbon Dioxide 25.0 mmol/L (21-32); Chloride 107.0 mmol/L (98-107); Creatinine Clr Calc Pharmacy 84.8 ml/min; Globulin 3.7 gm/dl (2.5-4.0); Glucose 120.0 mg/dl (70-99(Fasting)); Lipase 28.0 U/L (11-82); Magnesium 1.9 mg/dl (1.7-2.4); Potassium 3.7 mmol/L (3.5-5.1); Sodium 139.0 mmol/L (136-145); Total Protein 6.6 gm/dl (6.0-8.3)
[2025-02-04 23:16] LABS: Appearance Urine Cloudy (Clear); Bacteria Urine Automated None Seen (None Seen); Glucose Urine UA Negative (Negative); RBC Urine Automated >20 /hpf (0-2); WBC Urine Automated 21-50 /hpf (0-5)
[2025-02-04] MEDS: OPTIRAY 320 100ml IV ONE (23:41)
--- NOTE | 2025-02-05 01:46 | CT Scan Report ---
Exam(s): CT ABDOMEN + PELVIS With Contrast IV Amt: 93 cc opti 320 EXAM: CT Abdomen and Pelvis With Intravenous Contrast CLINICAL HISTORY: Right flank and RLQ - recent stone rem stent. TECHNIQUE: Axial computed tomography images of the abdomen and pelvis with intravenous contrast. CTDI is 12.95 mGy and DLP is 632.76 mGy-cm. Automated exposure control was utilized for the study. A dose lowering technique was utilized adhering to the principles of ALARA. CONTRAST: Patient received 93 cc opti 320 of IV contrast COMPARISON: 01/31/2025 FINDINGS: Lung bases: Unremarkable. No mass. No consolidation. ABDOMEN: Liver: Unremarkable. No mass. Gallbladder and bile ducts: Unremarkable. No calcified stones. No ductal dilation. Pancreas: Unremarkable. No mass. No ductal dilation. Spleen: Unremarkable. No splenomegaly. Adrenals: Unremarkable. No mass. Kidneys and ureters: Interval removal of a right ureteral stent. Increased mild right hydronephrosis and proximal hydroureter with mild enhancement of the linda of the renal pelvis and ureter suggesting inflammation/infection. No right renal or ureteral calculus. Punctate nonobstructing left renal calculi without left hydronephrosis or hydroureter. Kidneys are otherwise unremarkable. Stomach and bowel: Redemonstrated gastric sutures. No obstruction or ileus. Moderate stool throughout the colon. No evidence for diverticulitis. PELVIS: Appendix: Appendix not identified. No secondary findings to suggest acute appendicitis. Bladder: Partially contracted with minimal nonspecific wall thickening. No calculi. No mass. Reproductive: IUD within the uterus. Unchanged 3 cm left adnexal/ovarian cyst. Right ovary unremarkable. ABDOMEN and PELVIS: Intraperitoneal space: No free air. Trace pelvic free fluid. Bones/joints: No acute fracture. Degenerative changes of the spine. Soft tissues: Unremarkable. Vasculature: Unremarkable. No abdominal aortic aneurysm. Lymph nodes: Unremarkable. No enlarged lymph nodes. IMPRESSION: Interval removal of a right ureteral stent. Increased mild right hydronephrosis and proximal hydroureter with mild enhancement of the linda of the renal pelvis and ureter suggesting inflammation/infection. No right renal or ureteral calculus. Partially contracted with minimal nonspecific wall thickening. Otherwise no significant interval change. Electronically signed by: Marc Montgomery M.D. 02/05/25 01:45 AM
[2025-02-05] MEDS: ACETAMINOPHEN 1,000 MG/100 ML VIAL IV STA (01:59)
[2025-02-05] MEDS: ONDANSETRON INJ 2 MG/ML 2 ML VIAL IV STA (02:15)
[2025-02-05] MEDS: cefTRIAXone SODIUM 2,000 MG/50 ML BAG IV STA (02:19)
--- NOTE | 2025-02-05 02:19 | History & Physical Report ---
Date of Service February 05, 2025 Assessment & Plan (1) Renal colic: Plan 29-year-old female PMHx renal calculi, pyelonephritis, cholecystectomy, rhinitis, DVT, factor II deficiency presenting for severe R sided flank pain after R stent removal today SHANK SORTER. CBC reveals no leukocytosis, stable H&H; CMP normal renal function, glucose 120, albumin 2.9, ratio 0.8; lipase 28; UA ? positive for infection; CTAP interval removal of R ureteral stent, increased mild right hydronephrosis and proximal hydroureter with mild enhancement of linda of the renal pelvis and ureter suggesting infection, no renal or ureteral calculus on R side.; Provided with tamsulosin 0.4 mg p.o., 1L NSS, Zofran 4 mg IV x 2, ketorolac 10 mg IV, hydromorphone 0.5 mg IV, ceftriaxone 2 g IV, and acetaminophen 1 g IV in ED. #Renal colic/? UTI Symptoms of R sided renal colic s/p stent removal day SHANK SORTER. She is without LUTS. Received 1 dose ceftriaxone in ED. - CBC without leukocytosis; BMP with normal renal function -- CBC, BMP a.m. 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 Please excuse any grammatical errors that may be secondary to use of this software. Admission and Anticipated Discharge Date Admission Date: 02/05/2025 History of Present Illness Chief Complaint: R flank pain Primary Care Provider: BELEM Pinzon 29-year-old female PMHx renal calculi, pyelonephritis, cholecystectomy, rhinitis, DVT, factor II deficiency presenting for severe R sided flank pain after R stent removal today SHANK SORTER. States that she had the stent removed at 0830 the day SHANK SORTER, and then at around 1930 she started to have a sudden onset of severe R sided flank pain, that radiated to her R abdomen and groin. "Unbearable" in nature, states it felt similar to her prior renal calculi. She had associated chills and felt warm to touch, but no documented fever. She had nausea as well. No LUTS, to include dysuria or hematuria, urgency or frequency. Does occasionally get lightheaded whenever she stands up too quickly. Denies chest pain, SOB, palpitations, diarrhea/constipation, numbness/tingling, fever/chills, URI symptoms, weakness, or syncope. CBC reveals no leukocytosis, stable H&H; CMP normal renal function, glucose 120, albumin 2.9, ratio 0.8; lipase 28; UA ? positive for infection; CTAP interval removal of R ureteral stent, increased mild right hydronephrosis and proximal hydroureter with mild enhancement of linda of the renal pelvis and ureter suggesting infection, no renal or ureteral calculus on R side.; Provided with tamsulosin 0.4 mg p.o., 1L NSS, Zofran 4 mg IV x 2, ketorolac 10 mg IV, hydromorphone 0.5 mg IV, ceftriaxone 2 g IV, and acetaminophen 1 g IV in ED. Please see Dr. Hernandez's attestation for adjustments/additions to treatment plan. Allergies Allergy/AdvReac Type Severity Reaction Status Date / Time morphine Allergy Severe SOB, CHEST Verified 02/04/25 23:08 PAIN, NAUSEA ampicillin [From Unasyn] Allergy Intermediate HIVES, Verified 02/04/25 23:08 REDDENED, SUPER ITCHY RASH house dust Allergy Intermediate Itchiness Verified 02/04/25 23:08 meperidine Allergy Intermediate HIVES Verified 02/04/25 23:08 promethazine [From Phenergan] Allergy Intermediate Hives Verified 02/04/25 23:08 sulbactam [From Unasyn] Allergy Intermediate HIVES, Verified 02/04/25 23:08 REDDENED, SUPER ITCHY RASH vancomycin AdvReac Intermediate Kidney Verified 02/04/25 23:08 function EFFECTED Home Medications Medication Instructions Recorded Confirmed Type levonorgestrel 21 mcg/24 hr (up to 21 mcg intrauterine CONTINOUS 01/28/25 02/04/25 History 8 years) 52 mg intrauterine device (Mirena) propranolol 20 mg tablet 20 mg PO DAILY 01/28/25 02/04/25 History oxycodone 5 mg tablet 10 mg (2 x 5 mg) PO Q8H PRN severe 01/30/25 02/04/25 Rx pain (scale score 7-10) #18 tabs tamsulosin 0.4 mg capsule 0.4 mg PO HS Ureteral stent 01/30/25 02/04/25 Rx discomfort #30 caps ondansetron 8 mg disintegrating 8 mg PO Q8H PRN nausea and 02/03/25 02/04/25 Rx tablet vomiting #30 tabs Past Med/Surg History Problem List Ureteral stent present (Acute) Edema (Acute) Anemia Right flank pain UTI (urinary tract infection) Kidney stone on right side (Acute) Person under investigation for COVID-19 (Acute) S/P surgical manipulation of ankle joint (Acute) Constipation (Acute 12/18/14) DVT (deep venous thrombosis) (Acute 10/19/13) DVT (deep venous thrombosis) (Acute) Dehydration (Acute) Flank pain (Acute) Intractable nausea and vomiting (Acute) Leg pain, left (Acute) Nephrolithiasis (Acute) Pyelonephritis (Acute) Renal colic (Acute) Tachycardia (Acute 10/20/13) Encounter for pre-operative examination Infected cat bite of hand Elevated blood pressure reading Asthma History of DVT (deep vein thrombosis) Factor II deficiency Migraine Tenosynovitis of hand (Acute) Cellulitis of hand, right (Acute) Cat bite (Acute) Failure of outpatient treatment (Acute) Encounter for pre-operative examination DVT prophylaxis Medical History Prediabetes Cellulitis of left leg current diagnosis Morbid obesity with BMI of 45.0-49.9, adult History of anesthesia reaction had "horrible chest pain upon waking up from tonsillectomy 05/2018 gave me something and I was ok" Nausea and vomiting after administration of anesthetic agent Kidney stones Deep vein thrombosis 2014--left leg Factor II deficiency Migraine Cardiac murmur Sleep apnea no device Asthma inhaler prn Surgical History History of incision and drainage right ring finger 06/19/19 History of esophagogastroduodenoscopy (EGD) Status post wrist surgery right History of ankle joint replacement x2 left Status post cystoscopy with ureteral stent placement History of section History of cholecystectomy History of wisdom tooth extraction History of tooth extraction all top teeth History of tonsillectomy Family History Mother Family history of reaction to anesthesia nausea/vomiting Grandfather (Maternal) Family history of diabetes mellitus Social History Smoking Status: Never smoker Second Hand Exposure: No; Do You Dip or Chew Tobacco: No; Hx Alcohol Use: No Hx Substance Use: No Preferred Language: Romanian Communication Ability: Effective 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: No Beliefs That Will Affect Care: None Current Living Situation: Spouse Current Living Situation Comment: Lives with son Feels Safe at Home: Yes Assistive Devices: None Review of Systems Review of Systems: All systems reviewed & are unremarkable except as noted in Subjective Physical Exam Physical Exam: General: No acute distress Skin: Warm and dry Head: Normocephalic, atraumatic Eyes: PERRL, conjunctivae clear, sclera non-icteric ENT: External ear and ear canal without swelling; nose atraumatic; good dentition, tongue normal appearance, pharynx normal Neck: Supple, no LAD Cardio: RRR, no M/G/R, S1 and S2 normal Resp: No respiratory distress, Lungs CTA in all lobes bilaterally, no wheezes, rales, or rhonchi Abdomen: Soft, symmetric, slight tenderness to palpation RLQ, R flank; No masses or hepatosplenomegaly; Bowel sounds normoactive MSK: No deformities; pulses palpable and equal; no edema. Neuro: Awake, alert; Sensation intact bilaterally; CN grossly intact Psych: Appropriate mood and affect; good judgement and insight. Results & Data Results & Data Vital Signs (Past 12 Hours) Vital Signs Temp Pulse Pulse Resp BP BP Pulse Ox 02/05/25 02:00 85 18 100/72 100 02/05/25 01:00 69 18 114/61 100 02/05/25 00:00 78 16 104/63 94 02/04/25 23:00 79 13 121/64 100 02/04/25 22:56 76 02/04/25 22:28 99 02/04/25 22:10 36.8 C 78 18 116/72 100 O2 Del Method 02/05/25 02:00 02/05/25 01:00 Room Air 02/05/25 00:00 02/04/25 23:00 Room Air 02/04/25 22:56 02/04/25 22:28 Room Air 02/04/25 22:10 Room Air Laboratory Results 02/04/25 22:38 Urine Culture - Pending Urine,Clean Catch 02/04/25 22:38 WBC 9.06 RBC 4.38 Hgb 12.6 Hct 37.5 MCV 85.6 MCH 28.8 MCHC 33.6 RDW Std Deviation 41.5 RDW Coeff of Jason 13.3 Plt Count 268 MPV 9.6 Immature Gran % (Auto) 0.6 Neut % (Auto) 74.4 Lymph % (Auto) 16.0 [place] % (Auto) 7.8 Eos % (Auto) 0.9 Baso % (Auto) 0.3 Neut # (Auto) 6.74 H Lymph # (Auto) 1.45 [place] # (Auto) 0.71 H Eos # (Auto) 0.08 Baso # (Auto) 0.03 Immature Gran # (Auto) 0.05 Sodium 139 Potassium 3.7 Chloride 107 Carbon Dioxide 25 Anion Gap 7 BUN 12 Creatinine 0.82 Est Cr Clr Drug Dosing 84.8 eGFR 98.62 BUN/Creatinine Ratio 14.6 Glucose 120 H Calcium 9.0 Magnesium 1.9 Total Bilirubin 0.5 AST 18 ALT 21 Alkaline Phosphatase 59 Total Protein 6.6 Albumin 2.9 L Globulin 3.7 Albumin/Globulin Ratio 0.8 L Lipase 28 Urine Color Yellow Urine Appearance Cloudy A Urine pH 5.5 Ur Specific [place] 1.021 Urine Protein 3+ H Urine Glucose (UA) Negative Urine Ketones Trace H Urine Blood 3+ H Urine Nitrite Negative Urine Bilirubin Negative Urine Urobilinogen Negative Ur Leukocyte Esterase 1+ H Urine WBC (Auto) 21-50 H Urine RBC (Auto) >20 H U Hyaline Cast (Auto) 3-5 H U Epithel Cells (Auto) 11-20 H Urine Bacteria (Auto) None Seen Urine Test Negative Urine Comment Diagnostic Findings Abdomen/Pelvis CT 02/04/25 22:29 Exam(s): CT ABDOMEN + PELVIS With Contrast IV Amt: 93 cc opti 320 EXAM: CT Abdomen and Pelvis With Intravenous Contrast CLINICAL HISTORY: Right flank and RLQ - recent stone rem stent. TECHNIQUE: Axial computed tomography images of the abdomen and pelvis with intravenous contrast. CTDI is 12.95 mGy and DLP is 632.76 mGy-cm. Automated exposure control was utilized for the study. A dose lowering technique was utilized adhering to the principles of ALARA. CONTRAST: Patient received 93 cc opti 320 of IV contrast COMPARISON: 01/31/2025 FINDINGS: Lung bases: Unremarkable. No mass. No consolidation. ABDOMEN: Liver: Unremarkable. No mass. Gallbladder and bile ducts: Unremarkable. No calcified stones. No ductal dilation. Pancreas: Unremarkable. No mass. No ductal dilation. Spleen: Unremarkable. No splenomegaly. Adrenals: Unremarkable. No mass. Kidneys and ureters: Interval removal of a right ureteral stent. Increased mild right hydronephrosis and proximal hydroureter with mild enhancement of the linda of the renal pelvis and ureter suggesting inflammation/infection. No right renal or ureteral calculus. Punctate nonobstructing left renal calculi without left hydronephrosis or hydroureter. Kidneys are otherwise unremarkable. Stomach and bowel: Redemonstrated gastric sutures. No obstruction or ileus. Moderate stool throughout the colon. No evidence for diverticulitis. PELVIS: Appendix: Appendix not identified. No secondary findings to suggest acute appendicitis. Bladder: Partially contracted with minimal nonspecific wall thickening. No calculi. No mass. Reproductive: IUD within the uterus. Unchanged 3 cm left adnexal/ovarian cyst. Right ovary unremarkable. ABDOMEN and PELVIS: Intraperitoneal space: No free air. Trace pelvic free fluid. Bones/joints: No acute fracture. Degenerative changes of the spine. Soft tissues: Unremarkable. Vasculature: Unremarkable. No abdominal aortic aneurysm. Lymph nodes: Unremarkable. No enlarged lymph nodes. IMPRESSION: Interval removal of a right ureteral stent. Increased mild right hydronephrosis and proximal hydroureter with mild enhancement of the linda of the renal pelvis and ureter suggesting inflammation/infection. No right renal or ureteral calculus. Partially contracted with minimal nonspecific wall thickening. Otherwise no significant interval change. Electronically signed by: Marc Montgomery M.D. 07/26/25 01:45 AM Medications Administered Tamsulosin 0.5 mg po 1L NSS Zofran 4 mg IV x 2 Hydromorphone 0.5 mg IV Ceftriaxone 2 mg IV Acetaminophen 1 g IV Code Status & VTE Plan Code Status Full PG Care Time/CCT Total # of Minutes Spent Total Time Spent with Patient: Total time spent is greater than 50% in coordination of care (as documented) at patient's floor/unit and/or counseling patient: Coding Level of Care Code 24368 INT INP/OBS CARE 375MIN Diagnoses Renal colic N23
[2025-02-05] MEDS ORDERED: HYDROmorphone INJ 0.5 MG/0.5 ML SYR IV PRN ×4 (02:47→09:34)
--- NOTE | 2025-02-05 02:57 | Urology Consultation ---
<Statement entered by Colt Farmer MD - 02/05/25 11:22> 29-year-old female s/p right ureteral stent removal on 02/04/2025, now with right-sided flank pain most likely related to irritation/ureteral spasm. I have relatively low suspicion for urinary tract infection, with normal leukocytosis and no bacteria on urinalysis, however it is reasonable to cover with empiric an tibiotics. Would recommend pain control with Tylenol, ibuprofen, tamsulosin, Pyridium, narcotics if needed. Hopefully this is just an inflammatory process and will settle down over the next couple days. I do not appreciate any obstructions on her CT scan. She does not require replacement of ureteral stent at this time or additional urologic intervention. We also discussed the possible role for outpatient stone prevention workup and she was interested in this being done. Urology will follow along Date of Consultation February 05, 2025 Assessment & Plan (1) Right flank pain: I discussed with the treating clinician emergency department and due to the patient's poor pain control she is going to be admitted on the hospitalist service. From a urologic perspective we recommend the following: I suspect the patient is suffering from ureteral spasm from her recent ureteral stent removal. By imaging and urinalysis there is also concern she may have an underlying urinary tract infection Provide analgesics Provide antiemetics Antibiotics in form of Rocephin has been initiated and he should continue. Urine culture has been sent and antibiotics to be tailored based on these results Intravenous fluids have been initiated for hydration should continue Serial labs to be followed Additional recommendations will be made based on her clinical course as it unfolds History of Present Illness Reason for Consultation: Right flank pain, status post ureteral stent removal History of Present Illness This is a 29-year-old female who presented to the emergency department secondary to right flank pain. This patient called this provider earlier this evening as she was having right flank pain. The patient had a cystoscopy with kidney stone basket extraction and right ureteral stent placement by Dr. Ovalle on 01/29/2025. The patient was seen in the urology office earlier today by Dr. Ovalle at which time she had her stent removed. The patient subsequently developed right-sided flank pain. She attempted taking oxycodone as well as Tylenol at home with no avail to her pain. When she called this provider I also suggested she add Motrin to her pain regimen which she did but she noted no improvement. She says she has not had any fevers but she is having some intermittent chills. She is also having right flank pain as well as nausea and vomiting. She notes that she is urinating without difficulty or hematuria. The patient did present to the emergency department as described above where she had labs and imaging which independent reviewed. CBC revealed white blood cell count, hemoglobin, hematocrit, and platelet count were all normal. Chemistry profile showed sodium and potassium as well as the BUN and creatinine were normal. Urinalysis was negative for nitrites but had 1+ leukocyte esterase and pyuria with 21-50 white blood cells per high-power field. There are no bacteria noted on the study and a test was negative. She did have a CT scan abdomen pelvis which showed patient had some mild right hydronephrosis which appeared to be increased from previous studies. There is some enhancement of the linda of the renal pelvis and ureter suggesting inflammation or infection. At the time of my interview the patient was in no distress. Allergies Allergy/AdvReac Type Severity Reaction Status Date / Time morphine Allergy Severe SOB, CHEST Verified 02/04/25 23:08 PAIN, NAUSEA ampicillin [From Unasyn] Allergy Intermediate HIVES, Verified 02/04/25 23:08 REDDENED, SUPER ITCHY RASH house dust Allergy Intermediate Itchiness Verified 02/04/25 23:08 meperidine Allergy Intermediate HIVES Verified 02/04/25 23:08 promethazine [From Phenergan] Allergy Intermediate Hives Verified 02/04/25 23:08 sulbactam [From Unasyn] Allergy Intermediate HIVES, Verified 02/04/25 23:08 REDDENED, SUPER ITCHY RASH vancomycin AdvReac Intermediate Kidney Verified 02/04/25 23:08 function EFFECTED Home Medications Medication Instructions Recorded Confirmed Type levonorgestrel 21 mcg/24 hr (up to 21 mcg intrauterine CONTINOUS 01/28/25 02/04/25 History 8 years) 52 mg intrauterine device (Mirena) propranolol 20 mg tablet 20 mg PO DAILY 01/28/25 02/04/25 History oxycodone 5 mg tablet 10 mg (2 x 5 mg) PO Q8H PRN severe 01/30/25 02/04/25 Rx pain (scale score 7-10) #18 tabs tamsulosin 0.4 mg capsule 0.4 mg PO HS Ureteral stent 01/30/25 02/04/25 Rx discomfort #30 caps ondansetron 8 mg disintegrating 8 mg PO Q8H PRN nausea and 02/03/25 02/04/25 Rx tablet vomiting #30 tabs Patient History Medical History Prediabetes Cellulitis of left leg current diagnosis Morbid obesity with BMI of 45.0-49.9, adult History of anesthesia reaction had "horrible chest pain upon waking up from tonsillectomy 05/2018 gave me something and I was ok" Nausea and vomiting after administration of anesthetic agent Kidney stones Deep vein thrombosis 2014--left leg Factor II deficiency Migraine Cardiac murmur Sleep apnea no device Asthma inhaler prn Surgical History History of incision and drainage right ring finger 06/19/19 History of esophagogastroduodenoscopy (EGD) Status post wrist surgery right History of ankle joint replacement x2 left Status post cystoscopy with ureteral stent placement History of section History of cholecystectomy History of wisdom tooth extraction History of tooth extraction all top teeth History of tonsillectomy Family History Mother Family history of reaction to anesthesia nausea/vomiting Grandfather (Maternal) Family history of diabetes mellitus Social History Smoking Status: Never smoker Second Hand Exposure: No; Do You Dip or Chew Tobacco: No; Hx Alcohol Use: No Hx Substance Use: No Preferred Language: Greek Communication Ability: Effective 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: No Beliefs That Will Affect Care: None Current Living Situation: Spouse Current Living Situation Comment: Lives with son Feels Safe at Home: Yes Assistive Devices: None Review of Systems Review of Systems: All systems reviewed & are unremarkable except as noted in HPI & below Physical Exam Constitutional: WD/WN, vitals as above Eyes: no conjunctival abnormality ENMT: Ears: no hearing impairment and no external ear abnormality Neck: trachea midline Respiratory: normal respiratory effort; no respiratory distress and no labored breathing Cardiovascular: Rate/Rhythm: regular rate and regular rhythm Gastrointestinal (Abdomen): Soft and nondistended Musculoskeletal: No calf tenderness Skin: no rashes Neurologic: moves all extremities Psychiatric: A+Ox3, euthymic affect Genitourinary: CVA tenderness noted with percussion of the right flank, no CVA tenderness with percussion of the left flank Results & Data Vital Signs (Past 12 Hours) Vital Signs Temp Pulse Pulse Resp BP BP Pulse Ox 02/05/25 02:52 79 18 114/74 98 02/05/25 02:00 85 18 100/72 100 02/05/25 01:00 69 18 114/61 100 02/05/25 00:00 78 16 104/63 94 02/04/25 23:00 79 13 121/64 100 02/04/25 22:56 76 02/04/25 22:28 99 02/04/25 22:10 36.8 C 78 18 116/72 100 O2 Del Method 02/05/25 02:52 Room Air 02/05/25 02:00 02/05/25 01:00 Room Air 02/05/25 00:00 02/04/25 23:00 Room Air 02/04/25 22:56 02/04/25 22:28 Room Air 02/04/25 22:10 Room Air PG Care Time/CCT Total # of Minutes Spent Total Time Spent with Patient: Total time spent is greater than 50% in coordination of care (as documented) at patient's floor/unit and/or counseling patient: Coding Level of Care Code None Diagnoses Right flank pain R10.9
[2025-02-05] MEDS ORDERED: PROPRANOLOL HCL 20 MG TAB PO PRN (03:12)
[2025-02-05] MEDS ORDERED: ACETAMINOPHEN 325 MG TAB PO PRN (03:12)
[2025-02-05] MEDS ORDERED: POLYETHYLENE (MIRALAX) 17 GM PACK PO PRN (03:12)
[2025-02-05] MEDS ORDERED: MELATONIN 3 MG TAB PO PRN (03:12)
[2025-02-05] MEDS: LACTATED RINGER'S 1,000 ML IV SCH (03:31)
[2025-02-05] MEDS: SCOPOLAMINE 1 MG/72 HR TDSY PATCH TD PRN (03:31)
[2025-02-05 05:44] LABS: Hematocrit (blood only) 33.5 % (37.0-47.0); Hemoglobin 11.1 g/dl (12.0-16.0); Mean Corpuscular Hemoglobin 28.7 pg (25.0-34.0); Mean Corpuscular Volume 86.6 fL (80.0-100.0); Platelet Count 221 K/uL (130-400); RDW Standard Deviation 42.6 fL (36.4-46.3); Red Blood Count 3.87 M/uL (4.20-5.40); White Blood Count 7.71 K/ul (4.8-10.8)
[2025-02-05] MEDS: HYDROmorphone INJ 0.5 MG/0.5 ML SYR IV PRN (05:56)
[2025-02-05 06:01] LABS: Anion Gap 4.0 (3-11); Blood Urea Nitrogen 9.0 mg/dl (6-23); Calcium 8.2 mg/dl (8.6-10.3); Carbon Dioxide 24.0 mmol/L (21-32); Chloride 109.0 mmol/L (98-107); Creatinine Clr Calc Pharmacy 113.1 ml/min; Glucose 119.0 mg/dl (70-99(Fasting)); Potassium 3.9 mmol/L (3.5-5.1); Sodium 137.0 mmol/L (136-145)
[2025-02-05] MEDS ORDERED: KETOROLAC TROMETHAMINE 15 MG/ML VIAL IV PRN (09:53)
[2025-02-05] MEDS: ACETAMINOPHEN 500 MG TAB PO SCH (10:59)
[2025-02-05] MEDS: ONDANSETRON INJ 2 MG/ML 2 ML VIAL IV PRN (12:00)
--- NOTE | 2025-02-05 12:43 | Hospitalist Progress Note ---
Date of Service February 05, 2025 Assessment & Plan (1) Renal colic: Plan 29-year-old female PMHx renal calculi, pyelonephritis, cholecystectomy, rhinitis, DVT, factor II deficiency presenting for severe R sided flank pain after R stent removal today [employer]LY[employer]. CBC reveals no leukocytosis, stable H&H; CMP normal renal function, glucose 120, albumin 2.9, ratio 0.8; lipase 28; UA ? positive for infection; CTAP interval removal of R ureteral stent, increased mild right hydronephrosis and proximal hydroureter with mild enhancement of linda of the renal pelvis and ureter suggesting infection, no renal or ureteral calculus on R side.; Provided with tamsulosin 0.4 mg p.o., 1L NSS, Zofran 4 mg IV x 2, ketorolac 10 mg IV, hydromorphone 0.5 mg IV, ceftriaxone 2 g IV, and acetaminophen 1 g IV in ED. #Renal colic/ UTI Symptoms of R sided renal colic s/p stent removal day [employer]LY[employer]. She is without LUTS. Received 1 dose ceftriaxone in ED. CBC/BMP stable UA + for UTI; UC pending CTAP: interval removal of right ureteral stent, increased mild right hydronephrosis & proximal hydroureter w/ mild enhancement of linda of renal pelvis/ureter suggesting infection Scheduled Tylenol 1000mg TID; Added Oxybutynin BID Diluadid 0.25mg for severe pain (8,9,10) on pain scale; Can trial pyridium prn as well. Continue Scopolamine patch & Zofran prn for N/V Continue Flomax Continue Rocephin Urology consulted --> symptoms consistent with irritation/ureteral spasm. Can cover w/ abx in event of UTI given + urinalysis. 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 Admission and Anticipated Discharge Date Admission Date: February 05, 2025 Gayle Barcenas was seen and examined this morning. She states she continues to feel nauseous, has not vomited since around 4am. she does state that narcotics tend to worsen her nausea. Reports her right flank pain is still present and will be sharp at times and then decreases in intensity. States she has had ongoing kidney stone issues since she was a teenager and she hasn't had any issues like this thus far. Physical Exam Constitutional: WD/WN, vitals as above Eyes: PERRL, conjunctivae normal, anicteric sclerae Respiratory: normal respiratory effort Cardiovascular: no LE edema Neurologic: PERRL, EOMI, accommodation nl, no face palsy, no dysarthria Psychiatric: A+Ox3, euthymic affect Results & Data Results & Data Vital Signs (Past 12 Hours) Vital Signs Temp Pulse Pulse Pulse Resp BP BP 02/05/25 07:07 36.6 C 78 16 97/55 L 02/05/25 03:15 36.5 C 70 16 109/75 02/05/25 02:52 79 18 02/05/25 02:00 85 18 100/72 02/05/25 01:00 69 18 BP Pulse Ox O2 Del Method 02/05/25 07:07 97 Room Air 02/05/25 03:15 100 Room Air 02/05/25 02:52 114/74 98 Room Air 02/05/25 02:00 100 02/05/25 01:00 114/61 100 Room Air PG Care Time/CCT Total # of Minutes Spent Total Time Spent with Patient: Total time spent is greater than 50% in coordination of care (as documented) at patient's floor/unit and/or counseling patient: Coding Level of Care Code None Diagnoses Renal colic N23
[2025-02-05] MEDS ORDERED: PHENAZOPYRIDINE HCL 200 MG TAB PO PRN (12:58)
[2025-02-05] MEDS: CHECK SCOPOLAMINE PATCH PLACEMENT SCH (15:25)
[2025-02-05] MEDS: TAMSULOSIN HCL 0.4 MG CAP PO SCH (21:31)
[2025-02-06] MEDS: cefTRIAXone SODIUM 1,000 MG/50 ML BAG IV SCH (01:05)
[2025-02-06 06:58] LABS: Hematocrit (blood only) 32.6 % (37.0-47.0); Hemoglobin 10.9 g/dl (12.0-16.0); Mean Corpuscular Hemoglobin 29.2 pg (25.0-34.0); Mean Corpuscular Volume 87.4 fL (80.0-100.0); Platelet Count 190 K/uL (130-400); RDW Standard Deviation 43.6 fL (36.4-46.3); Red Blood Count 3.73 M/uL (4.20-5.40); White Blood Count 4.37 K/ul (4.8-10.8)
[2025-02-06 07:35] LABS: Anion Gap 2.0 (3-11); Blood Urea Nitrogen 8.0 mg/dl (6-23); Calcium 8.4 mg/dl (8.6-10.3); Carbon Dioxide 28.0 mmol/L (21-32); Chloride 110.0 mmol/L (98-107); Creatinine Clr Calc Pharmacy 109.6 ml/min; Glucose 84.0 mg/dl (70-99(Fasting)); Potassium 4.3 mmol/L (3.5-5.1); Sodium 140.0 mmol/L (136-145)
[2025-02-06 08:13] VITALS: BP 101/64; PULSE 86; RESP 16; TEMP 98.2; O2SAT 94
--- NOTE | 2025-02-06 09:49 | Discharge Summary ---
Discharge Summary Date of Service February 06, 2025 Principal Dx & Hospital Course #1 = Principal Diagnosis (1) Renal colic: Plan 29-year-old female PMHx renal calculi, pyelonephritis, cholecystectomy, rhinitis, DVT, factor II deficiency presenting for severe R sided flank pain after R stent removal today [employer]. CBC reveals no leukocytosis, stable H&H; CMP normal renal function, glucose 120, albumin 2.9, ratio 0.8; lipase 28; UA ? po sitive for infection; CTAP interval removal of R ureteral stent, increased mild right hydronephrosis and proximal hydroureter with mild enhancement of linda of the renal pelvis and ureter suggesting infection, no renal or ureteral calculus on R side.; Provided with tamsulosin 0.4 mg p.o., 1L NSS, Zofran 4 mg IV x 2, ketorolac 10 mg IV, hydromorphone 0.5 mg IV, ceftriaxone 2 g IV, and acetaminophen 1 g IV in ED. #Renal colic/ UTI Symptoms of R sided renal colic s/p stent removal day [employer]. She is without LUTS. Received 1 dose ceftriaxone in ED. CBC/BMP stable UA + for UTI; UC re-incubating CTAP: interval removal of right ureteral stent, increased mild right hydronephrosis & proximal hydroureter w/ mild enhancement of linda of renal pelvis/ureter suggesting infection Scheduled Tylenol 1000mg TID; Oxybutynin BID --> improvement of symptoms w/ this regimen Zofran prn for N/V on dc Continue Flomax s/p Rocephin x2 --> sent home w/ 3 additional days of Cefdinir to complete Abx course. Urology consulted --> symptoms consistent with irritation/ureteral spasm. Can cover w/ abx in event of UTI given + urinalysis. Recommending pain control Follow up w/ urology on discharge. 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 "Unbearable" in nature, states it felt similar to her prior renal calculi. She had associated chills and felt warm to touch, but no documented fever. She had nausea as well. No LUTS, to include dysuria or hematuria, urgency or frequency. Does occasionally get lightheaded whenever she stands up too quickly. Denies chest pain, SOB, palpitations, diarrhea/constipation, numbness/tingling, fever/chills, URI symptoms, weakness, or syncope. CBC reveals no leukocytosis, stable H&H; CMP normal renal function, glucose 120, albumin 2.9, ratio 0.8; lipase 28; UA ? positive for infection; CTAP interval removal of R ureteral stent, increased mild right hydronephrosis and proximal hydroureter with mild enhancement of linda of the renal pelvis and ureter suggesting infection, no renal or ureteral calculus on R side.; Provided with tamsulosin 0.4 mg p.o., 1L NSS, Zofran 4 mg IV x 2, ketorolac 10 mg IV, hydromorphone 0.5 mg IV, ceftriaxone 2 g IV, and acetaminophen 1 g IV in ED. Please see Dr. Hernandez's attestation for adjustments/additions to treatment plan. Discharge Exam Constitutional WD/WN, vitals as above Eyes PERRL, conjunctivae normal, anicteric sclerae Respiratory normal respiratory effort Neurologic PERRL, EOMI, accommodation nl, no face palsy, no dysarthria Psychiatric A+Ox3, euthymic affect Discharge Plan Discharge Items Patient Disposition: Home - Self-Care Reason For Visit: UTI, RENAL COLIC Discharge Diagnosis: UTI, Ureteral spasm Condition on Discharge: Fair Activity: Resume your previous activity Non-emergency contact: Primary Care Provider and Urologist Call non-emergency contact if: you have any medication questions, your symptoms worsen and you have a fever Follow-up/Referrals: Colt Farmer MD [Physician] - Lalitha Florez CRNP [Primary Care Provider] - Diet: Regular Addtl Attending Provider Instructions: Ms. Prince, Roberto were recently hospitalized for right flank pain. You were found to have ureteral spasms and concern for a UTI. You were treated with antibiotics and pain medication with improvement of your symptoms. Please see recommendations below regarding your discharge. Please take Cefdinir twice daily for 3 days. Your first dose at home will be this evening, 02/06. You may take with food to avoid GI upset. Please take Oxybutynin Chloride twice daily to help with ureteral pain. Please use Tylenol or Ibuprofen as needed over the counter for continued pain. Please use your home Zofran as needed for nausea or vomiting. Please follow up with urology on an outpatient basis. If symptoms worsen, their phone number is above. Please follow up with your PCP within 1-2 weeks of discharge for continued care. Best of luck! Gemma Fuentes PA-C Pending Studies at Discharge: Yes Studies:: urine culture Stand-Alone Forms: Work/School Release (ED), My [facility] [employer], Smoking C essation Medications and DC Order Prescriptions: New oxybutynin chloride 5 mg Tablet 5 mg PO BID Qty: 60 0RF cefdinir 300 mg capsule 300 mg PO BID Qty: 6 0RF Continued ondansetron 8 mg tablet,disintegrating 8 mg PO Q8H PRN (Reason: nausea and vomiting) Qty: 30 0RF Mirena 21 mcg/24hr (up to 8 yrs) 52 mg Intrauterine Device 21 mcg intrauterine CONTINOUS propranolol 20 mg Tablet 20 mg PO DAILY tamsulosin 0.4 mg Capsule 0.4 mg PO HS Qty: 30 0RF Rx Instructions: Take 1 capsule at night oxycodone 5 mg Tablet 10 mg PO Q8H MDD 30mg PRN (Reason: severe pain (scale score 7-10)) Qty: 18 0RF Rx Instructions: Take 1 to 2 tablets by mouth every 8 hours as needed for breakthrough pain Discharge Orders: Discharge Order (Routine); Ordered 02/06/25 Ordered By: Gemma Fuentes Admission Data Admit Date/Time: 02/05/25 02:22 Attending Provider: Adilene Cadena Admit Provider: Erika Hernandez Primary Care Provider: Lalitha Florez Other Providers: Erika Hernandez; Colt Farmer Other Interventions: Discharge Summary Assessment (RN) Last Done: 02/06/25 10:09 Hospital Stay Data Consultations 02/05/25 02:01 ED Decision to Admit Stat 02/05/25 03:12 Consult Urology Routine Diagnostic Imagining Performed 02/04/25 22:29 CT abd pelvis IV con only Stat Pending Results Patient Have Any Pending Studies at Discharge: Yes Discharge Instructions Given to Patient (Per Discharging Provider) Ms. Prince, Roberto were recently hospitalized for right flank pain. You were found to have ureteral spasms and concern for a UTI. You were treated with antibiotics and pain medication with improvement of your symptoms. Please see recommendations below regarding your discharge. Please take Cefdinir twice daily for 3 days. Your first dose at home will be this evening, 02/06. You may take with food to avoid GI upset. Please take Oxybutynin Chloride twice daily to help with ureteral pain. Please use Tylenol or Ibuprofen as needed over the counter for continued pain. Please use your home Zofran as needed for nausea or vomiting. Please follow up with urology on an outpatient basis. If symptoms worsen, their phone number is above. Please follow up with your PCP within 1-2 weeks of discharge for continued care. Best of luck! Gemma Fuentes PA-C Total Time Total Time Spent Total Time Spent (In Minutes): 45 Total Time Includes: Examination of the Patient, Discharge Planning and Medication Reconciliation Coding Level of Care Code 03766 INP/OBS DISCH >30 MIN Diagnoses Renal colic N23
--- NOTE | 2025-02-06 09:56 | Urology Progress Note ---
Date of Service February 06, 2025 Assessment & Plan (1) Right flank pain: Plan: Flank pain has largely resolved at this point s/p right ureteral stent removal. I think would be reasonable for discharge home, she can continue Tylenol and ibuprofen as needed. No plan for surgical intervention at this time. Urology will coordinate outpatient follow-up. Please call with any questions or concerns Admission and Anticipated Discharge Date Admission Date: February 05, 2025 Subjective Feeling well this morning Denies any flank pain has not required pain medication since yesterday No nausea or vomiting Reports occasional chills, no fevers. Denies any dysuria. Physical Exam Physical Exam: Well-appearing, NAD. Resting comfortably in bed Results & Data Vital Signs (Past 12 Hours) Vital Signs Temp Pulse Resp BP Pulse Ox O2 Del Method 02/06/25 08:13 36.8 C 86 16 101/64 94 Room Air PG Care Time/CCT Total # of Minutes Spent Total Time Spent with Patient: Total time spent is greater than 50% in coordination of care (as documented) at patient's floor/unit and/or counseling patient: Coding Level of Care Code 83073 SUB INP/OBS CARE 25MIN Diagnoses Right flank pain R10.9
[2025-02-08] MEDS ORDERED: REMOVE TRANSDERM-SCOP PATCH ONE (06:00)
== END 2025-02-06 10:45 | disposition home or self-care (01) ==
LOC: ED 22:08 → 3E 22:08 → SUATTDRO 02-05 02:22 → 3E 02-05 02:57